=== PATIENT | female | born 1955 | race Caucasian/White ===

== ENCOUNTER → 2016-10-21 | Outpatient (CLI) | payer OTHER ==
[~2016-10-21] MED LIST: ALBU17IN INH; MULT1TAB10 PO; VITA30004 PO
--- NOTE | 2016-10-21 11:02 | REPMRS ---
Patient History The patient states she had a clinical breast exam in 10/28 Baseline Mammogram Patient is postmenopausal. Family history of breast cancer in mother at age 50 or over. Digital Woman Screen Mammo: October 21, 2016 - Exam #: [id number] Bilateral CC and MLO view(s) were taken. Technologist: Soila Solis, Technologist FINDINGS: There are scattered fibroglandular densities. There is no evidence of dominant mass, architectural distortion, or clustered microcalcification typical of malignancy. ASSESSMENT: BI-RADS/ACR category 1 mammogram. Negative. Recommendation Routine screening mammogram of both breasts in 1 year (for women over age 40). This mammogram was interpreted with the aid of an FDA-approved computer-aided dectection system. Electronically Signed By: Stas Dalton MD 10/21/16 [id number]
== END ==
LOC: M WHC 08:10
PROVIDERS: ATTEND Nurse Practitioner Family
DX: Z12.31 Encounter for screening mammogram for malignant neoplasm of breast (principal)

== ENCOUNTER → 2016-10-21 | Outpatient (REF) | payer OTHER | LOC: M SFHCWAGY 08:44 | PROVIDERS: ATTEND Nurse Practitioner Family | DX: Z12.4 Encounter for screening for malignant neoplasm of cervix (principal) ==

== ENCOUNTER → 2017-02-05 | Outpatient (CLI) | payer OTHER ==
[2017-02-05 13:39] LABS: FREE T4 0.95 NG/DL (0.76-1.46)
== END ==
LOC: M LAB 11:34
PROVIDERS: ATTEND Family Medicine
DX: F32.9 Major depressive disorder, single episode, unspecified (principal); E55.9 Vitamin D deficiency, unspecified

== ENCOUNTER → 2017-03-26 | Outpatient (REF) | payer OTHER | LOC: M SFHCPLAZ 15:22 | PROVIDERS: ATTEND Family Medicine | DX: N12 Tubulo-interstitial nephritis, not specified as acute or chronic (principal) ==

== ENCOUNTER 2017-04-14 01:04 | Inpatient (IN) | payer OTHER ==
[~2017-04-14] VITALS: Ht 162.6 cm; Wt 62.6 kg
[2017-04-14] MEDS ORDERED: ALBU83IN INH ×2 (01:13→06:07)
[2017-04-14] MEDS ORDERED: AMBI10TA PO (01:23)
[2017-04-14] MEDS ORDERED: PHEN-239 PO (01:23)
[2017-04-14] MEDS ORDERED: MITI1CAP PO (01:23)
[2017-04-14 02:10] LABS: BASO % 0.2 % (0.0-1.0); EOS # 0.2 K/mm3 (0.0-0.50); EOS % 2.3 % (0.0-3.0); LARGE UNSTAINED CELL # 0.1 K/mm3 (0.0-0.4); LARGE UNSTAINED CELL % 0.7 % (0.0-4.0); LYMPH # 1.6 K/mm3 (1.5-4.5); LYMPH % 19.5 % (24.0-44.0); MEAN CORPUSCULAR HEMOGLOBIN 29.3 pg (27.0-33.0); MEAN CORPUSCULAR HGB CONC 33.4 g/dl (32.0-36.5); MEAN CORPUSCULAR VOLUME 87.6 fl (80.0-96.0); MONO # 0.5 K/mm3 (0.0-0.8); MONO % 5.8 % (0.0-5.0); NEUTROPHILS # 5.7 K/mm3 (1.8-7.7); NEUTROPHILS % 71.4 % (36.0-66.0); PLATELET COUNT, AUTOMATED 307 k/mm3 (150-450); RED CELL DISTRIBUTION WIDTH 12.6 % (11.5-14.5)
[2017-04-14] MEDS ORDERED: IPRATROPIUM 0.5MG/ALBUTEROL 2.5MG INH SOL UD 3ML (DUONEB)(J7620) NEB PRN ×2 (02:15→09:45)
[2017-04-14 02:38] LABS: ABG BASE EXCESS 2.2 (-2.0-2.0); ABG HCO3 25.3 MEQ/L (22.0-26.0); ABG PARTIAL PRESSURE CO2 34.4 mmHg (35.0-45.0); ABG PARTIAL PRESSURE O2 67.5 mmHg (75.0-100.0); ABG STANDARD HCO3 26.4 MEQ/L (22.0-26.0); ABG TOTAL CO2 26.4 MEQ/L (23.0-31.0); ABG pH (ARTERIAL) 7.485 UNITS (7.350-7.450)
[2017-04-14 02:52] LABS: ANION GAP 7 MEQ/L (8-16); BLOOD UREA NITROGEN 8 MG/DL (7-18); CALCIUM LEVEL 9.4 MG/DL (8.8-10.2); CARBON DIOXIDE LEVEL 29 MEQ/L (21-32); CHLORIDE LEVEL 100 MEQ/L (98-107); CREATININE FOR GFR 1.09 MG/DL (0.55-1.02); GLOMERULAR FILTRATION RATE 54.1 (>45); GLUCOSE, FASTING 117 MG/DL (80-110); SODIUM LEVEL 136 MEQ/L (136-145)
[2017-04-14] MEDS ORDERED: ISOVUE-370 76% 100ML VIAL (Q9967) As Ordered ONE (03:35)
--- NOTE | 2017-04-14 04:40 | REPUSA ---
CLINICAL HISTORY: Dyspnea, exclude PE. TECHNIQUE: Multiple incremental axial, coronal and oblique images are obtained from the thoracic inle t to the upper abdomen. Intravenous contrast material was administered as per pulmonary embolism prot ocol. COMMENTS: 6.8x5.9 cm right hilar/middle lobe necrotic mass. Associated right hilar lymphadenopathy measuring 1.5 cm. Associated subcarinal lymphadenopathy measuring 3.2 cm. Moderate changes of chronic bronchitis. Moderate changes of centrilobular pulmonary emphysema. Small sliding hiatal hernia. Small pericardial effusion. Subsegmental atelectatic changes in the lingula. There is excellent opacification of pulmonary arterial system without evidence for pulmonary embolism . Aorta is of normal caliber without evidence for dissection or aneurysm. There is no evidence of pleural or parenchymal mass. There are no pleural effusions. Images of the upper abdomen demonstrate no evidence of adrenal mass. The bony structures are free of lytic or blastic lesions. Multilevel degenerative changes are seen in volving the visualized thoracolumbar spine. Scattered calcifications are seen involving the aorta and major branches compatible with atherosclero sis. IMPRESSION: No evidence for pulmonary embolism. 6.8x5.9 cm right hilar/middle lobe necrotic mass. Associated right hilar lymphadenopathy measuring 1.5 cm. Associated subcarinal lymphadenopathy measuring 3.2 cm. Moderate changes of chronic bronchitis. Moderate changes of centrilobular pulmonary emphysema. Small sliding hiatal hernia. Subsegmental atelectatic changes in the lingula. Loss of volume in the right middle lobe. Thank you for your kind referral of this patient.
[2017-04-14] MEDS ORDERED: ALBU17IN INH (06:07)
[2017-04-14] MEDS ORDERED: VITA200016 PO (06:07)
[2017-04-14] MEDS ORDERED: VITMTA PO (06:07)
--- NOTE | 2017-04-14 06:38 | HPEPDOC ---
General Date of Admission Primary Care Physician: YUMIKO FRAUSTO DO Chief Complaint The patient is a 61-year-old female admitted with a reason for visit of Trouble Breathing. Source: Patient Exam Limitations: No limitations Timing/Duration: Week(s) (5) Severity: Moderate Associated Symptoms: Chest Pain, Cough, Shortness of breath History of Present Illness Ms Carrasco is a 61 y/o female with no known past medical history who presents today for worsening of her SOB, pt stated that about 5 weeks ago she started to note some SOB especially with ambulation, she states it has been getting worse. She also has noted a non-productive cough and has lost 8 lbs in the past week or so without any purposeful intention. She admits to generalized fatigue the past few weeks and a burning chest pain when she bends over as well, denies hx of GERD. She denies abdominal pain, change in bowel or urinary habits, pain with urination or defecation, fever or chills. She quit smoking three months ago but unfortunately smoked for 50+ years prior to that, 1 ppd. She denies drug use and states she has a glass of wine every once in a while. She has no other active complaints. Home Medications Scheduled Multivitamins *[facility] STOCKED* (Thera M Plus *[facility] STOCKED*) 1 Tab Tab, 1 TAB PO DAILY, (Reported) Vitamin D (Vitamin D) 2,000 Unit Cap, 6,000 UNIT PO DAILY, (Reported) Scheduled PRN Albuterol Sulfate (Ventolin Hfa) 200 Puff/8 Gm Aers, 2 PUFF INH Q6H PRN for SHORTNESS OF BREATH, (Reported) Albuterol Sulfate (Albuterol Sulfate) 2.5 Mg/3 Ml Nebu, 2.5 MG INH Q4H PRN for SHORTNESS OF BREATH, (Reported) Allergies Coded Allergies: Aspirin (Unverified Allergy, Severe, HIVES, TROUBLE SWALLOWING, 10/01/16) Penicillins (Verified Allergy, Severe, HIVES AND TROUBLE BREATHING, ) Grambling (Verified Allergy, Severe, HIVES AND TROUBLE BREATHING, ) Tomato (Verified Allergy, Severe, HIVES AND TROUBLE BREATHING, 10/01/16) Family History Significant Family History: No pertinent family hx Social History * Smoker: former Smoker (50 years, 1 ppd) Alcohol: rarely Drugs: denies Psychosocial History: No pertinent psych hx Review of Symptoms Constitutional: Reports: Malaise, Weakness, Denies: Chills, Fever, Night Sweats Eyes: Denies: Pain, Conjunctivae inflammation ENT: Denies: Head Aches Skin: Denies: Rash, Lesions, Jaundice Pulmonary: Reports: Dyspnea, Cough Cardiovascular: Reports: Chest Pain (burning sensation when she leans over) Gastrointestinal: Denies: Nausea, Vomiting, Abdominal Pain, Diarrhea, Constipation Genitourinary: Denies: Dysuria, Frequency Neurological: Reports: Weakness Psych: Reports: Mood Normal Physical Examination General Exam: Positive: Alert, Cooperative, No Acute Distress Eye Exam: Positive: Conjunctiva & lids normal, EOMI, Negative: Sclera icteric ENT Exam: Positive: Atraumatic Neck Exam: Positive: Supple Chest Exam: Positive: Wheezing, Diminished, Negative: Clear to auscultation, Normal air movement, Rales Heart Exam: Positive: Rate Normal, Normal S1, Normal S2, Negative: Murmurs, Rubs Telemetry: Positive: No significant arrhythmia Abdomen Exam: Positive: Normal bowel sounds, Soft, Negative: Tenderness, Hepatospenomegaly Extremity Exam: Negative: Clubbing, Cyanosis, Edema Psych Exam: Positive: Mental status NL Vital Signs Vital Signs Date Time Temp Pulse Resp B/P (MAP) Pulse Ox O2 Delivery O2 Flow Rate FiO2 04/14/17 06:22 96 126/76 (93) 95 04/14/17 05:56 99.1 20 Nasal Cannula 2.0 Laboratory Data Labs 24H Laboratory Tests 2 04/14/17 01:46: White Blood Count 8.0, Red Blood Count 4.08, Hemoglobin 11.9L, Hematocrit 35.7L , Mean Corpuscular Volume 87.6, Mean Corpuscular Hemoglobin 29.3, Mean Corpuscular Hemoglobin Concent 33.4, Red Cell Distribution Width 12.6, Platelet Count 307, Neutrophils (%) (Auto) 71.4H, Lymphocytes (%) (Auto) 19.5L, Monocytes (%) (Auto) 5.8H, Eosinophils (%) (Auto) 2.3, Basophils (%) (Auto) 0.2 , Neutrophils # (Auto) 5.7, Lymphocytes # (Auto) 1.6, Monocytes # (Auto) 0.5, Eosinophils # (Auto) 0.2, Basophils # (Auto) 0.0, Large Unclassified Cells % 0.7 , Large Unclassified Cells # 0.1, D-Dimer, Quantitative 1621.2H, Anion Gap 7L, Glomerular Filtration Rate 54.1, Blood Urea Nitrogen 8, Creatinine 1.09H, Sodium Level 136, Potassium Level 4.0, Chloride Level 100, Carbon Dioxide Level 29, Calcium Level 9.4, Total Creatine Kinase 34, Creatine Kinase MB 1.0, Creatine Kinase MB Relative Index 2.94, Troponin I < 0.02 04/14/17 02:22: Blood Gas Bicarbonate Standard 26.4H, Arterial Blood pH 7.485H, Arterial Blood Partial Pressure CO2 34.4L, Arterial Blood Partial Pressure O2 67.5L, Arterial Blood Total CO2 26.4, Arterial Blood HCO3 25.3, Arterial Blood Base Excess 2.2H , Arterial Blood Oxygen Saturation 93.9L CBC/BMP Laboratory Tests 04/14/17 01:46 Red Blood Count 4.08, Mean Corpuscular Volume 87.6, Mean Corpuscular Hemoglobin 29.3, Mean Corpuscular Hemoglobin Concent 33.4, Red Cell Distribution Width 12.6 , Neutrophils (%) (Auto) 71.4 H, Lymphocytes (%) (Auto) 19.5 L, Monocytes (%) ( Auto) 5.8 H, Eosinophils (%) (Auto) 2.3, Basophils (%) (Auto) 0.2, Neutrophils # (Auto) 5.7, Lymphocytes # (Auto) 1.6, Monocytes # (Auto) 0.5, Eosinophils # ( Auto) 0.2, Basophils # (Auto) 0.0, Calcium Level 9.4, Total Creatine Kinase 34 Problems (1) Shortness of breath Status: Acute Response to Treatment: Stable Problem Text: suspect 2/2 advanced lung disease and lung mass duonebs and O2 CT findings show: No evidence for pulmonary embolism. 6.8x5.9 cm right hilar/middle lobe necrotic mass. Associated right hilar lymphadenopathy measuring 1.5 cm. Associated subcarinal lymphadenopathy measuring 3.2 cm. Moderate changes of chronic bronchitis. Moderate changes of centrilobular pulmonary emphysema. Small sliding hiatal hernia. consult pulmonology for further work up (2) Lung mass Status: Acute Response to Treatment: Stable Problem Text: ct findings show No evidence for pulmonary embolism. 6.8x5.9 cm right hilar/middle lobe necrotic mass. Associated right hilar lymphadenopathy measuring 1.5 cm. Associated subcarinal lymphadenopathy measuring 3.2 cm. Moderate changes of chronic bronchitis. Moderate changes of centrilobular pulmonary emphysema. Small sliding hiatal hernia. pulmonology consult warranted (3) Hypoxia Status: Acute Response to Treatment: Stable Problem Text: Oxygen orders titrate 88-92% (4) DVT prophylaxis Status: Acute Response to Treatment: Stable Problem Text: scd teds Plan / VTE VTE Prophylaxis Ordered?: Yes GME ATTESTATION GME ATTESTATION My preceptor for this patient encounter was physically present in the building during the encounter and was fully available. As needed, all aspects of the patient interview, examination, medical decision making process, and medical care plan development were reviewed and approved by the preceptor. Preceptor is aware and concurs with the plan as stated in the body of this note and will attest to such by his/her cosignature. ATTENDING NOTE Pt seen and examined by me. Findings and plan reviewed with resident. Resident note reviewed and agree with documented findings and plan. 1. Acute hypoxic resp failure with acute copd Pt's o2 sat 88% Supplemental o2 maintain sat 90-92% Continue duonebs pulmonary consult 2. Necrotic lung mass Likely Ca pulm consult ?IR for possible bx will likely need PET and staging CT as outpt. MYLES REYNOSO DO Apr 14, 2017 06:38 Davonte Costa MD Apr 15, 2017 07:43
[2017-04-14] MEDS: TIOTROPIUM INHALER/CAPSULE (SPIRIVA) INH SCH (08:00)
[2017-04-14] MEDS: IPRATROPIUM 0.5MG/ALBUTEROL 2.5MG INH SOL UD 3ML (DUONEB)(J7620) NEB SCH ×3 (08:00→19:57)
--- NOTE | 2017-04-14 08:06 | REP ---
Clinical: Shortness of breath. Technique: PA and lateral. Comparison: None. Findings: Consolidation involving the basilar right upper lobe and trace bibasilar atelectasis noted. Moderate emphysematous changes are appreciated including oligemia involving the right upper lung zone. No effusion. Cardiac silhouette is normal. Skeletal structures are intact. Impression: Moderate basilar right upper lobe consolidation and bibasilar atelectasis with underlying emphysematous changes. Follow-up to resolution recommended. Signed by Isaiah Ruelas MD 04/14/2017 07:57 A
[2017-04-14] MEDS: SYMBICORT 160/4.5MCG INHALER 6GM INH SCH ×2 (09:00→19:57)
[2017-04-14 09:40] VITALS: BP 123/72
[2017-04-14] MEDS ORDERED: ALBUTEROL SULFATE 2.5 MG/0.5 ML INH NEB SOLN INH PRN (09:45)
[2017-04-14] MEDS: VITAMIN D 1,000 INTERNATIONAL UNITS TABLET PO SCH (12:59)
[2017-04-14] MEDS: MULTIVITAMINS/MINERALS THERAP 1 TAB PO SCH (12:59)
[2017-04-14 13:17] VITALS: O2SAT 93
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
--- NOTE | 2017-04-14 14:50 | ECGEPIP ---
Stationary ECG Study [facility] - ED Test Date: 2017-04-14 Pat Name: STARR ARZATE Department: Room: - Gender: F Licensing Coordinator: parveen : 1955 Requested By: PATRICK Ndiaye Order Number: [id number] Reading MD: Carlos Enrique Patel Measurements Intervals Girard Rate: 106 P: 69 DC: 168 QRS: 53 QRSD: 106 T: 52 QT: 333 QTc: 442 Interpretive Statements SINUS TACHYCARDIA POSSIBLE LAE Electronically Signed On 04-14-2017 14:50:24 EDT by Carlos Enrique Patel
[2017-04-14] MEDS: PANTOPRAZOLE 40MG TAB (PROTONIX) PO SCH (15:29)
[2017-04-14 16:00] VITALS: BP 125/80
[2017-04-14 20:00] VITALS: BP 136/76
[2017-04-15] VITALS: BP 125/72
[2017-04-15] MEDS: IPRATROPIUM 0.5MG/ALBUTEROL 2.5MG INH SOL UD 3ML (DUONEB)(J7620) NEB SCH ×4 (01:58→20:00)
[2017-04-15] MEDS: SYMBICORT 160/4.5MCG INHALER 6GM INH SCH ×2 (07:22→19:22)
[2017-04-15] MEDS: TIOTROPIUM INHALER/CAPSULE (SPIRIVA) INH SCH (07:23)
[2017-04-15 07:29] LABS: BASO % 0.5 % (0.0-1.0); EOS # 0.1 K/mm3 (0.0-0.50); EOS % 1.5 % (0.0-3.0); LARGE UNSTAINED CELL # 0.1 K/mm3 (0.0-0.4); LARGE UNSTAINED CELL % 1.3 % (0.0-4.0); LYMPH # 1.8 K/mm3 (1.5-4.5); LYMPH % 20.7 % (24.0-44.0); MEAN CORPUSCULAR HEMOGLOBIN 29.2 pg (27.0-33.0); MEAN CORPUSCULAR HGB CONC 33.5 g/dl (32.0-36.5); MEAN CORPUSCULAR VOLUME 87.1 fl (80.0-96.0); MONO # 0.6 K/mm3 (0.0-0.8); MONO % 6.8 % (0.0-5.0); NEUTROPHILS # 6.1 K/mm3 (1.8-7.7); NEUTROPHILS % 69.2 % (36.0-66.0); PLATELET COUNT, AUTOMATED 315 k/mm3 (150-450); RED CELL DISTRIBUTION WIDTH 12.3 % (11.5-14.5); WHITE BLOOD COUNT 8.8 K/mm3 (4.0-10.0)
[2017-04-15 07:51] LABS: CALCIUM LEVEL 9.4 MG/DL (8.8-10.2); CREATININE FOR GFR 1.1 MG/DL (0.55-1.02); GLOMERULAR FILTRATION RATE 53.6 (>45); POTASSIUM SERUM 4.8 MEQ/L (3.5-5.1)
[2017-04-15 08:00] VITALS: BP 125/68
[2017-04-15] MEDS: MULTIVITAMINS/MINERALS THERAP 1 TAB PO SCH (08:40)
[2017-04-15] MEDS: VITAMIN D 1,000 INTERNATIONAL UNITS TABLET PO SCH (08:40)
[2017-04-15] MEDS: PANTOPRAZOLE 40MG TAB (PROTONIX) PO SCH (08:40)
[2017-04-15 14:06] LABS: INR 1.05
--- NOTE | 2017-04-15 14:14 | IPN ---
DATE: 04/15/2017 TIME PATIENT WAS SEEN: 1330 The patient has been seen and examined at bedside. No acute events overnight. The patient is feeling about the same. The patient has been tolerating breathing treatments well. He denies any chest pain, trouble breathing, abdominal pains, nausea, vomiting, diarrhea or constipation. Denies any other current new complaints. PHYSICAL EXAMINATION: VITAL SIGNS: Temperature 98.1. Pulse 89. Respirations 20. Blood pressure 127/68. Oxygen satting at 92% on room air. GENERAL: The patient is a pleasant, elderly female who was alert, awake and oriented times three, sitting up comfortably in a recliner. HEENT: Normocephalic, atraumatic. Extraocular muscles intact. Mucous membranes moist. Neck supple. No neck lymphadenopathy. CARDIOVASCULAR: Tachycardic. S1, S2. No murmurs. LUNGS: Clear to auscultate bilaterally. No wheeze, rales or rhonchi. ABDOMEN: Positive bowel sounds. Soft. Nontender. Nondistended. No peritoneal signs. No ecchymosis. EXTREMITIES: No edema, clubbing or cyanosis. SKIN: Warm and dry. NEUROLOGIC: Cranial nerves II-XII intact. No focal neurological deficit. LABORATORIES: WBC 8.8, hemoglobin 11.9, hematocrit 35.6 with a platelet count of 315 and MCV of 87.1. Sodium 139, potassium 4.8, chloride 102, bicarbonate 28, BUN 9, creatinine 1.1, GFR 53.6, fasting glucose 106, calcium 9.4. No cultures. No new imaging. ASSESSMENT AND PLAN: 61-year-old female with: 1. Abnormal chest CT which shows a right middle lobe mass of right hilar adenopathy, subcarinal adenopathy. Dr. Spicer has discussed biopsy options with the patient. The patient agrees on a bronchoscopy with endobronchial ultrasound biopsy which has been scheduled for tomorrow at 1:30 p.m. The patient understands the risks and the benefit of the procedure and signed a consent for the procedure yesterday. At this point, we believe the patient has at least Stage III malignancy and may need further workup possibly outpatient. 2. Emphysema. The patient has been started on Spiriva and Symbicort and has been tolerating well. 3. Chest discomfort. Possibly secondary to the mass which does show close to cardiac border on the CTA of the chest. The patient is on trial of Protonix. 4. Nicotine dependence. Currently the patient has no intention of returning to smoking. DISPOSITION: Prepare for bronchoscopic ultrasound biopsy tomorrow afternoon at 1:30. The patient will likely need more outpatient workup in the future. The patient has been discussed with the attending doctor, Dr. Spicer. My preceptor for this patient encounter was Dr. Miles Spicer. The preceptor was physically present in the room during the encounter and was fully available. As needed, all aspects of the patient interview, examination, medical decision making process, and medical care plan development were reviewed and approved by the preceptor. The preceptor is aware and concurs with the plan as stated in the body of this note and will attest to such by his/her cosignature. IMiles, conducted and independent history and bedside physical exam and agree with the assessment and plan as outlined above. MARIAMA
--- NOTE | 2017-04-15 14:32 | IPN ---
DATE OF VISIT: 04/15/2017 SUBJECTIVE: Ms. Carrasco is a 61-year-old female who was seen and examined at the bedside. Patient denies overnight issues. Patient denies chest pain, orthopnea, paroxysmal nocturnal dyspnea (PND). Patient also expressed that her dyspnea has decreased today, and at the time of visit, patient was on room air, which she is tolerating well. Patient denies overnight issues. OBJECTIVE: VITAL SIGNS: Temperature 98.1, pulse 89, respiratory 20, blood pressure 125/68, pulse oximetry 96% on 2 liters nasal cannula. Total intake from yesterday 1020 mL, total output 1800 mL. GENERAL APPEARANCE: Patient was sitting on the bed, no acute distress. Patient was awake, alert, and oriented to time, place, and person. HEENT: Normocephalic, atraumatic. Pupils are equal, reactive to light. Oral mucosa was moist. NECK: Soft, supple. No lymphadenopathy. No thyromegaly. No jugular venous distention (JVD). HEART: Regular rate and rhythm. Normal S1, S2. No rub, gallop, or murmur. LUNGS: Patient has clear breath sounds bilaterally, good air movement. No rhonchi or wheezing was noticed. No accessory muscle use. ABDOMEN: Soft, nontender. Positive bowel sounds in all quadrants. EXTREMITIES: No lower extremity edema. +2 pulses in both lower extremities. No cyanosis or clubbing. LABORATORY DATA: White blood cells 8.8, red blood cells 4.08, hemoglobin 11.9, hematocrit 35.6, MCV 87.1, MCH 29.2, MCHC 33.5, RDW 12.3, platelet count 315, neutrophil percentage 69.2, lymphocyte percentage 20.7, monocyte percentage 6.8, eosinophil percentage 1.5, basophil percentage 0.5, leucocyte percentage 1.3. Sodium 139, potassium 4.8, chloride 102, carbon dioxide 28, anion gap 9, BUN 9, creatinine 1.10, glomerular filtration rate 53.6, fasting glucose 106, calcium 9.4. ASSESSMENT AND PLAN: 1. Lung mass. Dr. Spicer has spoken with the patient regarding the finding regarding abnormal chest CT with the right middle lobe mass of the right hilar adenopathy, subcarinal adenopathy. Dr. Spicer also discussed with the patient regarding biopsy including a CT-guided biopsy; however, patient refused due to phobia of needles, and patient requested to be put asleep for any biopsy. Dr. Spicer has scheduled patient for bronchoscopy for tomorrow with endobrachial ultrasound. Dr. Spicer had discussed with the patient regarding risks and benefit of the procedure. Patient will be nothing by mouth since midnight for procedure tomorrow. 2. Dyspnea. This is possibly secondary to lung mass as well as emphysema. Patient is on DuoNeb. Also, Dr. Spicer has started patient Spiriva and Symbicort. At this time, patient is on room air. 3. Chest discomfort. Dr. Spicer has started patient on trial proton pump inhibitor (Protonix 40 mg by mouth daily). At this time patient is asymptomatic. 4. Tobacco abuse. We have spoken with the patient regarding stopping smoking. 5. Deep venous thrombosis (DVT) prophylaxis. Patient is on thromboembolism deterrents (TEDs) and sequentials. My preceptor for this patient encounter was Dr. Marli Hodges. The preceptor was physically present in the building during the encounter and was fully available. As needed, all aspects of the patient interview, examination, medical decision making process, and medical care plan development were reviewed and approved by the preceptor. The preceptor is aware and concurs with the plan as stated in the body of this note and will attest to such by his/her cosignature. I, Marli Hodges, have both independently examined this patient as well as reviewed the documentation. I have discussed in detail with the resident the findings and plan of treatment as documented in the residents documentation. I will continue to follow the patient and offer further guidance to the patients care as necessary. MARIAMA
[2017-04-15 16:00] VITALS: BP 115/64
[2017-04-15 20:00] VITALS: BP 108/70
[2017-04-16] VITALS (9 sets, daily range): BP systolic 100–153; BP diastolic 57–73
[2017-04-16 07:03] LABS: BASO % 0.2 % (0.0-1.0); EOS # 0.2 K/mm3 (0.0-0.50); EOS % 1.9 % (0.0-3.0); LARGE UNSTAINED CELL # 0.1 K/mm3 (0.0-0.4); LARGE UNSTAINED CELL % 0.9 % (0.0-4.0); LYMPH # 1.4 K/mm3 (1.5-4.5); LYMPH % 17.6 % (24.0-44.0); MEAN CORPUSCULAR HEMOGLOBIN 29.3 pg (27.0-33.0); MEAN CORPUSCULAR HGB CONC 34.3 g/dl (32.0-36.5); MEAN CORPUSCULAR VOLUME 85.6 fl (80.0-96.0); MONO # 0.5 K/mm3 (0.0-0.8); MONO % 6.7 % (0.0-5.0); NEUTROPHILS # 5.6 K/mm3 (1.8-7.7); NEUTROPHILS % 72.7 % (36.0-66.0); PLATELET COUNT, AUTOMATED 294 k/mm3 (150-450); RED CELL DISTRIBUTION WIDTH 12.5 % (11.5-14.5); WHITE BLOOD COUNT 7.7 K/mm3 (4.0-10.0)
[2017-04-16 07:05] LABS: CALCIUM LEVEL 9.2 MG/DL (8.8-10.2); CREATININE FOR GFR 1.07 MG/DL (0.55-1.02); GLOMERULAR FILTRATION RATE 55.3 (>45); POTASSIUM SERUM 4.1 MEQ/L (3.5-5.1)
[2017-04-16] MEDS ORDERED: ROCURONIUM BROMIDE 50 MG/5 ML VIAL/SYRINGE As Ordered ONE (07:32)
[2017-04-16] MEDS ORDERED: PROPOFOL 200 MG/20 ML VIAL As Ordered ONE (07:32)
[2017-04-16] MEDS: TIOTROPIUM INHALER/CAPSULE (SPIRIVA) INH SCH (07:33)
[2017-04-16] MEDS ORDERED: LIDOCAINE 2% INJ 100 MG/5 ML SDV (FOR ANES.) As Ordered ONE (07:33)
[2017-04-16] MEDS: SYMBICORT 160/4.5MCG INHALER 6GM INH SCH ×2 (07:33→19:44)
[2017-04-16] MEDS ORDERED: ONDANSETRON 4MG/2ML VIAL (J2405) As Ordered ONE (07:33)
[2017-04-16] MEDS ORDERED: NS 1,000 ML IV SCH (07:45)
[2017-04-16] MEDS: MULTIVITAMINS/MINERALS THERAP 1 TAB PO SCH (09:00)
[2017-04-16] MEDS: VITAMIN D 1,000 INTERNATIONAL UNITS TABLET PO SCH (09:00)
[2017-04-16] MEDS: PANTOPRAZOLE 40MG TAB (PROTONIX) PO SCH (09:00)
[2017-04-16] MEDS ORDERED: LIDOCAINE VISCOUS 2% SOLN 15ML UDC As Ordered ONE (12:39)
[2017-04-16] MEDS ORDERED: THROMBIN SOLN 20,000 UNITS KIT As Ordered ONE (12:39)
[2017-04-16] MEDS ORDERED: EPINEPHrine 1MG/10ML SYRINGE 1.5IN As Ordered ONE (12:39)
[2017-04-16] MEDS ORDERED: LIDOCAINE 1% SDV INJ 30 ML VIAL As Ordered ONE (12:39)
[2017-04-16] MEDS ORDERED: MIDAZOLAM INJ 2 MG/2 ML VIAL (J2250) As Ordered ONE (13:35)
[2017-04-16] MEDS ORDERED: fentaNYL 100 MCG/2 ML INJECTION (J3010) As Ordered ONE (13:35)
[2017-04-16] MEDS ORDERED: SUGAMMADEX SODIUM 500 MG/5 ML VIAL (BRIDION) As Ordered ONE (14:39)
[2017-04-16] MEDS ORDERED: ALBUTEROL SULFATE 2.5 MG/0.5 ML INH NEB SOLN As Ordered ONE (15:02)
--- NOTE | 2017-04-16 15:16 | ECGEPIP ---
Stationary ECG Study [facility] Test Date: 2017-04-16 Pat Name: STARR ARZATE Department: Room: [place] [address] Gender: F Grid Trimmer: BRAYAN : 1955 Requested By: JEFFERSON Rubio Order Number: [id number] Reading MD: Delfina Gómez Measurements Intervals [place] Rate: 90 P: 66 MT: 150 QRS: 37 QRSD: 104 T: 43 QT: 360 QTc: 443 Interpretive Statements SINUS RHYTHM LOW QRS VOLTAGE IN EXTREMITY LEADS similar to 04/14/17 Electronically Signed On 04-16-2017 15:16:41 EDT by Delfina Gómez
[2017-04-16] MEDS ORDERED: PERCOCET 5MG/325MG TAB PO PRN (15:30)
[2017-04-16] MEDS ORDERED: ONDANSETRON 4MG/2ML VIAL (J2405) IV PRN (15:30)
[2017-04-16] MEDS ORDERED: HYDROmorphone HCL 1 MG/ML SYRINGE (J1170) IV PRN (15:30)
[2017-04-16] MEDS ORDERED: fentaNYL 100 MCG/2 ML INJECTION (J3010) IV PRN (15:30)
[2017-04-16] MEDS ORDERED: LR 1,000 ML IV SCH (15:30)
--- NOTE | 2017-04-16 16:07 | RO ---
DATE OF PROCEDURE: 04/16/2017 PREOPERATIVE DIAGNOSIS: Abnormal chest CT, right middle lobe mass and mediastinal and hilar adenopathy. POSTOPERATIVE DIAGNOSIS: Abnormal chest CT, right middle lobe mass and mediastinal and hilar adenopathy. FINDINGS: Right middle lobe segment mass. PROCEDURE: Bronchoscopy with endobronchial ultrasound. SURGEON: Dr. Miles Spicer ENROLLMENT ELIGIBILITY REPRESENTATIVE: None. ANESTHESIA: General. ESTIMATED BLOOD LOSS: 10 mL. SPECIMENS OBTAINED: 1. Cytology brush right middle lobe. 2. Endobronchial brush right middle lobe. 3. Fine-needle aspiration subcarinal node. 4. Bronchoalveolar lavage right middle lobe. No complications. DESCRIPTION OF PROCEDURE: After informed consent was reviewed with the patient in the preoperative area, she pointed to the lower sternum and stated she had some chest discomfort. It was nonradiating, did not go to her neck or jaw or arm. She had no diaphoresis associated with this. No shortness of breath. No palpitations. The pain had been there for 10 minutes. She states she feels that it is her anxiety. I performed an EKG; there were no EKG changes when compared to her previous one 3 days ago. It resolved with Versed. She was brought to the operating room (OR) number three. General anesthesia was initiated and the procedure was then handed over to me. Time-out was performed with two patient identifiers, identifying correct site, correct procedure. The 8.5 endotracheal tube was then sprayed with Cetacaine spray and the Q190 bronchoscope was inserted into the airway. All airways were suctioned clear. Helga was fairly sharp. Trachea was midline. Right and left mainstem bronchus was normal. RB 1-3 was normal without endobronchial lesions, RB 4 had a large tumor in the airway. This did not extend further than the medial segment. The lateral segment of the right middle lobe was patent. RB 6-10 was patent without endobronchial lesions. LB 1-10 was inspected. LB 1-5 was normal. The posterior basal segment and the superior basal segments were fishmouth. Saline was administered, airways opened and showed no endobronchial lesions but did have some stringy mucus. There were no endobronchial lesions on the left despite the appearance of a fishmouth in the left lower lobe. After inspection of the airways, the bronchoscope was brought back to the right middle lobe medial segment. Cytology brush and forceps biopsies were taken of this area. There was a minimal amount of bleeding. After adequate sampling was performed, the bronchoscope was removed and the endobronchial ultrasound was inserted. Subcarinal fine needle aspirations were taken, what appeared to be enough for a cell block. After these samples were taken, I then returned back to the right middle lobe, took additional forceps biopsies and performed a bronchoalveolar lavage. After all samples were taken, hemostasis was assured, airways were suctioned and the bronchoscope was removed. There were no observed complications.
--- NOTE | 2017-04-16 16:12 | REP ---
Clinical: Status post bronchoscopy. Comparison: 04/14/2017. Findings: Right lower lobe density is again appreciated and increased surrounding infiltrate cannot be excluded. No pneumothorax. No definite effusion. The left cardiac silhouette normal. Skeletal structures intact. Impression: Right lower lobe density with suspected new surrounding opacity. No pneumothorax. Signed by Isaiah Ruelas MD 04/16/2017 04:03 P
[2017-04-16] MEDS ORDERED: LevoFLOXacin IV 500 MG in APPROPRIATE DILUENT 1 EA IV SCH (17:00)
[2017-04-16] MEDS: ACETAMINOPHEN TAB 650MG DOSE (2X325MG) PO PRN (17:46)
--- NOTE | 2017-04-16 18:46 | IPN ---
DATE: 04/16/2017 SUBJECTIVE: Ms. Carrasco is a 61-year-old female who was seen and examined at the bedside. The patient denies chest pain, orthopnea or paroxysmal nocturnal dyspnea (PND). The patient also denies nausea, vomiting, diarrhea or constipation. The patient also denies dyspnea and overnight issues. The patient is nothing by mouth (n.p.o.) since last night. The patient is scheduled to have bronchoscopy done by Dr. Spicer this afternoon. OBJECTIVE: VITAL SIGNS: Temperature 100.2, pulse 83, respiratory rate 18, blood pressure 112/65, pulse oximetry 90% on room air. GENERAL APPEARANCE: The patient was sitting on the bed in no acute distress. The patient was awake, alert and oriented to time, place and person. HEENT: Normocephalic, atraumatic. Pupils are equal and reactive to light. Oral mucosa is moist. NECK: Soft, supple, No lymphadenopathy, thyromegaly or jugular venous distention (JVD). HEART: Regular rate and rhythm. Normal S1, S2. LUNGS: The patient has clear breath sounds bilaterally. Good air movement. ABDOMEN: Soft, nontender. Positive bowel sounds in all quadrants. LABORATORY DATA: White blood cells 7.7, red blood cells 3.71, hemoglobin 10.9, hematocrit 31.7, MCV 85.6, MCH 29.3, MCHC 34.3, RDW 12.5, platelet count 294, neutrophil percentage 72.7, lymphocyte percentage 17.6, monocyte percentage 6.7, eosinophil percentage 1.9, basophil percentage 0.9, leukocyte percentage 0.9, basophil percentage 0.2. Sodium 138, potassium 4.1, chloride 102, carbon dioxide 28, anion gap 8, BUN 11, creatinine 1.07, glomerular filtration rate 55.3, fasting glucose 104, calcium 9.2. ASSESSMENT AND PLAN: 1. Lung mass. Dr. Spicer will perform bronchoscopy with biopsy today. The patient is nothing by mouth since last night. The patient was started on IV fluid. Based on Dr. Spicer recommendation, the patient may be able to be discharged. 2. Dyspnea. This is possibly secondary to lung mass as well as emphysema. The patient is on DuoNeb. Also, the patient is on Spiriva and Symbicort. 3. Chest discomfort. It has resolved. At this time, we will continue the patient on Protonix 40 mg by mouth. 4. Tobacco abuse. This is a chronic issue. The patient has been advised regarding stopping smoking. 5. Deep vein thrombosis (DVT) prophylaxis. The patient is on thromboembolism deterrents (TEDs) and sequentials. My preceptor for this patient encounter was Dr. Hodges. The preceptor was physically present in the building during the encounter and was fully available. As needed, all aspects of the patient interview, examination, medical decision making process, and medical care plan development were reviewed and approved by the preceptor. The preceptor is aware and concurs with the plan as stated in the body of this note and will attest to such by his/her cosignature. I, Marli Hodges, have both independently examined this patient as well as reviewed the documentation. I have discussed in detail with the resident the findings and plan of treatment as documented in the residents documentation. I will continue to follow the patient and offer further guidance to the patients care as necessary. MARIAMA
[2017-04-17] VITALS: BP 125/70
[2017-04-17] MEDS: ACETAMINOPHEN TAB 650MG DOSE (2X325MG) PO PRN (01:05)
[2017-04-17 04:00] VITALS: BP 125/66
[2017-04-17] MEDS: TIOTROPIUM INHALER/CAPSULE (SPIRIVA) INH SCH (07:21)
[2017-04-17] MEDS: SYMBICORT 160/4.5MCG INHALER 6GM INH SCH (07:21)
[2017-04-17 07:33] LABS: BASO % 0.4 % (0.0-1.0); EOS # 0.1 K/mm3 (0.0-0.50); EOS % 1.3 % (0.0-3.0); LARGE UNSTAINED CELL # 0.1 K/mm3 (0.0-0.4); LARGE UNSTAINED CELL % 1.5 % (0.0-4.0); LYMPH # 1.2 K/mm3 (1.5-4.5); LYMPH % 16.9 % (24.0-44.0); MEAN CORPUSCULAR HEMOGLOBIN 29.1 pg (27.0-33.0); MEAN CORPUSCULAR HGB CONC 33.3 g/dl (32.0-36.5); MEAN CORPUSCULAR VOLUME 87.3 fl (80.0-96.0); MONO # 0.5 K/mm3 (0.0-0.8); MONO % 6.9 % (0.0-5.0); NEUTROPHILS # 5.3 K/mm3 (1.8-7.7); PLATELET COUNT, AUTOMATED 265 k/mm3 (150-450); RED CELL DISTRIBUTION WIDTH 12.3 % (11.5-14.5); WHITE BLOOD COUNT 7.2 K/mm3 (4.0-10.0)
[2017-04-17 07:52] LABS: CREATININE FOR GFR 1.13 MG/DL (0.55-1.02); GLOMERULAR FILTRATION RATE 51.9 (>45)
[2017-04-17] MEDS: PANTOPRAZOLE 40MG TAB (PROTONIX) PO SCH (08:39)
[2017-04-17] MEDS: VITAMIN D 1,000 INTERNATIONAL UNITS TABLET PO SCH (08:40)
[2017-04-17] MEDS: MULTIVITAMINS/MINERALS THERAP 1 TAB PO SCH (08:40)
[2017-04-17 08:45] VITALS: BP 124/73
[2017-04-17] MEDS ORDERED: SYMB16INH INH (09:41)
[2017-04-17] MEDS ORDERED: TIOT18INH INH (09:41)
[2017-04-17] MEDS ORDERED: CIPR500T3 PO (09:43)
[2017-04-17] MEDS ORDERED: LEVA1TAB2 PO (10:54)
--- NOTE | 2017-05-07 10:41 | DSES ---
DATE OF ADMISSION: 04/14/2017 DATE OF DISCHARGE: 04/17/2017 PRIMARY PHYSICIAN: Dr. Koko Ambriz CONSULTANTS: Dr. Spicer PROCEDURES: Bronchoscopy with biopsy. PRIMARY DIAGNOSIS: Lung mass. SECONDARY DIAGNOSES: Dyspnea. Chest discomfort. Tobacco abuse. DISCHARGE HOME MEDICATION: - Symbicort 160/4.5 two puffs inhaler twice a day - Levaquin 500 mg by mouth daily for 6 days - Spiriva one inhalation daily - albuterol two puffs inhaler every 6 hours as needed shortness of breath - albuterol 2.5 mg inhaler every 4 hours as needed shortness of breath - multivitamin one tablet by mouth daily - vitamin D6, 600 units by mouth daily HOSPITAL COURSE: Ms. Carrasco is a 61-year-old female with unknown past medical history who presented due to worsening of shortness of breath. CT angiography was performed and showed no evidence of pulmonary embolism however, there was 6.8 x 5.9 cm right hilar/middle lobe necrosis mass. It was found also there was associated right hilar lymphadenopathy measuring 1.5 cm and associated subcarinal lymphadenopathy measuring 3.2 cm, moderate changes of the chronic bronchitis, as well as moderate changes of the centrilobular pulmonary embolism, as well as a small sliding hiatal hernia. Patient was started on oxygen as well as breathing treatments. Dr. Spicer was consulted, who discussed with the patient different form of biopsy including CT-guided biopsy, which could be done quicker for her, and she stated that she would not be able to tolerate the thought of a needle as she has a phobia of needles. She stated that she would like to be put to sleep for any biopsy. Dr. Spicer discussed with the patient regarding bronchoscopy with the endobronchial ultrasound and explained the risk of this procedure as well as general anesthesia, which is not present with the CT-guided biopsy; however, she wishes to proceed with the bronchoscopy. Also, Dr. Spicer in detail explained the other risks, including bleeding, injury to surrounding structures, as well as and difficulty breathing. However, patient wishes to continue with the procedure. Procedure was performed, and the pathology report indicated right middle lobe endobronchial biopsy shows poorly differential squamous cell carcinoma and subcarinal lymph node fine needle aspiration cell block indicated metastatic poorly differentiated squamous cell carcinoma. Bronchoalveolar wash of the right middle lobe was consistent with squamous cell carcinoma. Patient was started on breathing treatments. We have added breathing treatments including Spiriva as well as Symbicort based on recommendation from Dr. Spicer. Repeated chest x-ray, which was done on 04/16/2017, indicated right lower lobe density with suspected new surrounding opacity; no pneumothorax. At the time of discharge, patient was medically optimized. Patient was discharged home and asked to followup with pulmonology and primary care physician. Also, patient was started on antibiotic (Levaquin 500 mg by mouth daily for 6 days). DISCHARGE PLACEMENT: Home. FOLLOWUP: Please followup with pulmonology and primary care provider (PCP) as soon as possible. ACTIVITY: Activity as tolerated by patient. My preceptor for this patient encounter was Dr. Hodges. The preceptor was physically present in the building during the encounter and was fully available. As needed, all aspects of the patient interview, examination, medical decision making process, and medical care plan development were reviewed and approved by the preceptor. The preceptor is aware and concurs with the plan as stated in the body of this note and will attest to such by his/her cosignature. I, Marli Hodges, have both independently examined this patient as well as reviewed the documentation. I have discussed in detail with the resident the findings and plan of treatment as documented in the residents documentation. I will continue to follow the patient and offer further guidance to the patients care as necessary during this hospital stay. MARIAMA
== END 2017-04-17 11:40 | disposition home or self-care (01) | DRG 121 ==
LOC: M ED 01:04 → M ED INP 07:01 → M PED 08:14
PROVIDERS: ATTEND Internal Medicine
PROC: 07B74ZZ Excision of Thorax Lymphatic, Percutaneous Endoscopic Approach (ICD-10-PCS; 2017-04-16)
PROC: 0B958ZX Drainage of Right Middle Lobe Bronchus, Via Natural or Artificial Opening Endoscopic, Diagnostic (ICD-10-PCS; 2017-04-16)
PROC: 0BB58ZX Excision of Right Middle Lobe Bronchus, Via Natural or Artificial Opening Endoscopic, Diagnostic (ICD-10-PCS; principal; 2017-04-16 13:30)
DX: C34.2 Malignant neoplasm of middle lobe, bronchus or lung (principal); J96.01 Acute respiratory failure with hypoxia; I31.3 Pericardial effusion (noninflammatory); C79.89 Secondary malignant neoplasm of other specified sites; J44.1 Chronic obstructive pulmonary disease with (acute) exacerbation; R91.8 Other nonspecific abnormal finding of lung field; K44.9 Diaphragmatic hernia without obstruction or gangrene; Z88.0 Allergy status to penicillin; Z88.6 Allergy status to analgesic agent; Z91.018 Allergy to other foods; Z87.891 Personal history of nicotine dependence

== ENCOUNTER → 2017-04-22 | Outpatient (CLI) | payer OTHER ==
[~2017-04-22] MED LIST changes: +ALBU83IN INH; +AMBI10TA PO; +CIPR500T3 PO; +KEYT1INJ IV; +LEVA1TAB2 PO; +LEVA750T7; +MITI1CAP PO; +PHEN-239 PO; +SYMB16INH INH; +TIOT18INH INH; +VITA200016 PO; +VITMTA PO
--- NOTE | 2017-04-23 16:57 | REP ---
PET/CT: History: Initial staging malignant neoplasm of the lung. 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 Comparisons: Comparison is made with CT study of the chest from 04/14/2017 and chest x-ray from this same date. TECHNIQUE: 49 minutes following the intravenous injection of a 10.5 mCi dose of F-18 FDG, three-dimensional PET scintigraphy is acquired from the skull base to the proximal thighs. Triplanar noncontrast CT scanning is acquired through the same anatomic range for attenuation correction, and image registration with scan parameters optimized to minimize radiation exposure to the patient. PET scintigraphy and CT datasets were fused and displayed on a workstation with multiplanar and projection display capability. PET/CT Findings: Most of the large consolidated area in the distribution of the right middle lobe shows hypermetabolic uptake with maximum standard uptake value 13.1. The hypermetabolic area measures 7.1 x 6.0 cm in right to left by transverse dimension x 7.0 cm cranial to caudal. In addition, there is a mediastinal hypermetabolic adenopathy. A 3.8 cm subcarinal lymph node is seen with a maximum standard uptake value of 15.1. There is AP window region lymphadenopathy with maximum standard uptake value 13.5. An anterior mediastinal hypermetabolic uptake is seen maximum standard uptake value 14.9. Pretracheal hypermetabolic uptake is seen with maximum standard uptake value of 8.6. There are non hypermetabolic internal mammary lymph nodes and superior mediastinal lymph nodes. A small right pleural effusion has developed. There is slight pericardial thickening. There is hypermetabolic linear uptake along the course of the posterior pericardium just behind the left atrium maximum standard uptake value ranging up to 4.6. This is suspicious for pericardial disease. No other hypermetabolic pulmonary parenchymal uptake is seen. The head and neck soft tissues are unremarkable. No adrenal mass or hypermetabolic uptake is seen. There is a large simple cyst in the left kidney. No abnormal abdominal or pelvic hypermetabolic FDG accumulation is seen. Impression: A large mass in the right middle lobe is hypermetabolic extending up to the obstructed right middle lobe bronchus. There is hypermetabolic mediastinal lymphadenopathy and suspicion of posterior pericardial hypermetabolic uptake. A small right pleural effusion is noted. Signed by Kimo Dalton MD 04/24/2017 11:18 A
== END ==
LOC: M PLARAD 14:26
PROVIDERS: ATTEND Internal Medicine Pulmonary Disease
DX: C34.11 Malignant neoplasm of upper lobe, right bronchus or lung (principal)

== ENCOUNTER → 2017-04-28 | Outpatient (REF) | payer OTHER ==
[2017-04-28 13:33] LABS: INR 1.04
== END ==
LOC: M LAB REF 12:16
PROVIDERS: ATTEND Internal Medicine Medical Oncology
DX: C34.90 Malignant neoplasm of unspecified part of unspecified bronchus or lung (principal)

== ENCOUNTER → 2017-04-28 | Outpatient (CLI) | payer OTHER ==
[~2017-04-28] MED LIST changes: +ISOVUE-370 76% 100ML VIAL (Q9967) As Ordered ONE
--- NOTE | 2017-04-28 13:21 | REP ---
Chest CT with IV contrast, CT pulmonary angiography for pulmonary emboli: Comparison 04/14/2017. There are no emboli in the pulmonary trunk or central pulmonary arteries. There are no emboli in the pulmonary artery lobe or segment branches. There is a large mass extending from the right hilus into the right middle lobe as previously. The right middle lobe bronchus appears obstructed and right middle lobe artery appears partially obstructed likely from compression by the large mass. This is unchanged. There is a small right pleural effusion as an interval change. There is extensive bullous replacement of the lung parenchyma bilaterally compatible with bullous emphysema. This is unchanged. There is a linear density in the right lower lobe compatible with atelectasis versus scar. This is unchanged. There are no infiltrates or effusions or masses on the left. There is mediastinal and right hilar adenopathy as previously. The thoracic aorta is unremarkable. Cardiac size appears normal. However, the large right lung mass abuts the pericardium/myocardium on the right, as previously. The visualized portions of the liver, gallbladder, pancreas and spleen are unremarkable except that there may be splenomegaly. The spleen is not imaged in entirety. Impression: There are no pulmonary emboli. There is a small right pleural effusion as a change from 04/14/2017. There is extensive bullous emphysema, unchanged. There is a linear density in the left lower lobe, unchanged, compatible with atelectasis versus parenchymal scar. There is a large right hilar mass extending into right middle lobe abutting the right cardiac margin and surrounding the right middle lobe bronchus and pulmonary artery, occluding the bronchus and partially occluding the artery. Mediastinal and right hilar adenopathy is again identified. Signed by London Coello MD 04/28/2017 01:12 P
== END ==
LOC: M RAD 12:12
PROVIDERS: ATTEND Internal Medicine Medical Oncology
DX: R00.0 Tachycardia, unspecified (principal); C34.90 Malignant neoplasm of unspecified part of unspecified bronchus or lung

== ENCOUNTER → 2017-04-29 | Outpatient (CLI) | payer OTHER ==
[~2017-04-29] MED LIST changes: -ISOVUE-370 76% 100ML VIAL (Q9967) As Ordered ONE
--- NOTE | 2017-04-30 13:55 | ECHO ---
DATE OF PROCEDURE: 04/29/2017 DATE OF : 1955 AGE: 61 REFERRING PROVIDER: Dr. Carisa Barrientos. PATIENT LOCATION: Outpatient. REASON FOR ECHOCARDIOGRAM: Chemotherapy drug monitoring. 2D MEASUREMENTS: IVS: 1.0 cm LV: 3.5 cm LVPW: 1.1 cm LA: 3.4 cm Aorta: 2.6 cm IVC: 1.6 cm DOPPLER MEASUREMENTS: Peak velocity across the aortic valve: 1.5 m/s Peak velocity across the LVOT: 1.0 m/s Mitral E: 0.94 Maximum tricuspid valve velocity: 2.5 m/s 2D COMMENTS: 1. Normal left ventricular size, wall thickness and a normal global left ventricular systolic function. The estimated left ventricular systolic ejection fraction is 60% to 65%. 2. Subjectively, the left atrium appeared to be mildly enlarged. Normal right atrium and right ventricle. 3. The atrial septum appeared to be normal without evidence of defect or shunt. 4. Normal aortic root. 5. No pericardial effusion seen. 6. Minimally calcified aortic valve with normal leaflet excursion. The mitral valve leaflet motion as well as the tricuspid valve leaflet motion appeared to be normal. The pulmonic valve and proximal pulmonary artery branches were not well visualized. 7. The inferior vena cava was normal in size, central venous pressure is probably normal. DOPPLER: It detects trace aortic regurgitation, moderate mitral regurgitation, and mild tricuspid regurgitation. The calculated pulmonary artery systolic pressure varies between 30 to 40 mmHg. Assessment of the left ventricular diastolic function was limited, patient appeared to be in atrial flutter during the test. IMPRESSION: 1. Normal global left ventricular systolic function. 2. Aortic valve sclerosis with trace aortic regurgitation but no aortic stenosis. 3. Moderate mitral regurgitation with mildly enlarged left atrium. 4. Mild tricuspid regurgitation with mild pulmonary hypertension. 5. Patient was noted during the test to be in a narrow complex supraventricular tachycardia that seems to be atrial flutter with a heart rate that varied between 140-150 beats per minute. MTDD
== END ==
LOC: M CARPUL 11:38
PROVIDERS: ATTEND Internal Medicine Medical Oncology
DX: C34.90 Malignant neoplasm of unspecified part of unspecified bronchus or lung (principal)

== ENCOUNTER → 2017-05-07 | Outpatient (CLI) | payer OTHER ==
--- NOTE | 2017-05-07 12:19 | PFTRPT ---
Tech: Kelly ESCOBAR RRT Age: 61 Sex: Female Race: Height: 64.00 Inches Weight: 141.00 Lbs BSA: 1.69 Diagnosis: Lung Ca PULMONARY FUNCTION REPORT ORDERING PROVIDER: London Baptiste MD DATE OF SERVICE: 05/07/17 SPIROMETRY: Pre and post bronchodilator study of excellent technical quality. The forced vital capacity is reduced. The FEV1 is out of proportion. The obstructive index is, therefore, reduced. FLOW VOLUME LOOP: The expiratory limb of the flow volume loop is consistent with flow rate limitation. No significant bronchodilator response is identified. LUNG VOLUMES: The total lung capacity is normal. The residual volume suggests air trapping. DIFFUSION CAPACITY: The diffusion capacity is reduced, but does correct for alveolar volume. HEMOGLOBIN: No hemoglobin is available for correction. AIRWAY MECHANICS: Airways resistance and conductance are normal. IMPRESSION: Mild to moderate obstructive ventilatory impairment with underlying air trapping and a decrease in the absolute diffusion capacity. Please correlate clinically. MTDD
--- NOTE | 2017-05-09 08:55 | RADONC ---
RADIATION ONCOLOGY CONSULTATION NOTE: DATE: 05/07/2017 CHART NUMBER: DIAGNOSIS: Right lung cancer. STAGE: IIIB. ECOG PERFORMANCE STATUS: Zero. CONSULTATION NOTE: Mrs. 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 HISTORY OF PRESENT ILLNESS: The patient was in the usual state of health and has a greater than 50 pack-year smoking history. She has had chronic shortness of breath and cough. The patient reports that early February or so she had progressive dyspnea. She has had no hemoptysis. A CT scan was done on 04/14/2017 that showed a 6.8 cm x 5.9 cm right hilar/middle lobe necrotic mass. There was notable right hilar lymphadenopathy as well as subcarinal lymphadenopathy. On 04/16/2017, the patient underwent endobronchial biopsy and pathology revealed a poorly differentiated squamous cell carcinoma involving the right middle lobe, as well as metastatic poorly differentiated squamous cell carcinoma and a subcarinal lymph node. On 04/22/2017, a PET scan was done, which revealed a large consolidated right middle lobe mass showing hypermetabolic uptake with a standard SUV value of 13.1. The hypermetabolic area measured 7.1 cm x 6 cm in the right to left by transverse dimensions and 7 cm caudal to cranial dimension. There was also noted to be a 3.8 cm subcarinal node with an SUV value of 15.1. There was an AP window lymph node with an SUV value of 13.5. There was anterior mediastinal hypermetabolic uptake seen with an SUV value of 14.8. There were pretracheal hypermetabolic lymph nodes noted with an SUV value of 8.6. There were not hypermetabolic but enlarged internal mammary nodes and superior mediastinal nodes. There was some slight pericardial thickening. There is hypermetabolic linear uptake along the course of the posterior pericardium just to the left of the atrium with an SUV value of 4.6. This was suspicious for pericardial disease. The patient was seen by medical oncology with what was thought to be a clinical stage T3 (likely pericardial involvement), N3 (contralateral mediastinal involvement) poorly differentiated squamous cell carcinoma with right middle lobe and hilar extension as well as mediastinal adenopathy. The patient was started on chemotherapy with cisplatin and is now presenting to us for consideration of external beam radiation therapy. PAST MEDICAL HISTORY: The patient's past medical history is positive for a tubal ligation 30 years ago and carpal tunnel syndrome. SOCIAL HISTORY: The patient has smoked one pack of cigarettes per day for almost 50 years. She does not abuse alcohol. ALLERGIES: The patient is allergic to PENICILLIN and ASPIRIN. FAMILY HISTORY: The patient's family history is positive for mother with breast cancer. REVIEW OF SYSTEMS: The patient's review of systems is positive for some headaches, weakness in arms and legs, decreased energy and physical limitations. She also reports some ringing in her ears. She denies nausea, vomiting, diplopia. She does have headaches, diplopia, anorexia, weight loss, visual disturbances, urinary difficulties or neurological problems. She denies any noticeable shortness of breath. PHYSICAL EXAMINATION: The patient is a well-developed, well-nourished, white female, in no acute distress. HEENT exam is normocephalic, atraumatic. Extraocular movements are intact. There is no palpable cervical, supraclavicular, infraclavicular, axillary, or inguinal lymphadenopathy present. Lungs are clear to auscultation and percussion. Heart has a regular rate and rhythm. Abdomen is benign with no hepatosplenomegaly, masses, or tenderness. Skeletal examination reveals no tenderness to pressure or percussion of the bony skeleton. Extremities reveal no clubbing, cyanosis, or edema. Neurologic exam is grossly intact, as is the remainder of the physical examination. ASSESSMENT: I have had a very lengthy discussion with this patient with regards to radiation therapy. We discussed logistics of treatment planning, simulation subsequent fractionated daily radiation treatments. I do not know whether or not this woman at this point would benefit or be able to tolerate radiation treatments. I have scheduled her therefore for a pulmonary function tests to be undertaken. In addition, once pulmonary function test is completed, a differential lung scan will be required. I have personally reviewed the patient's PET scan, which shows extensive disease. Clearly a significant amount of lung would be sacrificed in order to include this in a radiation field. I sincerely doubt at this point whether or not this patient can tolerate this treatment. In order to further evaluate that as noted above, I have ordered a pulmonary function test to be undertaken as a first step. In addition, I am ordering differential lung scans to be undertaken as noted above as well. I have set this patient up for discussion at multidisciplinary tumor conference next Thursday. I have scheduled the patient to see me again in followup consultation following completion of her pulmonary function test, differential lung scan and discussion at tumor conference. Final recommendations will be made at that point. Thank you for allowing us to participate in the care of this very pleasant woman. If I could be of any further assistance in the meantime, please feel free to contact me anytime. I will keep you informed as to any new situation as it develops. cc: MD Miles Gallagher, DO [facility]
== END ==
LOC: M ONCR 10:08
PROVIDERS: ATTEND Radiology Radiation Oncology
DX: C34.90 Malignant neoplasm of unspecified part of unspecified bronchus or lung (principal)

== ENCOUNTER → 2017-05-08 | Outpatient (CLI) | payer OTHER ==
--- NOTE | 2017-05-08 11:08 | REP ---
PA and lateral chest: Comparisons are the PA and lateral chest dated 04/14/[address] of 04/28/2017. The the patient has a known right hilar mass. There is a right pleural effusion that has increased in size. I suspect there is atelectasis throughout the right middle lobe and possibly right lower lobe atelectasis. However, this could be artifact from the increasing right pleural effusion. Right upper lobe is clear. Left lung is clear. Cardiac size is normal. Signed by London Coello MD 05/08/2017 10:59 A
--- NOTE | 2017-05-08 11:46 | REP ---
NUCLEAR DIFFERENTIAL LUNG VENTILATION PERFUSION SCAN: Following the intravenous administration of 1 mCi of technetium 99m tagged MAA and inhalation of 2 mCi of technetium 99m DTPA Aerosol, images of the lungs are obtained in the anterior and posterior projections. There is a much greater degree of ventilation and perfusion on the left compared to the right. Small matching defect is seen in the left apex. Large matching defects are seen in the right lung. Counts are obtained in the upper, middle and lower thirds of each lung. The mean perfusion of the left lung is 76.1% and of the right lung 23.9%. Mean ventilation left lung is 67.9% and right lung 32.1%. Signed by London Pino MD 05/08/2017 03:29 P
== END ==
LOC: M RAD 09:45
PROVIDERS: ATTEND Radiology Radiation Oncology
DX: C34.90 Malignant neoplasm of unspecified part of unspecified bronchus or lung (principal)

== ENCOUNTER → 2017-05-14 | Outpatient (CLI) | payer OTHER ==
--- NOTE | 2017-05-14 10:28 | RADONC ---
RADIATION ONCOLOGY PROGRESS NOTE: DATE: 05/14/2017 CHART NUMBER: [id number]. DIAGNOSIS: Right lung cancer. STAGE: IIIB. ECOG PERFORMANCE STATUS: Zero. PROGRESS NOTE: Ms. Carrasco is a very pleasant, 61-year-old white female with the diagnosis of what appears to be a stage IIIB poorly differentiated squamous cell carcinoma of the right hilum and the right middle lobe as well as the mediastinum and pericardial area. She presented to us initially on 05/07/2017 for discussion of possible external beam radiation therapy as a therapeutic option. I had ordered a pulmonary function test, which was done that same day, and her FEV-1 is 1.0. The diffusion capacity is 42%. I presented the patient at our multidisciplinary tumor conference yesterday and we reviewed the overall picture of this patient. Clearly, she will not be able to tolerate radiation. There would be significant loss of both left and right lung volume in a radiated field and her pulmonary functions will not tolerate this. In addition, we would need to incorporate the entire heart, which would be prohibitive. This is not curable and we would not wish to destroy this patient's remaining quality of life. I have therefore explained to the patient that at this time radiation is not an option. I have recommended she continue with her systemic therapy. I have not set her up for any followup in this office. I let her know that she will be referred back if the situation changes. cc: MD Miles Gallagher, DO [facility]
== END ==
LOC: M ONCR 10:06
PROVIDERS: ATTEND Radiology Radiation Oncology
DX: C34.01 Malignant neoplasm of right main bronchus (principal)

== ENCOUNTER 2017-05-21 09:58 | Outpatient (CLI) | payer OTHER ==
[~2017-05-21 09:58] MED LIST changes: -KEYT1INJ IV; -LEVA750T7
[2017-05-21] MEDS ORDERED: diphenhydrAMINE 25 MG CAP PO ONE (10:30)
[2017-05-21] MEDS ORDERED: ACETAMINOPHEN TAB 650MG DOSE (2X325MG) PO ONE (10:30)
[2017-05-21 13:01] VITALS: BP 156/81
[2017-05-21 13:30] VITALS: BP 158/84
[2017-05-21 14:30] VITALS: BP 152/84
[2017-05-21 16:00] VITALS: BP 158/90
== END 2017-05-21 16:30 | disposition home or self-care (01) ==
LOC: M OPCLIPED 09:58 → M PED 10:01 → M OPCLIPED 16:30
PROVIDERS: ATTEND Nurse Practitioner Family
DX: D64.81 Anemia due to antineoplastic chemotherapy (principal); Z88.8 Allergy status to other drugs, medicaments and biological substances; Z88.0 Allergy status to penicillin
CPT/HCPCS: 36430; 86850; 86900; 86901; 86920; P9016

== ENCOUNTER → 2017-05-22 | Outpatient (CLI) | payer OTHER ==
[~2017-05-22] MED LIST changes: +ISOVUE-370 76% 100ML VIAL (Q9967) As Ordered ONE; +KEYT1INJ IV; +LEVA750T7
--- NOTE | 2017-05-22 11:09 | REP ---
CT of the chest with IV contrast: Comparison is 04/28/2017. The patients known large right hilar mass extending into the right middle lobe abutting the right cardiac margin and encasing the bronchus and pulmonary artery to the right middle lobe is again identified and unchanged in size. The mediastinal and right hilar adenopathy is unchanged. There is a small right pleural effusion that has increased in size from the prior study. Bullous emphysema is again identified, unchanged. The band of atelectasis identified previously in the right lower lobe is no longer present. The left lung is clear and unchanged. The thoracic aorta is unremarkable. Cardiac size is normal. There is no pericardial effusion. In the upper abdomen. Question of splenomegaly is again raised. There is a large cyst arising from the left renal upper pole measuring nine point 2 cm diameter. This was not included on the comparison scan. There is no adrenal mass. Impression: The patient's known right hilar mass is unchanged. There is a small right pleural effusion that has slightly increased in size. The mediastinal and right hilar adenopathy is unchanged. The bullous emphysema is unchanged. The band of discoid atelectasis identified previously in the right lower lobe has resolved. Possible splenomegaly. Large left renal cyst. Signed by London Coello MD 05/22/2017 11:01 A
== END ==
LOC: M RAD 10:21
PROVIDERS: ATTEND Internal Medicine Medical Oncology
DX: C34.90 Malignant neoplasm of unspecified part of unspecified bronchus or lung (principal)
CPT/HCPCS: 71260; Q9967

== ENCOUNTER → 2017-05-25 | Outpatient (REF) | payer OTHER ==
[~2017-05-25] MED LIST changes: -ISOVUE-370 76% 100ML VIAL (Q9967) As Ordered ONE
[2017-05-25 11:33] LABS: INR 1.07
== END ==
LOC: M LAB REF 11:05
PROVIDERS: ATTEND Internal Medicine Medical Oncology
DX: C34.90 Malignant neoplasm of unspecified part of unspecified bronchus or lung (principal)

== ENCOUNTER 2017-06-10 08:08 | Day surgery (SDC) | payer OTHER ==
[~2017-06-10] VITALS: Ht 163.8 cm; Wt 60.3 kg
[~2017-06-10 08:08] MED LIST changes: -KEYT1INJ IV; -LEVA750T7
[2017-06-10] MEDS ORDERED: BUPIVACAINE LIPOSOME/PF 1.3% 20 ML VIAL (13.3MG/ML)(EXPAREL) As Ordered ONE (08:10)
[2017-06-10] MEDS ORDERED: LIDOCAINE 1% SDV INJ 30 ML VIAL As Ordered ONE (08:10)
[2017-06-10] MEDS ORDERED: HEPARIN SOD (PORCINE) 5000 UNITS/ML VIAL As Ordered ONE (08:10)
[2017-06-10] MEDS ORDERED: LR 1,000 ML IV ONE (08:30)
[2017-06-10] MEDS ORDERED: VANCOMYCIN HCL 1,000 MG, VIAL MATE ADAPTER 1 EACH in D5W 250 ML IV ONE (08:45)
[2017-06-10] MEDS ORDERED: MUPIROCIN 2% OINT 22 GM TUBE TOP ONE (08:45)
[2017-06-10 08:47] LABS: MEAN CORPUSCULAR HEMOGLOBIN 28.6 pg (27.0-33.0); MEAN CORPUSCULAR HGB CONC 33.9 g/dl (32.0-36.5); MEAN CORPUSCULAR VOLUME 84.3 fl (80.0-96.0); RED CELL DISTRIBUTION WIDTH 15.3 % (11.5-14.5); WHITE BLOOD COUNT 11.3 K/mm3 (4.0-10.0)
[2017-06-10 08:54] LABS: INR 1.08
[2017-06-10 09:03] LABS: CALCIUM LEVEL 10.2 MG/DL (8.8-10.2); CREATININE FOR GFR 1.39 MG/DL (0.55-1.02); GLOMERULAR FILTRATION RATE 40.9 (>45); POTASSIUM SERUM 4.6 MEQ/L (3.5-5.1)
[2017-06-10] MEDS ORDERED: LIDOCAINE 2% INJ 100 MG/5 ML SDV (FOR ANES.) As Ordered ONE (09:58)
[2017-06-10] MEDS ORDERED: PROPOFOL 200 MG/20 ML VIAL As Ordered ONE (09:58)
[2017-06-10] MEDS ORDERED: fentaNYL 100 MCG/2 ML INJECTION (J3010) As Ordered ONE (09:59)
[2017-06-10] MEDS ORDERED: MIDAZOLAM INJ 2 MG/2 ML VIAL (J2250) As Ordered ONE (09:59)
--- NOTE | 2017-06-10 11:30 | RO ---
DATE OF PROCEDURE: 06/10/2017 PREPROCEDURE DIAGNOSIS: Need for vascular access, advanced lung cancer, need for chemotherapy. POSTPROCEDURE DIAGNOSIS: Need for vascular access, advanced lung cancer, need for chemotherapy. PROCEDURE: Insertion of left subclavian Qicggx-W-Rbiz with fluoroscopic control. SURGEON: Dr. Filiberto Moore [place] SYSTEMS: ANESTHESIA: FINDINGS: All contours at the end of the procedure were smooth and the catheter was positioned at the junction of the right atrium and superior vena cava (SVC). PROCEDURE: Under satisfactory MAC anesthesia, the patient was prepped and draped in the usual sterile fashion. The infraclavicular fossa was infiltrated with 1% Xylocaine and the vein was found on the first pass. A wire was placed without difficulty with the production of PVCs. The wire's position was confirmed with fluoroscopy. An incision approximately 2 cm below the infraclavicular fossa was then made for the port. This was carried down through subcuticular tissue and a subcutaneous pocket was created with both sharp and blunt dissection. The wire site was incised, dilated and the catheter was placed with lower numbers down into the right atrium. A tunnel was created and the catheter pulled through the tunnel under fluoroscopic control so that it was positioned at the junction of the right atrium and SVC. The catheter was cut to an appropriate size. Collar was placed and connected to the Obrprp-W-Ufuq. The Bdgjap-A-Hrjs was then flushed with heparinized saline. The Ccfoxe-P-Weye was then secured to the chest wall with two #2-0 silk sutures. It was properly positioned and the position of both the catheter and the port were confirmed by fluoroscopy. All contours were smooth. The port was flushed with a final flush of heparin of 100 units/mL. The port aspirated and flushed well. The wound was closed with running #3-0 Vicryl suture and the skin was closed with running #4-0 Monopril subcuticular suture. The patient tolerated the procedure well and left the operating room in satisfactory condition for the recovery room.
--- NOTE | 2017-06-10 11:49 | REP ---
Chest x-ray: Limited study, two views. History: Vhhpdo-Q-Xuyk placement. 10 seconds of fluoroscopy time is reported. Findings: A sequence of two last image hold fluoro spot radiographs of the chest document left-sided Oenawt-Q-Wxiu catheter placement. Signed by Kimo Dalton MD 06/10/2017 01:43 P
[2017-06-10 12:05] VITALS: BP 118/71
--- NOTE | 2017-06-10 17:00 | REP ---
Chest x-ray: Two views: History: Port. Comparison chest x-ray 05/08/2017. Findings: There is a large area of dense consolidation and/or mass-like opacity in the right middle lobe distribution as seen on recent CT study. There is no evidence of pneumothorax or hydrothorax today. Heart is not enlarged. The thoracic spine shows a mild levoconvex curve. Impression: Large area of consolidation and mass-like opacity in the right middle lobe distribution. Otherwise negative. Signed by Kimo Dalton MD 06/10/2017 05:12 P
--- NOTE | 2017-06-10 22:26 | REP ---
Clinical: Status post Soifnj-L-Kyhr. Comparison: 06/10/2017. Findings: Left-sided Toqrch-P-Vlqb identified with tip in the SVC. Visualized cardiac silhouette is normal. No pneumothorax. Chronic changes are appreciated along with superimposed right middle lobe mass/consolidation. No pleural effusion. Skeletal structures intact. Impression: 1. Bmzoda-T-Yowe in satisfactory position. No pneumothorax. 2. Continued evidence for right middle lobe mass/consolidation. Signed by Isaiah Ruelas MD 06/10/2017 10:17 P
--- NOTE | 2017-06-10 23:24 | ECGEPIP ---
Stationary ECG Study [facility] Test Date: 2017-06-10 Pat Name: STARR ARZATE Department: Room: - Gender: F Slope Tender: Juanpablo : 1955 Requested By: Filiberto Macedo Order Number: [id number] Reading MD: Joe Nieves Measurements Intervals [place] Rate: 106 P: 70 [place]: 140 QRS: 51 QRSD: 98 T: 62 QT: 333 QTc: 442 Interpretive Statements SINUS TACHYCARDIA POSSIBLE LEFT ATRIAL ENLARGEMENT ABNORMAL RHYTHM ECG Poor R-wave progression. Increased heart rate compared with 04/16/2017. Electronically Signed On 06-10-2017 23:24:18 EDT by Joe Nieves
== END 2017-06-10 12:50 | disposition home or self-care (01) ==
LOC: M SDC 08:08
PROVIDERS: ATTEND Thoracic Surgery (Cardiothoracic Vascular Surgery)
DX: C34.31 Malignant neoplasm of lower lobe, right bronchus or lung (principal); C78.1 Secondary malignant neoplasm of mediastinum; J44.9 Chronic obstructive pulmonary disease, unspecified; J43.1 Panlobular emphysema; F41.9 Anxiety disorder, unspecified; F32.9 Major depressive disorder, single episode, unspecified; I34.0 Nonrheumatic mitral (valve) insufficiency; I48.3 Typical atrial flutter; R94.31 Abnormal electrocardiogram [ECG] [EKG]; K57.32 Diverticulitis of large intestine without perforation or abscess without bleeding; R06.02 Shortness of breath; R29.898 Other symptoms and signs involving the musculoskeletal system; J45.909 Unspecified asthma, uncomplicated; Z88.0 Allergy status to penicillin; Z88.6 Allergy status to analgesic agent; Z91.018 Allergy to other foods; Z79.899 Other long term (current) drug therapy; Z87.891 Personal history of nicotine dependence; Z98.51 Tubal ligation status
CPT/HCPCS: 36415; 36561; 71010; 71020; 76000; 80048; 85027; 85610; 93005; C1788

== ENCOUNTER → 2017-06-17 | Outpatient (REF) | payer OTHER ==
[~2017-06-17] MED LIST changes: +KEYT1INJ IV; +LEVA750T7
== END ==
LOC: M LAB REF 16:29
PROVIDERS: ATTEND Internal Medicine Medical Oncology
DX: C34.90 Malignant neoplasm of unspecified part of unspecified bronchus or lung (principal)

== ENCOUNTER → 2017-06-18 | Outpatient (CLI) | payer OTHER ==
--- NOTE | 2017-06-18 10:17 | REP ---
Clinical: Emphysema. Technique: PA and lateral. Comparison: 06/10/2017. Findings: Mediastinum and cardiac silhouette are stable. Bfqzfp-O-Mjqc again identified with tip in the SVC. A large somewhat triangular-shaped opacity obscures portion of the right cardiac silhouette likely reflecting consolidation/mass within the right middle lobe. Underlying emphysematous changes noted including oligemia to the bilateral upper lung zones (right greater than left). No effusion. No pneumothorax. Skeletal structures intact. Impression: 1. Large right middle lobe mass / consolidation unchanged. 2. Emphysematous changes. Signed by Isaiah Ruelas MD 06/18/2017 10:08 A
== END ==
LOC: M SMT 09:47
PROVIDERS: ATTEND Thoracic Surgery (Cardiothoracic Vascular Surgery)
DX: J43.1 Panlobular emphysema (principal)

== ENCOUNTER → 2017-06-23 | Outpatient (REF) | payer OTHER ==
[2017-06-23 20:05] LABS: CALCIUM OXALATE CRYSTALS MODERATE
== END ==
LOC: M LAB REF 16:54
PROVIDERS: ATTEND Internal Medicine Medical Oncology
DX: C34.90 Malignant neoplasm of unspecified part of unspecified bronchus or lung (principal)

== ENCOUNTER → 2017-07-08 | Outpatient (REF) | payer OTHER | LOC: M LAB REF 15:15 | PROVIDERS: ATTEND Internal Medicine Medical Oncology | DX: C34.90 Malignant neoplasm of unspecified part of unspecified bronchus or lung (principal) ==

== ENCOUNTER → 2017-07-08 | Outpatient (REF) | payer OTHER | LOC: M LAB REF 16:09 | PROVIDERS: ATTEND Internal Medicine Medical Oncology | DX: C34.90 Malignant neoplasm of unspecified part of unspecified bronchus or lung (principal) ==

== ENCOUNTER → 2017-07-09 | Outpatient (CLI) | payer OTHER ==
[~2017-07-09] MED LIST changes: +ISOVUE-370 76% 100ML VIAL (Q9967) As Ordered ONE
--- NOTE | 2017-07-10 06:14 | REP ---
Clinical: Shortness of breath. Comparison: 05/22/17. Findings: The ill-defined mass/consolidation involving the right middle lobe appears to have increased in size from prior examination which may reflect element of postobstructive atelectasis. The mass was noted to be inseparable from the right heart border and pericardium there now appears to be significant ill-defined multinodular and irregular pericardial thickening along with mediastinal adenopathy which appears more prominent than prior examination but cannot be further evaluated due to the lack of contrast enhancement. A small right pleural effusion is identified which is decreased from prior examination. The remaining aerated bilateral lung aranda demonstrate advanced COPD and emphysematous changes with scattered scarring. Musculoskeletal structures are intact. Impression: 1. Examination is limited by the lack of intravenous contrast enhancement. However, in comparison to prior examination there appears to be increased overall size to the mass / consolidation involving the right middle lobe which may in part represent postobstructive atelectasis/pneumonia. 2. There appears to be significant increased irregular, nodular pericardial thickening as well as suspected increased mediastinal adenopathy. 3. Continued evidence for advanced COPD/emphysematous changes and scattered scarring as well as small right pleural effusion which may be minimally decreased in size from prior examination. Signed by Isaiah Ruelas MD 07/10/2017 06:05 A
== END ==
LOC: M RAD 10:01
PROVIDERS: ATTEND Internal Medicine Medical Oncology
DX: R06.02 Shortness of breath (principal)

== ENCOUNTER 2017-07-10 10:07 | Inpatient (IN) | payer OTHER ==
[~2017-07-10] VITALS: Ht 162.6 cm; Wt 63.8 kg
[~2017-07-10 10:07] MED LIST changes: -ISOVUE-370 76% 100ML VIAL (Q9967) As Ordered ONE; -KEYT1INJ IV; -LEVA750T7
[2017-07-10] MEDS ORDERED: KEYT1INJ IV (10:22)
[2017-07-10] MEDS ORDERED: LEVA750T7 (10:22)
[2017-07-10 11:11] LABS: BASO % 0.2 % (0.0-1.0); EOS # 0.1 10^3/uL (0.0-0.50); EOS % 0.7 % (0.0-3.0); IMMATURE GRANULOCYTE % 1.9 % (0-0); LYMPH # 1.2 10^3/uL (1.5-4.5); LYMPH % 7.1 % (24.0-44.0); MEAN CORPUSCULAR HEMOGLOBIN 27.3 pg (27.0-33.0); MEAN CORPUSCULAR HGB CONC 31.2 g/dl (32.0-36.5); MEAN CORPUSCULAR VOLUME 87.3 fl (80.0-96.0); MONO # 1.1 10^3/uL (0.0-0.8); MONO % 6.8 % (0.0-5.0); NEUTROPHILS # 13.9 10^3/uL (1.8-7.7); NEUTROPHILS % 83.3 % (36.0-66.0); PLATELET COUNT, AUTOMATED 319 10^3/uL (150-450); RED CELL DISTRIBUTION WIDTH 16.2 % (11.5-14.5); WHITE BLOOD COUNT 16.7 10^3/uL (4.0-10.0)
--- NOTE | 2017-07-10 11:31 | REP ---
Portable chest, single AP view, the patient sitting, 11:11 a.m.: Comparison studies are the PA and lateral chest of 06/18/[address] of 07/09/2017. The patient's known right middle lobe mass is unchanged. The right upper lobe remains clear. Left lung is clear. Cardiac size is normal. There is no pleural effusion. Signed by London Coello MD 07/10/2017 11:22 A
[2017-07-10] MEDS ORDERED: diphenhydrAMINE INJ 50MG/ML VIAL (J1200) IV STA (11:40)
[2017-07-10 11:45] LABS: ALBUMIN 2.8 GM/DL (3.2-5.2); ALBUMIN/GLOBULIN RATIO 0.57 (1.00-1.93); ALKALINE PHOSPHATASE 169 U/L (45-117); ALT/SGPT 46 U/L (12-78); ANION GAP 7 MEQ/L (8-16); AST/SGOT 28 U/L (15-37); BILIRUBIN,DIRECT 0.3 MG/DL (0.0-0.2); BILIRUBIN,TOTAL 1.1 MG/DL (0.2-1.0); BLOOD UREA NITROGEN 35 MG/DL (7-18); CARBON DIOXIDE LEVEL 26 MEQ/L (21-32); CHLORIDE LEVEL 102 MEQ/L (98-107); CREATININE FOR GFR 1.61 MG/DL (0.55-1.02); GLOMERULAR FILTRATION RATE 34.5 (>45); GLUCOSE, FASTING 103 MG/DL (80-110); POTASSIUM SERUM 3.8 MEQ/L (3.5-5.1); SODIUM LEVEL 135 MEQ/L (136-145); TOTAL PROTEIN 7.7 GM/DL (6.4-8.2)
[2017-07-10] MEDS ORDERED: methylPREDNISolone INJ 125 MG/2 ML VIAL (J2930) IV ONE (11:45)
[2017-07-10] MEDS ORDERED: IPRATROPIUM 0.5MG/ALBUTEROL 2.5MG INH SOL UD 3ML (DUONEB)(J7620) NEB ONE (11:45)
[2017-07-10] MEDS ORDERED: FAMOTIDINE IV BAG 40 MG in APPROPRIATE DILUENT 1 EA IV ONE (11:45)
[2017-07-10] MEDS ORDERED: NS 1,000 ML IV ONE (11:45)
[2017-07-10] MEDS ORDERED: ALBUTEROL SULFATE 2.5 MG/0.5 ML INH NEB SOLN INH ONE (11:45)
[2017-07-10 12:00] LABS: CALCIUM LEVEL 14.6 MG/DL (8.8-10.2)
[2017-07-10] MEDS ORDERED: ISOVUE-370 76% 100ML VIAL (Q9967) As Ordered ONE (12:43)
[2017-07-10] MEDS ORDERED: cefTRIAXone SOD 1 GM VIAL (J0696) As Ordered ONE (13:41)
[2017-07-10] MEDS ORDERED: cefTRIAXone SOD 1 GM in D5W 50 ML IV ONE (13:45)
--- NOTE | 2017-07-10 14:13 | REP ---
CT HEAD WITHOUT AND WITH CONTRAST: HISTORY: Rule out metastasis. CONTRAST: Isovue 370, 75 mL. Areas of decreased attenuation are present in the periventricular white matter. This represents small vessel ischemic disease. There is no intraparenchymal hemorrhage, mass or midline shift. There is no abnormal enhancement. The ventricular system and cortical sulci are dilated consistent with minimal volume loss. There is extracerebral collection. The visualized sinuses are clear. IMPRESSION: 1. Small vessel ischemic disease. 2. Minimal volume loss. Signed by Tam Kyle MD 07/10/2017 02:37 P
[2017-07-10] MEDS ORDERED: SYMB16INH INH (14:27)
[2017-07-10] MEDS ORDERED: AZTREONAM 1 GM in D5W 50 ML IV STA (14:55)
[2017-07-10] MEDS ORDERED: ONDANSETRON 4MG/2ML VIAL (J2405) IV PRN (15:15)
[2017-07-10] MEDS ORDERED: cefTRIAXone SOD 1 GM in D5W 50 ML IV SCH (15:15)
[2017-07-10] MEDS ORDERED: PERCOCET 5MG/325MG TAB PO PRN (15:15)
[2017-07-10] MEDS ORDERED: ONDANSETRON 4 MG TAB (S0181) PO PRN (15:15)
--- NOTE | 2017-07-10 16:48 | HPEPDOC ---
[facility] Medical History & Physical Date of Admission Jul 10, 2017 History and Physical HISTORY AND PHYSICAL Date of admission: 07/10/2017 PCP: Dr. Ida Barajas Chief complaint: My oncologist sent me over here HPI: 61-year-old female with stage III squamous cell lung carcinoma in the right middle lobe diagnosed in March of this year, COPD, depression/anxiety who presents to the emergency department because she was seen at her oncologist's office today, and was instructed to go to the emergency room. The patient states that when she was at the oncologist, they reviewed a CT of her chest that was obtained yesterday, and her oncologist felt like the cancer had spread , and that she needed to be evaluated in the emergency department. When I spoke to Dr. Barrientos myself, she tells me that she was indeed concerned that the CT of her chest could possibly represent a postobstructive pneumonia, but she was more concerned that the patient seemed potentially confused and might have had metastases to her brain. CT of the head with and without contrast in the emergency department reveals no evidence of metastases. However, the patient is noted to be hypercalcemic with a UTI. She is also noted to be in a flutter with RVR. According to Dr. Barrientos, when she first met the patient, she was in a flutter, but this resolved after the patient received some chemotherapy. Unfortunately, the patient was not able to tolerate continued chemotherapy, and Dr. Barrientos switched her to Keytruda. It appears that the Aflutter has now returned, and imaging is concerning that the lung mass has grown, and is impinging on her right atrium. Of note, when specifically asked, the patient states that she has been very tired and not eating well. She reports that she has been so weak that she feels like she has been "walking like a drunk." Past medical history: stage III squamous cell lung carcinoma in the right middle lobe diagnosed in March of this year, COPD, depression/anxiety, A flutter likely induced by impingement of her lung mass on her right atrium Past surgical history: BTL, bilateral carpal tunnel repair, port placement Family history: Breast cancer, CVA Social history: The patient currently lives with her daughter and her daughter' s family. The daughter and her evidently just recently , and the ex son-in-law has informed the patient, as well as his now ex- and children that they have 3 weeks to vacate the home. She states that they have nowhere to move and no money. She quit smoking in April of this year when she was diagnosed with cancer, and states that although she only ever used to drink occasional alcohol, she has not been drinking any alcohol since beginning treatment for her cancer. Allergies: Aspirin, contrast media, penicillins, strawberry, tomato Review of systems: General: Negative for fever and chills Eyes: Negative for vision changes and ocular discharge ENT: Negative for sore throat and nose bleed Cardiovascular: Negative for chest pain and palpitations Respiratory: Positive for cough with phlegm, negative for shortness of breath GI: Negative for nausea, vomiting, diarrhea. Positive for constipation Musculoskeletal: Negative for neck and back pain Skin: Negative for rash Neuro: Negative for headache, dizziness, numbness, tingling Psych: Positive for depression, negative for suicidal ideation Endocrine: Positive for polyuria : Positive for frequency, negative for dysuria Heme: Negative for bleeding Home meds: See below Physical exam: Vital signs: Vital Sign - Last 24 Hours 07/10/17 07/10/17 07/10/17 07/10/17 10:07 11:09 11:09 11:13 Temp 98.7 Pulse 137 Resp 16 B/P (MAP) 101/65 (77) 101/72 (82) Pulse Ox 97 O2 Delivery Room Air Room Air 07/10/17 07/10/17 07/10/17 07/10/17 11:22 11:28 11:37 11:43 Pulse 136 136 B/P (MAP) 104/62 (76) 93/63 (73) Pulse Ox 94 95 07/10/17 07/10/17 07/10/17 07/10/17 11:52 11:58 12:07 12:13 Pulse 136 136 B/P (MAP) 96/68 (77) 95/68 (77) Pulse Ox 100 94 07/10/17 07/10/17 07/10/17 07/10/17 12:22 12:28 12:43 12:58 Pulse 136 134 134 B/P (MAP) 95/68 (77) 97/66 (76) Pulse Ox 94 94 94 07/10/17 07/10/17 07/10/17 07/10/17 13:01 13:16 13:28 13:31 Pulse 134 132 B/P (MAP) 104/67 (79) 100/65 (77) Pulse Ox 94 96 07/10/17 07/10/17 07/10/17 07/10/17 13:43 13:46 13:58 14:01 Pulse 132 132 B/P (MAP) 105/70 (82) 98/67 (77) Pulse Ox 94 93 07/10/17 07/10/17 14:13 14:16 Pulse 132 B/P (MAP) 105/69 (81) Pulse Ox 95 Gen.: awake, alert, no acute distress Eyes: Extraocular movements intact, normal sclera ENT: Moist mucous membranes Cardiovascular: Very tachycardic Lungs: clear to auscultation bilaterally, no rales, rhonchi, or wheeze Abdomen: Soft, NT/ND, normal BS Musculoskeletal: normal range of motion Extremities: No peripheral edema Neuro: alert and oriented 3, normal speech, no focal deficits Psych: Intermittently tearful, denies SI Labs and radiology: See below WBC 16.7 Hemoglobin 9.9 BUN 35, creatinine 1.6 Lactate 2.1 Calcium 14.6 UA shows nitrites, 3+ esterase, too numerous to count WBCs, 3+ bacteria Urine culture pending, blood culture pending Urine culture from 927 grew Escherichia coli which was sensitive to Bactrim, Rocephin, Zosyn, and Merrem, aztreonam Chest x-ray shows no acute changes CT of the head is unremarkable for any acute findings Assessment and plan: 61-year-old female with stage III squamous cell lung carcinoma in the right middle lobe diagnosed in March of this year, COPD, depression/anxiety who presents to the emergency department because she was seen at her oncologist's office today, and was instructed to go to the emergency room. She is admitted with acute on chronic kidney disease, UTI, hypercalcemia, and atrial flutter with RVR. 1. Acute on chronic kidney disease stage III: Patient's baseline creatinine appears to be in the low ones, and her creatinine upon admission is 1.6. We will continue IV fluids and monitor daily creatinine. 2. UTI: UA is consistent with UTI and the patient endorses frequency. Current urine culture is pending, but a urine culture completed 2 days prior to today grew Escherichia coli. Given the patient's allergies, she was started on aztreonam. She is currently afebrile with a white count of 16.7 which we will continue to trend. 3. Hypercalcemia: Patient's calcium upon admission was 14.6, which is likely related to her malignancy. We will hydrate her and follow daily calciums. I discussed the case with Dr. Barrientos, and she recommends one dose of pamidronate. 4. Atrial flutter with RVR: The patient will be monitored on telemetry and troponins will be trended. We will also check an echocardiogram. It appears that this is secondary to her lung mass impinging on her right atrium. I have discussed the case with Dr. Chiang, and he has graciously agreed to see the patient in consultation. Per his recommendations, we will be starting her on some oral scheduled metoprolol, and when he evaluates her, he will make further recommendations, including whether or not she needs full anticoagulation. He did state that he feels digoxin is not a good option for her at the moment given her elevated calcium. 5. COPD: Currently at baseline. Continue home albuterol and Symbicort. 6. Depression/anxiety: The patient evidently sees an outpatient counselor. She currently denies any SI. Continue to monitor. Her home situation appears to be exacerbating her underlying anxiety, as well as her medical condition, and we will consult patient family services for aid. 7. Cancer: At this time, there does not appear to be any evidence of spread to the brain. I have discussed the case with Dr. Barrientos, who said that although she is not available in person over the weekend, she would be available by phone for the attending physician and/or family to speak with. DVT prophylaxis: Heparin Dispo: admit as an inpatient to the service of Dr. Steward CODE STATUS: Full code Vital Signs Vital Signs Date Time Temp Pulse Resp B/P (MAP) Pulse Ox O2 Delivery O2 Flow Rate FiO2 07/10/17 14:16 132 95 07/10/17 14:13 105/69 (81) 07/10/17 11:09 Room Air 07/10/17 10:07 98.7 16 Laboratory Data Labs 24H Laboratory Tests 2 07/10/17 10:54: White Blood Count 16.7H, Red Blood Count 3.63L, Hemoglobin 9.9L, Hematocrit 31.7L, Mean Corpuscular Volume 87.3, Mean Corpuscular Hemoglobin 27.3, Mean Corpuscular Hemoglobin Concent 31.2L, Red Cell Distribution Width 16.2H, Platelet Count 319, Neutrophils (%) (Auto) 83.3H, Lymphocytes (%) (Auto) 7.1L, Monocytes (%) (Auto) 6.8H, Eosinophils (%) (Auto) 0.7, Basophils (%) (Auto) 0.2 , Neutrophils # (Auto) 13.9H, Lymphocytes # (Auto) 1.2L, Monocytes # (Auto) 1.1H , Eosinophils # (Auto) 0.1, Basophils # (Auto) 0.0, Immature Granulocyte # (Auto ) 0.3H, Nucleated Red Blood Cells % (auto) 0.0, Anion Gap 7L, Glomerular Filtration Rate 34.5L, Calcium Level 14.6*H, Aspartate Amino Transf (AST/SGOT) 28, Alanine Aminotransferase (ALT/SGPT) 46, Alkaline Phosphatase 169H, Total Bilirubin 1.1H, Direct Bilirubin 0.3H, Total Creatine Kinase 21L, Creatine Kinase MB 1.0, Creatine Kinase MB Relative Index 4.76H, Troponin I < 0.02, Total Protein 7.7, Albumin 2.8L, Albumin/Globulin Ratio 0.57L, Thyroid Stimulating Hormone (TSH) 2.830 07/10/17 10:55: Urine Appearance CLEAR, Urine Color YELLOW, Urine pH 5.0, Urine Specific [place] 1.014, Urine Protein 1+H, Urine Glucose (UA) NEGATIVE, Urine Ketones NEGATIVE, Urine Urobilinogen 0.2, Urine Bilirubin NEGATIVE, Urine Leukocyte Esterase 3+H, Urine Blood NEGATIVE, Urine Nitrite POSITIVE, Urine WBC (Auto) TNTCH, Urine RBC (Auto) 14H, Urine Hyaline Casts (Auto) 0, Urine Bacteria (Auto ) 3+H, Urine Squamous Epithelial Cells 1, Urine Mucus (Auto) SMALL, Urine Sperm (Auto) , Lactic Acid Level 2.1*H CBC/BMP Laboratory Tests 07/10/17 10:54 Red Blood Count 3.63 L, Mean Corpuscular Volume 87.3, Mean Corpuscular Hemoglobin 27.3, Mean Corpuscular Hemoglobin Concent 31.2 L, Red Cell Distribution Width 16.2 H, Neutrophils (%) (Auto) 83.3 H, Lymphocytes (%) (Auto ) 7.1 L, Monocytes (%) (Auto) 6.8 H, Eosinophils (%) (Auto) 0.7, Basophils (%) ( Auto) 0.2, Neutrophils # (Auto) 13.9 H, Lymphocytes # (Auto) 1.2 L, Monocytes # (Auto) 1.1 H, Eosinophils # (Auto) 0.1, Basophils # (Auto) 0.0 Microbiology Microbiology 07/10/17 Blood Culture, Received Pending 07/10/17 Blood Culture, Received Pending 07/10/17 Urine Culture, Received Pending Home Medications Scheduled (Keytruda) 100 Mg/4 Ml Inj, Unknown Dose IV Q2WK Budesonide/Formoterol (Symbicort 160-4.5 Mcg/Act) 60 Puff/Inhaler Aers, 2 PUFF INH BID Budesonide/Formoterol (Symbicort 160-4.5 Mcg/Act) 60 Puff/Inhaler Aers, 2 PUFF INH BID Multivitamins *[facility] STOCKED* (Thera M Plus *[facility] STOCKED*) 1 Tab Tab, 1 TAB PO DAILY Vitamin D (Vitamin D) 2,000 Unit Cap, 6,000 UNIT PO DAILY Scheduled PRN Albuterol Sulfate (Ventolin Hfa) 200 Puff/8 Gm Aers, 2 PUFF INH Q6H PRN for SHORTNESS OF BREATH Albuterol Sulfate (Albuterol Sulfate) 2.5 Mg/3 Ml Nebu, 2.5 MG INH Q4H PRN for SHORTNESS OF BREATH Allergies Coded Allergies: Aspirin (Unverified Allergy, Severe, HIVES, TROUBLE SWALLOWING, 07/10/17) Penicillins (Verified Allergy, Severe, HIVES AND TROUBLE BREATHING, ) [place] (Verified Allergy, Severe, HIVES AND TROUBLE BREATHING, 07/10/17 ) Tomato (Verified Allergy, Severe, HIVES AND TROUBLE BREATHING, 07/10/17) Contrast Media (Verified Allergy, Unknown, 07/10/17) ABIDA GONZALEZ Jul 10, 2017 16:48
[2017-07-10] MEDS ORDERED: PAMIDRONATE DISODIUM FOR INJ 60 MG in D5W 1,000 ML IV ONE (18:00)
[2017-07-10] MEDS: NS 1,000 ML IV SCH (18:39)
[2017-07-10 18:40] VITALS: BP 129/72
[2017-07-10] MEDS: METOPROLOL TART 12.5 MG PER 1/2 TAB PO SCH (19:32)
[2017-07-10 20:00] VITALS: BP 93/64
--- NOTE | 2017-07-10 20:18 | CR ---
DATE OF CONSULTATION: 07/10/2017 REFERRING PHYSICIAN: Dr. Deja Bueno INDICATION: Atrial flutter. HISTORY OF PRESENT ILLNESS: Mrs. Carrasco is previously unknown to me. She is a 61-year-old female who was diagnosed with squamous cell lung cancer in April 2017. She has been undergoing chemotherapy, but was referred for hospitalization from Dr. Floyd groves because the CT scan performed yesterday demonstrated suspicion for pneumonia and progression of the disease. On the presentation to emergency room, she was found to be in atrial flutter with mostly 2:1 conduction and ventricular rate in 130s. She was asymptomatic from this regard. She specifically denies any sensation of palpitation or chest discomfort. She does admit that she is feeling tired all the time, has been sleeping many hours a day and also reports significant exertion intolerance with dyspnea being limiting. An electrocardiogram besides atrial flutter did not reveal any additional abnormalities. Her blood pressure has been relatively low between 100 and 110 mm systolic and so far she has not received any rate controlling medications. Besides atrial flutter she was simultaneously to have fairly severe hypocalcemia. CT and CT angiography of the head revealed no evidence for brain metastases. PAST MEDICAL HISTORY: 1. Squamous cell lung CA as above. 2. COPD. 3. Depression, anxiety. 4. Atrial flutter reportedly was seen once before. She tells me that she was wearing an event recorder for approximately 1 month and just returned it earlier this week. PAST SURGICAL HISTORY: Positive only for port placement. FAMILY HISTORY: Her mother of cerebrovascular accident. She also reports family history of breast cancer. SOCIAL HISTORY: The patient is originally from [place], but lives in [place] for many years and recently in our area. She lives with her daughter and her family. She was and her ex- . She does not drink. She quit smoking in April after she was diagnosed with lung cancer. There is no significant alcohol use. 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 She has several children, but only the daughter that she lives with is close to her. OUTPATIENT MEDICATIONS: Positive only for Keytruda. ALLERGIES She reports to ASPIRIN, CONTRAST, PENICILLIN, STRAWBERRY and TOMATO. REVIEW OF SYSTEMS: She denies any recent fever, chills, nausea or vomiting. She does have some anorexia, but denies any nausea, vomiting, no abdominal pain. No chest pain. No syncope or near-syncope. No peripheral edema. No history of bleeding of any sorts, specifically denies any epistaxis, blood per rectum or hematuria. The rest is negative. PHYSICAL EXAMINATION: Mrs. Carrasco is a 61-year-old female who appears older than her calendar age. Vital signs: Blood pressure [address]5422, heart rate is 120s. It is atrial flutter. She has predominantly 2:1 conduction, but occasionally also 4:1 conduction. She is afebrile. Saturation is 94-95% on room air. Her jugular venous pressure is about 1 cm above clavicle. There is a port in her left subclavian vein. Lungs: Reasonably clear to auscultation on the left. I do not appreciate any wheezing or crackles, but on the right there are diminished breath sounds over lower lung aranda. Heart: Exam reveals irregular tachycardia. No gallop, rub or murmur is noted. Abdomen is soft. No tenderness or rebound tenderness. I do not appreciate any hepatosplenomegaly. Her lower extremities are free of edema. Peripheral pulses are palpable bilaterally. Neurologically, there is generalized weakness, but I do not appreciate any focal weakness as such. She certainly can talk appropriately, is alert and oriented and provides reasonably good history that is simultaneously filled in by her daughter. LABORATORY DATA: Basic metabolic panel: Potassium 3.8, BUN 35, creatinine 1.6, GFR 34. Lactic acid was 2.1, bilirubin 1.1, CK, CK-MB and troponin are negative. Albumin is 2.8, TSH 2.8 as well. Second set of cardiac enzymes have been negative as well. CBC reveals WBC count 16.7, hemoglobin 9.9, hematocrit 31.7 and platelet count 319,000. ECG reports atrial flutter with 2:1 conduction and is otherwise relatively unremarkable. Head CT performed in the emergency room reveals some minimal volume loss, but no evidence for metastatic disease. She had a chest CT performed yesterday that was performed without contrast revealing a mass in the right middle lobe which actually has grown compared to previous studies and appears to be adjacent to right heart border and pericardium with suggestion of potentially pericardial thickening and lymphadenopathy in the mediastinum. There are also changes consistent with COPD. ASSESSMENT/PLAN: Mrs. Carrasco is a 61-year-old female who has advanced lung cancer that has not been properly responding to chemotherapy. She now presents with atrial flutter that is relatively asymptomatic, but the rate is not well controlled. As far as the rate is concerned, I would agree with current administration of metoprolol 12.5 mg every 6 hours that can be titrated up depending on heart rate response, while holding for low blood pressure. As far as the anticoagulation is concerned, I am somewhat worried about possibility of metastatic involvement of the heart at which point there would be a higher risk of hemorrhagic conversion should she have pericardial involvement. Consequently I will order an echocardiogram and if no pericardial effusion or evidence for pericardial involvement is seen, then I would recommend full anticoagulation. Otherwise just deep venous thrombosis (DVT) prophylactic dose of heparin seems appropriate. Obviously her overall prognosis is poor. The management of hypercalcemia will remain with primary team. I had a fairly lengthy discussion with the patient and her daughter and even though I suggested that the prognosis is not favorable, I did not paint a fully grim picture.
[2017-07-10] MEDS: SYMBICORT 160/4.5MCG INHALER 6GM INH SCH (21:00)
[2017-07-10] MEDS: HEPARIN SOD (PORCINE) 5000 UNITS/ML VIAL SC SCH (21:44)
[2017-07-11] VITALS (10 sets, daily range): BP systolic 88–122; BP diastolic 54–78
[2017-07-11] MEDS ORDERED: NS 500 ML IV ONE
[2017-07-11] MEDS: ALBUTEROL SULFATE 2.5 MG/0.5 ML INH NEB SOLN INH PRN (02:14)
[2017-07-11] MEDS: NS 1,000 ML IV SCH ×3 (02:32→21:45)
[2017-07-11 05:56] LABS: BASO % 0.1 % (0.0-1.0); IMMATURE GRANULOCYTE % 2.3 % (0-0); LYMPH # 0.8 10^3/uL (1.5-4.5); LYMPH % 7.9 % (24.0-44.0); MEAN CORPUSCULAR HEMOGLOBIN 27.1 pg (27.0-33.0); MEAN CORPUSCULAR VOLUME 87.6 fl (80.0-96.0); MONO # 0.7 10^3/uL (0.0-0.8); MONO % 6.6 % (0.0-5.0); NEUTROPHILS # 8.3 10^3/uL (1.8-7.7); NEUTROPHILS % 83.1 % (36.0-66.0)
[2017-07-11] MEDS: AZTREONAM 1 GM in D5W 50 ML IV SCH ×2 (05:57→16:55)
[2017-07-11] MEDS: METOPROLOL TART 12.5 MG PER 1/2 TAB PO SCH ×3 (05:58→12:00)
[2017-07-11] MEDS: HEPARIN SOD (PORCINE) 5000 UNITS/ML VIAL SC SCH ×3 (06:00→21:42)
[2017-07-11 06:06] LABS: PLATELET COUNT, AUTOMATED 218 10^3/uL (150-450)
[2017-07-11 06:16] LABS: CALCIUM LEVEL 12.6 MG/DL (8.8-10.2); CREATININE FOR GFR 1.41 MG/DL (0.55-1.02); GLOMERULAR FILTRATION RATE 40.2 (>45); POTASSIUM SERUM 4.1 MEQ/L (3.5-5.1)
[2017-07-11] MEDS: VITAMIN D 1,000 INTERNATIONAL UNITS TABLET PO SCH (08:06)
[2017-07-11] MEDS: MULTIVITAMINS/MINERALS THERAP 1 TAB PO SCH (08:06)
--- NOTE | 2017-07-11 08:17 | ECGEPIP ---
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
[2017-07-11] MEDS: SYMBICORT 160/4.5MCG INHALER 6GM INH SCH ×2 (08:33→19:46)
[2017-07-11] MEDS ORDERED: ALTEPLASE 2 MG/2 ML VIAL (J2997 PER 1MG) XX ONE ×2 (10:30→14:00)
[2017-07-11] MEDS ORDERED: DIGOXIN 0.25 MG TAB PO ONE (12:30)
--- NOTE | 2017-07-11 12:32 | IPN ---
DATE: 07/11/2017 TIME: 12:18 p.m. SUBJECTIVE: Patient is not bothered by any palpitations. No chest pain or chest discomfort. No lightheadedness or dizziness. She is not aware of any palpitations. PHYSICAL EXAMINATION: Temperature 97.3, pulse 100 (irregularly irregular), respiratory rate 16, blood pressure 88/60, oxygen saturation 94% on room air, height 64 inches, body mass index (BMI) 21.4. Jugular venous pulsations were at 2 cm with FF waves. First and second heart sounds are variable in intensity. A Port-a-Cath was present over the left pectoral region. Variable heart S1 and S2. No S3 or murmurs. Respiratory expansion effort was fair. No crackles or wheezes. No lower extremity edema. Mood and affect was normal. Speech was normal. Laboratory work 07/11/2017 shows sodium 134, potassium 4.1, chloride 104, CO2 21, creatinine 1.41, estimated 40.2, glucose 175, calcium 12.6. ASSESSMENT/PLAN: 1. Atrial flutter with variable AV conduction (typical atrial flutter) with mildly rapid response. Asymptomatic. Unfortunately, the patient is running frequent hypotension, blood pressure readings and this is going to limit use of a beta-opal or use of a non-dihydropyridine calcium channel opal for heart rate control. I will discontinue the metoprolol tartrate 12.5 mg every 6 hours and use digoxin. Digoxin will need to be adjusted to take into account the degree of renal dysfunction. I agree with Dr. Chiang's assessment with regards to anticoagulation that he outlined in his consultation report. Awaiting results of the echocardiogram Doppler. 2. Hypotension. As noted above, I will discontinue the metoprolol tartrate.
--- NOTE | 2017-07-11 15:35 | IPNPDOC ---
Subjective Date Seen The patient was seen on 07/11/17. Subjective Chief Complaint/HPI The patient is a 61-year-old female admitted with a reason for visit of Hypercalcemia,Uti. Events since last encounter Ms. Carrasco reports she is feeling a little better today, although she is still feeling quite tired. Her blood pressure has been running quite low and this has been limiting the use of beta opal to control her heart rate. Dr. Nieves Is seeing her for this and has made adjustments to her regimen including stopping metoprolol and starting digoxin. General: Reports: Fatigue Constitutional: Denies: Fever Pulmonary: Denies: Cough Cardiovascular: Denies: Chest Pain, Palpitations Objective Physical Examination General Exam: Positive: No Acute Distress Eye Exam: Positive: Conjunctiva & lids normal, Negative: Sclera icteric ENT Exam: Positive: Mucous membr. moist/pink Neck Exam: Negative: Lymphadenopathy Chest Exam: Positive: Clear to auscultation, Normal air movement Heart Exam: Positive: Irregular Rhythm Abdomen Exam: Positive: Normal bowel sounds, Soft, Negative: Tenderness Extremity Exam: Negative: Edema Psych Exam: Positive: Mood NL Assessment /Plan Problems (1) UTI (urinary tract infection) Status: Acute Problem Text: Urine culture is still pending. Will continue her on empiric IV azotemia. (2) Atrial flutter Status: Acute Response to Treatment: Uncontrolled Problem Specific Plan: Consult Specialist Problem Text: Unfortunately she continues to be hypotensive and is therefore missing doses of her metoprolol. Dr. Nieves just changed her off of metoprolol and onto digoxin. Will monitor and I'll defer further changes to him. (3) Hypercalcemia Status: Acute Response to Treatment: Improving Problem Text: Her calcium is down to 12.6 today. She did receive a one time dose of pamidronate yesterday. I strongly suspect this is related to her neoplastic disease. We'll continue to track her calcium levels, and I ordered an ionized calcium for tomorrow as well. (4) Acute renal failure superimposed on stage 3 chronic kidney disease Status: Acute Response to Treatment: Improving Problem Text: Her creatinine is down from 1.61 to 1.41 today. She is on normal saline at 100 mL an hour. We'll continue to monitor. 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 Nonetheless nothing specific is needed to treat this problem during this particular admission. Her oncologist , Dr. Paul, remains available to us by telephone if needed. Plan/VTE VTE Prophylaxis Ordered?: Yes (subcutaneous heparin) VS, I&O, 24H, Fishbone Vital Signs/I&O Vital Signs Date Time Temp Pulse Resp B/P (MAP) Pulse Ox O2 Delivery O2 Flow Rate FiO2 07/11/17 14:00 110 18 98/60 (73) 96 Room Air 07/11/17 12:00 97.1 I&O- Last 24 Hours up to 6 AM 07/12/17 06:00 Intake Total 420 ml Output Total 675 ml Balance -255 ml Laboratory Data 24H LABS Laboratory Tests 2 07/10/17 16:58: Lactic Acid Level 2.2*H, Total Creatine Kinase 20L, Creatine Kinase MB 1.0, Creatine Kinase MB Relative Index 5.00H, Troponin I < 0.02 07/10/17 21:39: Lactic Acid Followup at 4 Hours 1.8 07/11/17 02:40: Total Creatine Kinase 20L, Creatine Kinase MB 1.3, Creatine Kinase MB Relative Index 6.50H, Troponin I < 0.02 07/11/17 05:40: White Blood Count 10.0, Red Blood Count 3.06L, Hemoglobin 8.3L, Hematocrit 26.8L , Mean Corpuscular Volume 87.6, Mean Corpuscular Hemoglobin 27.1, Mean Corpuscular Hemoglobin Concent 31.0L, Red Cell Distribution Width 16.0H, Platelet Count 218#, Neutrophils (%) (Auto) 83.1H, Lymphocytes (%) (Auto) 7.9L, Monocytes (%) (Auto) 6.6H, Eosinophils (%) (Auto) 0.0, Basophils (%) (Auto) 0.1 , Neutrophils # (Auto) 8.3H, Lymphocytes # (Auto) 0.8L, Monocytes # (Auto) 0.7, Eosinophils # (Auto) 0.0, Basophils # (Auto) 0.0, Immature Granulocyte # (Auto) 0.2H, Nucleated Red Blood Cells % (auto) 0.0, Anion Gap 9, Glomerular Filtration Rate 40.2L, Blood Urea Nitrogen 36H, Creatinine 1.41H, Sodium Level 134L, Potassium Level 4.1, Chloride Level 104, Carbon Dioxide Level 21, Calcium Level 12.6H, Magnesium Level 2.0 07/11/17 09:56: Total Creatine Kinase 22L, Creatine Kinase MB 1.9, Creatine Kinase MB Relative Index 8.63H, Troponin I < 0.02 CBC/BMP Laboratory Tests 07/11/17 05:40 Red Blood Count 3.06 L, Mean Corpuscular Volume 87.6, Mean Corpuscular Hemoglobin 27.1, Mean Corpuscular Hemoglobin Concent 31.0 L, Red Cell Distribution Width 16.0 H, Neutrophils (%) (Auto) 83.1 H, Lymphocytes (%) (Auto ) 7.9 L, Monocytes (%) (Auto) 6.6 H, Eosinophils (%) (Auto) 0.0, Basophils (%) ( Auto) 0.1, Neutrophils # (Auto) 8.3 H, Lymphocytes # (Auto) 0.8 L, Monocytes # ( Auto) 0.7, Eosinophils # (Auto) 0.0, Basophils # (Auto) 0.0, Calcium Level 12.6 H Microbiology Microbiology 07/10/17 Blood Culture - Preliminary, Resulted No growth after 24 hours . All specim... 07/10/17 Blood Culture - Preliminary, Resulted No growth after 24 hours . All specim... 07/10/17 Urine Culture, Received Pending Kirit Steward MD Jul 11, 2017 15:35
[2017-07-11] MEDS ORDERED: DIGOXIN INJ 0.5 MG/2 ML AMP (J1160) IV ONE (20:30)
[2017-07-12] VITALS (8 sets, daily range): BP systolic 90–110; BP diastolic 58–70
[2017-07-12] MEDS: AZTREONAM 1 GM in D5W 50 ML IV SCH ×2 (05:11→16:51)
[2017-07-12] MEDS: HEPARIN SOD (PORCINE) 5000 UNITS/ML VIAL SC SCH ×3 (05:11→22:29)
[2017-07-12 05:25] LABS: MEAN CORPUSCULAR HEMOGLOBIN 26.5 pg (27.0-33.0); MEAN CORPUSCULAR HGB CONC 30.2 g/dl (32.0-36.5); MEAN CORPUSCULAR VOLUME 87.5 fl (80.0-96.0); PLATELET COUNT, AUTOMATED 261 10^3/uL (150-450); RED CELL DISTRIBUTION WIDTH 16.4 % (11.5-14.5); WHITE BLOOD COUNT 15.9 10^3/uL (4.0-10.0)
[2017-07-12 05:35] LABS: ADD MANUAL DIFFER YES; DIFF SLIDE NUMBER 64
[2017-07-12 05:45] LABS: CALCIUM LEVEL 10.6 MG/DL (8.8-10.2); CREATININE FOR GFR 1.26 MG/DL (0.55-1.02); GLOMERULAR FILTRATION RATE 45.8 (>45); MAGNESIUM LEVEL 1.8 MG/DL (1.8-2.4); POTASSIUM SERUM 3.9 MEQ/L (3.5-5.1)
[2017-07-12 06:43] LABS: ANISOCYTOSIS 1+; BANDS 1 % (< 11)
[2017-07-12] MEDS: SYMBICORT 160/4.5MCG INHALER 6GM INH SCH ×2 (07:28→19:39)
--- NOTE | 2017-07-12 07:45 | ECHO ---
DATE OF PROCEDURE: 07/11/2017 REFERRING PHYSICIAN: Dr. Deja Bueno. INDICATION: Atrial flutter. HEIGHT: 163 cm. WEIGHT: 57 kg. 2D MEASUREMENTS: Aortic root: 2.9 cm Left atrium: 4.0 cm Ventricular septum: 1.19 cm Posterior wall: 1.23 cm Left ventricle diastole: 4.4 cm LVOT: 2.1 cm Inferior vena cava: 1.8 cm DOPPLER MEASUREMENTS: Aortic valve velocity: 116 cm/s LVOT velocity: 66.9 cm/s Mild mitral regurgitation. Moderate tricuspid regurgitation. Estimated right ventricular systolic pressure 45-50 mmHg assuming an atrial pressure of 10-15 mmHg. DESCRIPTION: Rhythm was typical atrial flutter with variable conduction ratio. Image quality was fair. This was a 2D, M-mode, color flow Doppler and pulsed wave Doppler examination. CONCLUSIONS: 1. Presence of a large mass partially invaginating into the superior roof of the right atrium but not causing obstruction of flow within the right atrium. This mass appears to be extrinsic to the heart itself. 2. Low density mass over the apex of the heart especially at the junction of the right atrium and right ventricle but more involving the right ventricle which most likely represents a prominent epicardial fat pad but differential would include infiltrative tumor and perhaps hematoma. 3. Very small pericardial effusion. 4. Normal left ventricle internal dimensions and wall thickness. Normal regional LV wall motion and wall thickening. Normal LV systolic function. LVEF 60% by visual estimate. 5. Mild left atrial dilatation. 6. Suggestive of moderate elevation of estimated right ventricle systolic pressure. Moderate tricuspid regurgitation.
[2017-07-12] MEDS: MULTIVITAMINS/MINERALS THERAP 1 TAB PO SCH (08:31)
[2017-07-12] MEDS: DIGOXIN 0.125 MG TAB PO SCH (08:31)
[2017-07-12] MEDS: VITAMIN D 1,000 INTERNATIONAL UNITS TABLET PO SCH (08:31)
[2017-07-12] MEDS: NS 1,000 ML IV SCH ×3 (08:32→23:35)
[2017-07-12] MEDS ORDERED: DIGOXIN 0.25 MG TAB PO ONE (11:00)
--- NOTE | 2017-07-12 22:40 | IPNPDOC ---
Subjective Date Seen The patient was seen on 07/12/17. Subjective Chief Complaint/HPI The patient is a 61-year-old female admitted with a reason for visit of Hypercalcemia,Uti. Events since last encounter She reports she was up and walked around a little bit today, but this made her pretty tired. She has started to have some low-grade fevers. Her urine culture returned Escherichia coli which is sensitive to the aztreonam she is receiving, although the sensitivity indicates a 1 g every 8 dose rather than a 1 g every 12 dose would be better. General: Reports: Fatigue Constitutional: Reports: Fever Pulmonary: Denies: Dyspnea, Cough Cardiovascular: Denies: Chest Pain, Palpitations Gastrointestinal: Denies: Nausea Objective Physical Examination General Exam: Positive: No Acute Distress Eye Exam: Positive: Conjunctiva & lids normal, Negative: Sclera icteric ENT Exam: Positive: Mucous membr. moist/pink Neck Exam: Negative: Lymphadenopathy Chest Exam: Positive: Clear to auscultation, Normal air movement Heart Exam: Positive: Irregular Rhythm Abdomen Exam: Positive: Normal bowel sounds, Soft, Negative: Tenderness Extremity Exam: Negative: Edema Psych Exam: Positive: Mood NL Assessment /Plan Problems (1) UTI (urinary tract infection) Status: Acute Problem Text: Her renal function is improving. I will change her IV aztreonam to every 8 hours. This Escherichia coli is also sensitive to Bactrim, which may be a reasonable idea to change her to, but only after her renal function rebounds completely. (2) Atrial flutter Status: Acute Response to Treatment: Uncontrolled Problem Specific Plan: Consult Specialist Problem Text: The digoxin seems to be working reasonably well to control her a flutter, unfortunately she had a 4 second pause today as well. Doctor Ezequiel was consulted and has changed her digoxin to every other day. I'll defer further management of this to him. (3) Acute renal failure superimposed on stage 3 chronic kidney disease Status: Acute Response to Treatment: Improving Problem Text: Her creatinine continues to improve, but her pressures also continue to be softer today despite the change from metoprolol to digoxin yesterday. I changed her IV fluid rate from 100 to 150 mL an hour. She has no signs of fluid overload and a recent echocardiogram shows an LVEF of 60%. I'll continue her at this increased rate but will continue to monitor her carefully for signs of fluid overload. (4) Hypercalcemia Status: Acute Response to Treatment: Improving Problem Text: Her calcium is down again to 10.6 today. Her ionized calcium is unsurprisingly elevated at 6.3. As long as her calcium continues to trend in the right direction we will continue to monitor. I do strongly believe that the hypercalcemia is related to her cancer. 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 Nonetheless nothing specific is needed to treat this problem during this particular admission. Her oncologist , Dr. Paul, remains available to us by telephone if needed. Plan/VTE VTE Prophylaxis Ordered?: Yes (subcutaneous heparin, SCDs + TEDS) VS, I&O, 24H, Fishbone Vital Signs/I&O Vital Signs Date Time Temp Pulse Resp B/P (MAP) Pulse Ox O2 Delivery O2 Flow Rate FiO2 07/12/17 20:00 100.4 102 24 110/70 (83) 94 Room Air I&O- Last 24 Hours up to 6 AM 07/13/17 06:00 Intake Total 1870 ml Output Total 950 ml Balance 920 ml Laboratory Data 24H LABS Laboratory Tests 2 07/12/17 05:05: Neutrophils 90H, Band Neutrophils 1, Lymphocytes (Manual) 6L, Monocytes (Manual ) 3, Platelet Estimate NORMAL, Anisocytosis 1+, Anion Gap 9, Glomerular Filtration Rate 45.8, Blood Urea Nitrogen 29H, Creatinine 1.26H, Sodium Level 141#, Potassium Level 3.9, Chloride Level 112H, Carbon Dioxide Level 20L, Calcium Level 10.6#H, Whole Blood Ionized Calcium 6.3*H, Magnesium Level 1.8 07/12/17 09:19: Lactic Acid Level 2.0 CBC/BMP Laboratory Tests 07/12/17 05:05 Red Blood Count 3.21 L, Mean Corpuscular Volume 87.5, Mean Corpuscular Hemoglobin 26.5 L, Mean Corpuscular Hemoglobin Concent 30.2 L, Red Cell Distribution Width 16.4 H, Calcium Level 10.6 #H Microbiology Microbiology 07/10/17 Blood Culture - Preliminary, Resulted No Growth after 48 hours. All Specime... 07/10/17 Blood Culture - Preliminary, Resulted No Growth after 48 hours. All Specime... 07/10/17 Urine Culture - Final, Complete Escherichia Coli Kirit Steward MD Jul 12, 2017 22:40
[2017-07-13] VITALS: BP 137/73
[2017-07-13] MEDS: AZTREONAM 1 GM in D5W 50 ML IV SCH ×3 (00:17→17:42)
[2017-07-13] MEDS: ACETAMINOPHEN TAB 650MG DOSE (2X325MG) PO PRN (00:17)
[2017-07-13 04:00] VITALS: BP 92/58
[2017-07-13] MEDS: HEPARIN SOD (PORCINE) 5000 UNITS/ML VIAL SC SCH ×3 (05:32→22:40)
[2017-07-13 05:44] LABS: BASO % 0.2 % (0.0-1.0); EOS # 0.3 10^3/uL (0.0-0.50); EOS % 2.3 % (0.0-3.0); IMMATURE GRANULOCYTE % 1.9 % (0-0); LYMPH # 1.3 10^3/uL (1.5-4.5); LYMPH % 10.7 % (24.0-44.0); MEAN CORPUSCULAR HEMOGLOBIN 27.2 pg (27.0-33.0); MEAN CORPUSCULAR HGB CONC 30.6 g/dl (32.0-36.5); MEAN CORPUSCULAR VOLUME 88.8 fl (80.0-96.0); MONO # 0.9 10^3/uL (0.0-0.8); MONO % 7.4 % (0.0-5.0); NEUTROPHILS # 9.2 10^3/uL (1.8-7.7); NEUTROPHILS % 77.5 % (36.0-66.0); PLATELET COUNT, AUTOMATED 214 10^3/uL (150-450); WHITE BLOOD COUNT 11.8 10^3/uL (4.0-10.0)
[2017-07-13 06:11] LABS: ALBUMIN 1.9 GM/DL (3.2-5.2); ALBUMIN/GLOBULIN RATIO 0.54 (1.00-1.93); BILIRUBIN,TOTAL 0.5 MG/DL (0.2-1.0); CALCIUM LEVEL 9.4 MG/DL (8.8-10.2); CREATININE FOR GFR 1.1 MG/DL (0.55-1.02); GLOMERULAR FILTRATION RATE 53.6 (>45); POTASSIUM SERUM 3.7 MEQ/L (3.5-5.1); TOTAL PROTEIN 5.4 GM/DL (6.4-8.2)
[2017-07-13] MEDS: NS 1,000 ML IV SCH ×4 (06:33→22:43)
[2017-07-13] MEDS: ALBUTEROL SULFATE 2.5 MG/0.5 ML INH NEB SOLN INH PRN (06:57)
[2017-07-13 08:00] VITALS: BP 95/60
[2017-07-13] MEDS ORDERED: ISOVUE-370 76% 100ML VIAL (Q9967) As Ordered ONE ×2 (08:01→13:37)
--- NOTE | 2017-07-13 08:03 | IPN ---
DATE: 07/13/2017 Mrs. Carrasco was feeling short of breath when I saw her. She feels that she is wheezing more than she did yesterday. She denies any chest pain. She denies any dizzy feeling. She tells me that she has some chills last night. Vital Signs: Blood pressure this morning was documented 92/58. Heart rate has been in 60s. T-max last night was 101.3. Saturation is 90-94% on room air. Fluid balance yesterday was about 1800 positive. Weight is documented at 63.8 cm. Her jugular venous pulse (JVP) is very high, at least 15 cm. You can see her jugular veins as thick cords on both sides of her neck. Her lungs reveal diminished sounds over the right base and wheezing above. Heart exam reveals rather muffled heart sounds, but it is irregularly irregular rhythm. I do not appreciate any rub as such. Abdomen is soft, nontender. There is no edema. Neurologically, she is alert and oriented and otherwise intact. CBC: Hemoglobin is 8.5, hematocrit 27.8 and platelet count 240,000. WBC count is 11.8. Basic metabolic panel: Potassium 3.7, BUN 27, creatinine 1.1, glucose 90, calcium is down 9.4 and albumin is 1.9. Review of telemetry tracing from yesterday reveals variable degree of control over her atrial flutter. When I approached the room, she was sleeping and her heart rate was in the 70s, but after she was woken up and I talked to her, it went up again to 2:1 conduction and ventricular rate of approximately 140. ASSESSMENT/PLAN: Mrs. 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 She came on Thursday because she was sent by her oncologist, but she was simultaneously found to be hypercalcemic and she had atrial flutter with 2:1 conduction. As far as the atrial flutter is concerned, I am not overly concerned. She is asymptomatic from this perspective and it is almost certainly a consequence of her cancer invading the pericardium. The echocardiogram did reveal external compression of the right atrium and there was also some tissue in the pericardium that according to Dr. Nieves could have represented pericardial fat pad, but also possibly tumor or hematoma. At this point, I am particularly worried about her JVP being dramatically higher than it was on Thursday. I suspect that she is either indeed having significant pericardial involvement or potentially even compression of the superior vena cava. I suspect that something will need to be done relatively urgently or the discussion has to be made about comfort care. I spoke with Dr. Chirinos who is the covering physician today. I believe that CT angiography or at least a plain CT of the chest should be our next step to get a better idea about the possible change of the anatomy since just four days ago. Further management should stem from there. As far as atrial flutter is concerned, I am not going to make any adjustment. The dose of digoxin was changed to every other day and even if she is tachycardiac for the time being I would not pursue any specific intervention in that matter. MTDD
--- NOTE | 2017-07-13 08:12 | IPNPDOC ---
Subjective Date Seen The patient was seen on 07/13/17. Subjective Chief Complaint/HPI The patient is a 61-year-old female admitted with a reason for visit of Hypercalcemia,Uti. Events since last encounter Pt states she feels about the same. Denies any current SOB. Denies CP, Abd pain. Fever during night with Tmax 101.3. Pulmonary: Denies: Dyspnea Cardiovascular: Denies: Chest Pain Gastrointestinal: Denies: Abdominal Pain Objective Physical Examination General Exam: Positive: No Acute Distress Eye Exam: Positive: Conjunctiva & lids normal, Negative: Sclera icteric ENT Exam: Positive: Mucous membr. moist/pink Neck Exam: Positive: JVD (up to ears B/L), Negative: Lymphadenopathy Chest Exam: Positive: Clear to auscultation, Normal air movement Heart Exam: Positive: Irregular Rhythm Abdomen Exam: Positive: Normal bowel sounds, Soft, Negative: Tenderness Extremity Exam: Negative: Edema Psych Exam: Positive: Mood NL Assessment /Plan Problems (1) JVD (jugular venous distension) Status: Acute Problem Specific Plan: Consult Specialist, Monitor Clinically Problem Text: 07/13 - Increased JVD. ? superior cava syndrome. Order STAT CT Angio Chest. Consult Dr Moore. (2) Atrial flutter Status: Acute Response to Treatment: Uncontrolled Problem Specific Plan: Consult Specialist Problem Text: 07/13 - Cardiology following. On Digoxin. 07/12 - The digoxin seems to be working reasonably well to control her a flutter , unfortunately she had a 4 second pause today as well. Doctor Ezequiel was consulted and has changed her digoxin to every other day. I'll defer further management of this to him. (3) UTI (urinary tract infection) Status: Acute Problem Text: 07/13 - On IV aztreonam q 8 hours. Fever during the night. Currently afebrile. 07/12 - Her renal function is improving. I will change her IV aztreonam to every 8 hours. This Escherichia coli is also sensitive to Bactrim, which may be a reasonable idea to change her to, but only after her renal function rebounds completely. (4) Acute renal failure superimposed on stage 3 chronic kidney disease Status: Acute Response to Treatment: Improving Problem Text: 07/13 - Creatinine has been trending down. 1.10 today. On IVF. Monitor. 07/12 - Her creatinine continues to improve, but her pressures also continue to be softer today despite the change from metoprolol to digoxin yesterday. I changed her IV fluid rate from 100 to 150 mL an hour. She has no signs of fluid overload and a recent echocardiogram shows an LVEF of 60%. I'll continue her at this increased rate but will continue to monitor her carefully for signs of fluid overload. (5) Hypercalcemia Status: Acute Response to Treatment: Improving Problem Text: 07/13 - Calcium trending down and is 9.4 today. 07/12 - Her calcium is down again to 10.6 today. Her ionized calcium is unsurprisingly elevated at 6.3. As long as her calcium continues to trend in the right direction we will continue to monitor. I do strongly believe that the hypercalcemia is related to her cancer. 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 Nonetheless nothing specific is needed to treat this problem during this particular admission. Her oncologist , Dr. Paul, remains available to us by telephone if needed. Plan/VTE VTE Prophylaxis Ordered?: Yes (subcutaneous heparin, SCDs + TEDS) VS, I&O, 24H, Fishbone Vital Signs/I&O Vital Signs Date Time Temp Pulse Resp B/P (MAP) Pulse Ox O2 Delivery O2 Flow Rate FiO2 07/13/17 04:00 97.1 66 24 92/58 (69) 90 Room Air Laboratory Data 24H LABS Laboratory Tests 2 07/12/17 09:19: Lactic Acid Level 2.0 07/13/17 05:31: Immature Granulocyte % (Auto) 1.9H, White Blood Count 11.8H, Red Blood Count 3.13L, Hemoglobin 8.5L, Hematocrit 27.8L, Mean Corpuscular Volume 88.8, Mean Corpuscular Hemoglobin 27.2, Mean Corpuscular Hemoglobin Concent 30.6L, Red Cell Distribution Width 17.0H, Platelet Count 214, Neutrophils (%) (Auto) 77.5H , Lymphocytes (%) (Auto) 10.7L, Monocytes (%) (Auto) 7.4H, Eosinophils (%) (Auto ) 2.3, Basophils (%) (Auto) 0.2, Neutrophils # (Auto) 9.2H, Lymphocytes # (Auto ) 1.3L, Monocytes # (Auto) 0.9H, Eosinophils # (Auto) 0.3, Basophils # (Auto) 0.0, Immature Granulocyte # (Auto) 0.2H, Nucleated Red Blood Cells % (auto) 0.0 , Anion Gap 7L, Glomerular Filtration Rate 53.6, Blood Urea Nitrogen 27H, Creatinine 1.10H, Sodium Level 140, Potassium Level 3.7, Chloride Level 113H, Carbon Dioxide Level 20L, Calcium Level 9.4, Aspartate Amino Transf (AST/SGOT) 16, Alanine Aminotransferase (ALT/SGPT) 38, Alkaline Phosphatase 149H, Total Bilirubin 0.5#, Total Protein 5.4#L, Albumin 1.9#L, Albumin/Globulin Ratio 0.54L CBC/BMP Laboratory Tests 07/13/17 05:31 Red Blood Count 3.13 L, Mean Corpuscular Volume 88.8, Mean Corpuscular Hemoglobin 27.2, Mean Corpuscular Hemoglobin Concent 30.6 L, Red Cell Distribution Width 17.0 H, Neutrophils (%) (Auto) 77.5 H, Lymphocytes (%) (Auto ) 10.7 L, Monocytes (%) (Auto) 7.4 H, Eosinophils (%) (Auto) 2.3, Basophils (%) (Auto) 0.2, Neutrophils # (Auto) 9.2 H, Lymphocytes # (Auto) 1.3 L, Monocytes # (Auto) 0.9 H, Eosinophils # (Auto) 0.3, Basophils # (Auto) 0.0, Calcium Level 9.4, Aspartate Amino Transf (AST/SGOT) 16, Alanine Aminotransferase (ALT/SGPT) 38, Alkaline Phosphatase 149 H, Total Bilirubin 0.5 #, Total Protein 5.4 #L, Albumin 1.9 #L Microbiology Microbiology 07/10/17 Blood Culture - Preliminary, Resulted No Growth after 48 hours. All Specime... 07/10/17 Blood Culture - Preliminary, Resulted No Growth after 48 hours. All Specime... 07/10/17 Urine Culture - Final, Complete Escherichia Coli Fernando Martinez RPA-C Jul 13, 2017 08:12
[2017-07-13] MEDS: SYMBICORT 160/4.5MCG INHALER 6GM INH SCH ×2 (08:36→19:17)
[2017-07-13] MEDS: SODIUM CHLORIDE 0.9% INJ 10 ML SYR IV SCH (09:00)
[2017-07-13] MEDS: VITAMIN D 1,000 INTERNATIONAL UNITS TABLET PO SCH (09:04)
[2017-07-13] MEDS: MULTIVITAMINS/MINERALS THERAP 1 TAB PO SCH (09:04)
[2017-07-13] MEDS: DIGOXIN 0.125 MG TAB PO SCH (09:04)
[2017-07-13 09:17] LABS: DIGOXIN LEVEL 1.4 NG/ML (0.5-2.0)
--- NOTE | 2017-07-13 10:35 | IPN ---
DATE: 07/13/2017 I spent a significant amount of time this morning coordinating for Meagan Patterson who has developed significant jugular venous distention, sytolic hypotension and edema of her arms. Concern is she might have severe vena cava syndrome or developed Helicobacter (H) pylori pericardial tamponade from her metastatic squamous cell carcinoma. The case was discussed with Dr. Chiang this morning and then Dr. Moore, who was consulted. Plan was for a stat CT angiogram of the chest. Patient had a previous rash lower extremities on intravenous (IV) contrast and is refusing the CT with contrast. She wanted her daughter to come in. Daughter came in and we answered any many questions that I could. Many of these need to be answered by her oncologist. The patient did express thought "enough is enough" earlier this morning and I want her to have a chance to decide how aggressively she wants us to be working up this problem. After spending time reviewing the case, the patient's medication list and lab results with the daughter we decided to proceed with a CT scan of the chest without IV contrast understanding it is significantly limiting our ability to determine what is going on and she could have a life threatening condition that we have had now approximately 3 hours of delay since the initial evaluation occurred. She is willing to accept the risk of this. She would like to speak with Dr. Barrientos and I have a call in for her to return my call. Perhaps, she could come over and speak with the patient as well. At this point, we are essentially on hold getting a CT scan of the chest without contrast. I am waiting to hear back from oncology and for the patient to decide whether she will consent to IV contrast. She understands she would be premedicated with Solu-Medrol and Benadryl, but it does have a risk allergic reaction including anaphylaxis.
--- NOTE | 2017-07-13 11:12 | REP ---
CT of the chest without IV contrast: Reportedly the patient declined intravenous contrast. Comparisons are 05/22/2017 with intravenous contrast and 07/09/2017 without intravenous contrast. The patient has known lung carcinoma with a right middle lobe lung mass and right hilar and mediastinal adenopathy. These are unchanged. There are bilateral pleural effusions. the right pleural effusion is slightly larger than on the comparison studies. The left pleural effusion appears to be new. There is extensive bullous replacement of lung parenchyma, particularly in the upper lobes. This is unchanged from the prior studies. The the patient has an indwelling [id number] catheter entering from a left subclavian approach with the tip terminating satisfactorily in the superior vena cava, not present on 05/22/2017 but unchanged from a and 07/09 2017. The superior vena cava is distended. This is similar appearance to 07/09/2017. The superior vena cava was not distended on 05/22/2017. 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 Bilateral pleural effusions as described. Right middle lobe lung mass, mediastinal and right hilar adenopathy. Bullous emphysema. Large left renal cyst, unchanged. Signed by London Coello MD 07/13/2017 11:03 A
[2017-07-13 12:00] VITALS: BP 106/68
[2017-07-13] MEDS ORDERED: methylPREDNISolone INJ 125 MG/2 ML VIAL (J2930) IV ONE (12:30)
[2017-07-13] MEDS ORDERED: diphenhydrAMINE INJ 50MG/ML VIAL (J1200) IV ONE (12:30)
--- NOTE | 2017-07-13 13:50 | CR ---
MEDICAL ONCOLOGY INPATIENT CONSULT DATE OF SERVICE: 07/13/2017 Nilesh Chirinos MD requested medical oncology consult regarding new SVC syndrome in patient with known stage IIIB squamous cell carcinoma of the lung. 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 She was initially treated with gemcitabine and cisplatin. However, after one cycle she developed grade 3 tinnitus and was converted to second line treatment with pembrolizumab (Keytruda ) which she began 05/28/2017. She completed her second cycle 06/17/2017. Last week she presented with new malaise found to be hypotensive and was given initial IV fluid bolus with cultures taken. Urine culture was positive for E-coli. Her hypotension only minimally responded to IV fluids and she developed hypercalcemia. She was sent to the hospital where she was admitted, treated with antibiotics and pamidronate. During admission CT of the chest without contrast suggests SVC syndrome, particularly in light of developing new JVD and upper extremity swelling as of yesterday. She had refused IV contrast and the mediastinal visualization is somewhat limited. In the interval since this morning and my seeing the patient at the bedside at noontime, Dr. Baptiste of radiation oncology has also seen the patient as has Dr. Moore of thoracic oncology. Dr. Moore opines the symptoms of JVD and upper extremity congestion referred to pericardial tumor involvement rather than SVC compression. Contrast CT is being done to further characterize this. If extrinsic SVC compression is the cause of the patient's current signs and symptoms, palliative radiation could be administered for immediate and short- term relief. If, pericardial tumoral involvement is the primary cause of the patient's hypotension, JVD, and upper extremity edema, radiation would not be palliative. I have talked to Arlet about palliative chemotherapy, checked in with our chemotherapy nurse, Nita Burden, who is likely to be available beginning Thursday to give inpatient chemotherapy. This would be a palliative, salvage maneuver. This patient has incurable unresectable stage III advanced non-small cell lung carcinoma not a candidate for definitive chemoradiation. At the bedside Arlet is accompanied by her daughter, Sonia. She is somewhat drawn but appears stronger than in the office on Thursday. She is reviewing hospice folders. She expresses confusion about what she should do. I reviewed with her the issue of extrinsic heart vessel compression versus intrinsic pericardial involvement with tumor and outlined palliative options which include as noted above, radiation or chemotherapy or in the immediate term even hospice. Unfortunately, it is clear from the CTs that pericardial involvement has rapidly progressed between May and June. Accompanying this was hypercalcemia, currently under control following pamidronate, but overall boding ill with disease progression despite highly effective treatment. IMPRESSION: Locally advanced squamous cell carcinoma of lung with large right upper lobe mass, clinical SVC syndrome, new intra pericardial tumor involvement threatehing cardiac tamponade. ECOG performance status 2 to 3. PLAN: 1. Following this afternoon's IV contrast CT Dr. Baptiste and Dr. Moore will deliberate next steps. Dr. Moore is involved with helping interpret thoracic scans and clarifying the use of support for IV contrast. 2. If the patient is not a candidate for palliative radiation, I'll recommend palliative chemotherapy beginning Thursday with carboplatin and Taxol for short term disease control. Today at the bedside I discussed at length with Arlet and her daughter Sonia the overall poor prognosis for her life expectancy, that either chemotherapy or palliation are short and intermediate term solutions, her tumor is non-curable. However, if her pericardial disease can be quelled with chemotherapy and she is able to tolerate this, it is a reasonable palliative treatment approach that may be durable over months,enabling improved quality of life. This patient unfortunately is in the midst of profoundly challenging social circumstances which threaten her being removed from her place of living. Thanks for this consult, will follow. MARYD
[2017-07-13] MEDS: SODIUM CHLORIDE 0.9% INJ 10 ML SYR IV PRN (13:56)
--- NOTE | 2017-07-13 14:54 | REP ---
CT CHEST WITH IV CONTRAST: History: Adenocarcinoma the lung, question SVC syndrome. Comparison CT study is from earlier on this date done without IV contrast. Comparison chest CT study from July 09, [address] contrast dose: 75 mL of intravenous Isovue 370 is administered through the patient's power injectable [id number]. CT findings: There is extensive intrathoracic disease with a large mass in the right infrahilar region occupying the distribution of the right middle lobe as previously noted. This extends medially from the infrahilar region and is seen producing mass effect on the bladder wall of the right atrium. This CT study confirms the presence of moderate to severe narrowing of the superior vena cava at the SVC right atrial junction. There is enhancing bulky neoplastic mass both medial to and lateral to this portion of the proximal SVC. The SVC is mildly dilated above this and patent. No intraluminal thrombus is seen. Also noted is extensive and fairly bulky pericardial tumor nodularity with large enhancing pericardial nodule seen. The largest of these are seen anteriorly measuring 3.8 cm in medial to lateral by 1.8 cm anterior to posterior. This pericardial disease envelops much of the main pulmonary artery segment of the left heart border, over 180 degrees of its circumference on coronal re-formation images. The distribution of the left coronary artery which is partially calcified is totally surrounded by tumor. There is subcarinal adenopathy and some right hilar adenopathy. AP window region mediastinal lymphadenopathy is seen. There are scattered superior mediastinal lymph nodes. There is suspicious adenopathy in the left axilla. There is some subcutaneous edema in the axillary soft tissues bilaterally. Small bilateral pleural effusions are seen right greater than left. There is some passive congestion of the liver with periportal low density pattern. The intrahepatic segment of the inferior vena cava is mildly dilated at 2.9 cm. This may imply some right heart failure. No adrenal mass is seen on either side. No bony destructive lesion seen. Impression: Contrast enhanced chest CT study confirms the presence of significant compression of the proximal superior vena cava at the SVC right atrial junction. There is extensive pericardial tumor involvement. There is a large right hilar and infrahilar mass extending in the middle lobe distribution. Bilateral pleural effusions are seen. Signed by Kimo Dalton MD 07/13/2017 03:07 P
[2017-07-13 16:00] VITALS: BP 112/64
--- NOTE | 2017-07-13 18:14 | IPN ---
DATE: 07/13/2017 CT of the chest with contrast demonstrates both an extrinsic compression, SVC process and intrinsic, luminal pericardial tumor progression process. Meagan began palliative radiation today under Dr. Baptiste. I have recommended carboplatin/paclitaxel ("Taxol") chemotherapy given on a weekly basis concurrent with palliative radiation and to continue following completion of radiation. I just reviewed the risks, benefits, side effects, a schedule of this combination of chemotherapy with Arlet. Our chemotherapy nurse, Krissy White, is available so far to start treatment on Thursday. Treatment will be dosed as follows: - carboplatin AUC 2 - paclitaxel 45 mg/m2 Arlet has consented for following a discussion of the risks, benefits, and side effects to treatment with carboplatin and paclitaxel, to begin on Thursday, given on a weekly basis. This can continue outpatient following discharge. These are palliative efforts to reduce the symptoms from SVC syndrome and control pericardial involvement of her squamous cell carcinoma. We will continue to follow. MTDD
[2017-07-13 20:00] VITALS: BP 100/58
--- NOTE | 2017-07-13 21:20 | CR ---
DATE OF CONSULTATION: 07/13/2017 The patient was seen at the request of Dr. Chirinos for jugular venous distention and shortness of breath. The patient is a 61-year-old white female with extensive at least stage III squamous cell carcinoma of the right lower lobe, which extends into the mediastinum. She was found to have the mass in the middle of April when she went to the emergency room complaining of shortness of breath and a CT angio discovered the mass while looking for a pulmonary embolism. She then underwent biopsy, which showed her to have squamous cell carcinoma. Her medical illnesses include chronic obstructive pulmonary disease (COPD) with having smoked a pack of cigarettes for many years per day. Her pulmonary function test showed an FEV1 of 48% of predicted along with a diffusing capacity of 40% of predicted. She is in and out of atrial flutter, which seemed to be controlled after starting carboplatin-based chemotherapy. Late last month, on 07/10/2017, she was admitted with increasing lethargy and confusion. It was felt this might have represented metastases to her brain. She further had atrial flutter at that point in time. The patient was not able to tolerate [place]-based chemotherapy, and she was switched to Keytruda. She complains of dysequilibrium. In the last 24 hours, she has gotten more short of breath with minimal activity. She has a cough with some upper sioux sputum production. She does not complain of chest discomfort or chest pain. PAST MEDICAL HISTORY: COPD. Nicotine dependence. Anxiety and depression. Past history of shingles. Diverticulitis. PAST SURGERIES: Tubal ligation in 1985. Carpal tunnel release in 2007. Colonoscopies. ALLERGIES: ASPIRIN with hives, STRAWBERRIES with hives, TOMATOES with hives and INTRAVENOUS CONTRAST. MEDICATIONS AT HOME: - Symbicort 164.5 two puffs twice a day - multivitamins - Keytruda 100 mg IV every 2 weeks SOCIAL HISTORY: Has smoked one pack per day since the age of 14. She has one or two alcoholic beverages a month. OCCUPATIONAL HISTORY: She used to work for [employer] making [id number]. EXPOSURES: No exposures to tuberculosis. 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 However, she has been exposed to smoke. FAMILY HISTORY: Father of a stroke at the age of 85 secondary to pneumonia. Mother of breast cancer at age 78. REVIEW OF SYSTEMS: Has had weight loss but without fever, chills or night sweats. Eyes without diplopia, without amaurosis fugax, without prior jaundice. Mouth: Wears full upper and lower dentures. Nose: Without epistaxis. Ears: With tinnitus in the right ear. Cardiovascular: Without angina, chest pain or claudication, hypertension or peripheral edema. Without paroxysmal nocturnal dyspnea or orthopnea. Gastrointestinal: Has had prior diverticulitis but without abdominal pain, diarrhea, constipation, nausea, vomiting, hematemesis. Endocrine: Without diabetes or hypothyroidism. Psychiatric: Has anxieties and depression, without psychoses. PHYSICAL EXAMINATION: Today, she is a well-developed, well-nourished, very tired looking white female, looking older than her stated age. Her temperature was 101.3 at midnight and now 100.3 at 12 o'clock in the afternoon. Heart rate ranges between 92 and 115 in atrial flutter with a respiratory rate of 26 to 24 without the use of accessory muscles, who is 94% saturated on room air and whose blood pressure is ranging between 137/73 to 92/58. Head is Normocephalic. Eyes: Pupils equal, round and reactive to light. Extraocular motor intact. Sclerae nonicteric. Nose: Without deformity. Mouth: Has dentures in place. Mucous membranes are pink and moist. Lips and commissures without lesions. There is no thrush. Neck is supple. There is jugular venous distention past the angle of the jaw. I do not feel lymphadenopathy in the anterior cervical chain, but I do feel it in the left supraclavicular fossa. There is no thyromegaly. Trachea is midline. There is no subcutaneous emphysema. Lungs show normal vesicular sounds on both sides. She has some inspiratory rales on the right side in the mid lung field. Percussion note is full to the diaphragm. Cardiac exam is without murmurs, clicks, gallops or rubs. I cannot feel her point of maximum impulse (PMI). S1, S2 are normal. Abdomen is soft, nontender. Bowel sounds are positive. There is no hepatomegaly. No costovertebral angle tenderness. Extremities show no pretibial edema, no calf tenderness. No differential swelling of the upper extremities. Skin is warm, dry and perfused without cyanosis or mottling, including that of the nail beds and the knees. Neurologic: Shows II-XII intact along with gross motor and gross sensation intact. Gait is not tested. Psychiatric: Shows her to be awake and alert, oriented times three with appropriate mood and affect and conversational. INVESTIGATIONS: White count is 11.8 with a hemoglobin and hematocrit of 8.5 and 27.8 respectively. Platelet count is 214 and stable and differential shows 77% neutrophils, 10% lymphocytes, 4% monocytes. There are no immature forms. No toxic granulations. Her chemistries show essentially normal electrolytes with a marginally low total CO2 of 20. BUN and creatinine are 27 and 1.10, improved from 29 and 1.26 yesterday. Calcium is 9.4 with a corresponding albumin of 1.9 and a corrected calcium of 11.1, making her hypercalcemic. Because of her increased JVD and her hypotension, a CT scan was obtained. It was first supposed to be done with contrast, but the patient refused. The noncontrast CT showed possible narrowing of the superior vena cava (SVC) although that was a very soft call. She definitely had intrapericardial metastases. After discussing her with Dr. Baptiste, we both agreed that we need absolutely definitive information, and I spoke with the patient and she then underwent a CT scan with contrast. CT scan with contrast shows a narrowing of the SVC. It extends from approximately 2 cm past the innominate vein all the way to the right atrial appendage. The right atrium was compressed by the mass. The transverse section shows the intrapericardial metastases and, in fact, they fuse with the myocardium so that plane is lost and there is a question whether there is myocardial invasion from the pericardial studs. IMPRESSION: 1. Superior vena cava (SVC) syndrome. 2. Intrapericardial masses and metastases, most likely involving the myocardium. 3. Squamous cell carcinoma, biopsy proven. 4. Hypotension. 5. Jugular venous distention consistent with SVC syndrome. 6. Depression and anxiety. PLAN AND DISCUSSION: After finally having gotten all of the information, I have spoken with Dr. Barrientos and Dr. Baptiste. Dr. Baptiste is now undertaking the first round of treatment for radiation for SVC syndrome. Dr. Paul is going to consider starting chemotherapy on Thursday for the intrapericardial and now myocardial metastases. I have informed the patient that this does not augur well for her. I can not give her an actual time limit, but hospice would not be an unreasonable choice in the near future.
[2017-07-14] VITALS (7 sets, daily range): BP systolic 94–169; BP diastolic 50–99; O2SAT 95
[2017-07-14] MEDS: AZTREONAM 1 GM in D5W 50 ML IV SCH ×3 (00:34→16:06)
[2017-07-14] MEDS: NS 1,000 ML IV SCH ×4 (00:34→23:00)
[2017-07-14] MEDS: ALBUTEROL SULFATE 2.5 MG/0.5 ML INH NEB SOLN INH PRN ×2 (04:30→17:41)
[2017-07-14] MEDS: HEPARIN SOD (PORCINE) 5000 UNITS/ML VIAL SC SCH ×3 (05:12→21:13)
[2017-07-14 05:28] LABS: BASO % 0.1 % (0.0-1.0); IMMATURE GRANULOCYTE % 2.7 % (0-0); LYMPH # 0.8 10^3/uL (1.5-4.5); LYMPH % 6.5 % (24.0-44.0); MEAN CORPUSCULAR HEMOGLOBIN 26.9 pg (27.0-33.0); MEAN CORPUSCULAR HGB CONC 30.3 g/dl (32.0-36.5); MEAN CORPUSCULAR VOLUME 88.9 fl (80.0-96.0); MONO # 0.5 10^3/uL (0.0-0.8); NEUTROPHILS # 9.9 10^3/uL (1.8-7.7); NEUTROPHILS % 86.7 % (36.0-66.0); PLATELET COUNT, AUTOMATED 199 10^3/uL (150-450); WHITE BLOOD COUNT 11.5 10^3/uL (4.0-10.0)
[2017-07-14 05:50] LABS: ANION GAP 9 MEQ/L (8-16); BLOOD UREA NITROGEN 25 MG/DL (7-18); CALCIUM LEVEL 8.9 MG/DL (8.8-10.2); CARBON DIOXIDE LEVEL 19 MEQ/L (21-32); CHLORIDE LEVEL 114 MEQ/L (98-107); CREATININE FOR GFR 0.96 MG/DL (0.55-1.02); GLOMERULAR FILTRATION RATE > 60.0 (>45); GLUCOSE, FASTING 160 MG/DL (80-110); POTASSIUM SERUM 3.6 MEQ/L (3.5-5.1); SODIUM LEVEL 142 MEQ/L (136-145)
[2017-07-14] MEDS: SYMBICORT 160/4.5MCG INHALER 6GM INH SCH ×2 (07:37→19:23)
--- NOTE | 2017-07-14 07:58 | IPNPDOC ---
Subjective Date Seen The patient was seen on 07/14/17. Subjective Chief Complaint/HPI The patient is a 61-year-old female admitted with a reason for visit of Hypercalcemia,Uti. Events since last encounter Pt denies any pain, CP, Abd pain, SOB. Constitutional: Denies: Chills, Fever Pulmonary: Denies: Dyspnea Cardiovascular: Denies: Chest Pain Gastrointestinal: Denies: Abdominal Pain Objective Physical Examination General Exam: Positive: No Acute Distress Eye Exam: Positive: Conjunctiva & lids normal, Negative: Sclera icteric ENT Exam: Positive: Mucous membr. moist/pink Neck Exam: Positive: JVD (up to ears B/L), Negative: Lymphadenopathy Chest Exam: Positive: Clear to auscultation, Normal air movement Heart Exam: Positive: Irregular Rhythm Abdomen Exam: Positive: Normal bowel sounds, Soft, Negative: Tenderness Extremity Exam: Negative: Edema Psych Exam: Positive: Mood NL Assessment /Plan Problems (1) Superior vena cava syndrome Status: Acute Problem Specific Plan: Consult Specialist, Monitor Clinically, Repeat Labs Problem Text: 07/14 - Dr Moore, Dr Barrientos, Dr Luna following. CT of the chest with contrast demonstrates both an extrinsic compression, SVC process and intrinsic, luminal pericardial tumor progression process. Pt began palliative radiation yesterday under Dr. Luna. Dr Barrientos recommended carboplatin/paclitaxel ("Taxol") chemotherapy given on a weekly basis concurrent with palliative radiation and to continue following completion of radiation and would like to begin this on Thursday. (2) Pericardial mass Problem Specific Plan: Consult Specialist, Monitor Clinically, Repeat Labs Problem Text: 07/14 - Dr Floyd Singer, Dr Luna following. CT of the chest with contrast demonstrates both an extrinsic compression, SVC process and intrinsic, luminal pericardial tumor progression process. Pt began palliative radiation yesterday under Dr. Luna. Dr Barrientos recommended carboplatin/paclitaxel ("Taxol") chemotherapy given on a weekly basis concurrent with palliative radiation and to continue following completion of radiation and would like to begin this on Thursday. (3) JVD (jugular venous distension) Status: Acute Problem Specific Plan: Consult Specialist, Monitor Clinically Problem Text: See above. (4) Atrial flutter Status: Acute Response to Treatment: Uncontrolled Problem Specific Plan: Consult Specialist Problem Text: 07/13 - Cardiology following. On Digoxin. 07/12 - The digoxin seems to be working reasonably well to control her a flutter , unfortunately she had a 4 second pause today as well. Doctor Ezequiel was consulted and has changed her digoxin to every other day. I'll defer further management of this to him. (5) UTI (urinary tract infection) Status: Acute Problem Text: 07/14 - On IV aztreonam q 8 hours. Currently afebrile. WBC 11.5. 07/13 - On IV aztreonam q 8 hours. Fever during the night. Currently afebrile. 07/12 - Her renal function is improving. I will change her IV aztreonam to every 8 hours. This Escherichia coli is also sensitive to Bactrim, which may be a reasonable idea to change her to, but only after her renal function rebounds completely. (6) Acute renal failure superimposed on stage 3 chronic kidney disease Status: Acute Response to Treatment: Improving Problem Text: 07/13 - Creatinine has been trending down. 0.96 today. On IVF. Monitor. 07/13 - Creatinine has been trending down. 1.10 today. On IVF. Monitor. 07/12 - Her creatinine continues to improve, but her pressures also continue to be softer today despite the change from metoprolol to digoxin yesterday. I changed her IV fluid rate from 100 to 150 mL an hour. She has no signs of fluid overload and a recent echocardiogram shows an LVEF of 60%. I'll continue her at this increased rate but will continue to monitor her carefully for signs of fluid overload. (7) Hypercalcemia Status: Acute Response to Treatment: Improving Problem Text: 07/13 - Calcium trending down and is 8.9 today. 07/13 - Calcium trending down and is 9.4 today. 07/12 - Her calcium is down again to 10.6 today. Her ionized calcium is unsurprisingly elevated at 6.3. As long as her calcium continues to trend in the right direction we will continue to monitor. I do strongly believe that the hypercalcemia is related to her cancer. 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 See above. JFW: It's now Stage 4 Plan/VTE VTE Prophylaxis Ordered?: Yes (subcutaneous heparin, SCDs + TEDS) VS, I&O, 24H, Fishbone Vital Signs/I&O Vital Signs Date Time Temp Pulse Resp B/P (MAP) Pulse Ox O2 Delivery O2 Flow Rate FiO2 07/14/17 07:29 97.3 81 22 122/58 (79) 95 Room Air Laboratory Data 24H LABS Laboratory Tests 2 07/14/17 05:18: Immature Granulocyte % (Auto) 2.7H, White Blood Count 11.5H, Red Blood Count 2.97L, Hemoglobin 8.0L, Hematocrit 26.4L, Mean Corpuscular Volume 88.9, Mean Corpuscular Hemoglobin 26.9L, Mean Corpuscular Hemoglobin Concent 30.3L, Red Cell Distribution Width 17.0H, Platelet Count 199, Neutrophils (%) (Auto) 86.7H , Lymphocytes (%) (Auto) 6.5L, Monocytes (%) (Auto) 4.0, Eosinophils (%) (Auto) 0.0, Basophils (%) (Auto) 0.1, Neutrophils # (Auto) 9.9H, Lymphocytes # (Auto) 0.8L, Monocytes # (Auto) 0.5, Eosinophils # (Auto) 0.0, Basophils # (Auto) 0.0, Immature Granulocyte # (Auto) 0.3H, Nucleated Red Blood Cells % (auto) 0.0, Anion Gap 9, Glomerular Filtration Rate > 60.0, Blood Urea Nitrogen 25H, Creatinine 0.96, Sodium Level 142, Potassium Level 3.6, Chloride Level 114H, Carbon Dioxide Level 19L, Calcium Level 8.9 CBC/BMP Laboratory Tests 07/14/17 05:18 Red Blood Count 2.97 L, Mean Corpuscular Volume 88.9, Mean Corpuscular Hemoglobin 26.9 L, Mean Corpuscular Hemoglobin Concent 30.3 L, Red Cell Distribution Width 17.0 H, Neutrophils (%) (Auto) 86.7 H, Lymphocytes (%) (Auto ) 6.5 L, Monocytes (%) (Auto) 4.0, Eosinophils (%) (Auto) 0.0, Basophils (%) ( Auto) 0.1, Neutrophils # (Auto) 9.9 H, Lymphocytes # (Auto) 0.8 L, Monocytes # ( Auto) 0.5, Eosinophils # (Auto) 0.0, Basophils # (Auto) 0.0, Calcium Level 8.9 Microbiology Microbiology 9/29/17 Blood Culture - Preliminary, Resulted No Growth after 72 hours. All specime... 07/10/17 Blood Culture - Preliminary, Resulted No Growth after 72 hours. All specime... 07/13/17 Stool Occult Blood ([place]) - Final, Complete 07/10/17 Urine Culture - Final, Complete Escherichia Coli Fernando Martinez Jul 14, 2017 07:58 Koko Chirinos MD Jul 14, 2017 13:40
--- NOTE | 2017-07-14 08:27 | IPN ---
DATE: 07/14/2017 Unfortunately, the evaluation of Mrs. Carrasco condition yesterday leads to very unfavorable findings. Not only that she has compression of superior vena cava, but she has also very convincing intrapericardial and possibly even intramyocardial metastatic spread of her cancer. Apparently, discussion was had between Dr. Barrientos and Dr. Moore and the family. They want to continue aggressive management. As far as atrial flutter is concerned, she continues to be for the most part rate controlled. Last night when turning, she had one pause a little bit short of 5 seconds and was asymptomatic. From my perspective, there is not much else I can contribute in her care. The atrial flutter is really a reflection of her intrapericardial disease. We cut down on the digoxin dosing as I would much prefer if she was a little more tachycardia rather than bradycardic. She is not going to get any dose today. In my opinion, there is really minimal hope and all the efforts are made just to extend her life. I personally believe that she would be best served by comfort care. I am going to sign off her management. Please contact me if there is anything else that I can contribute.
[2017-07-14] MEDS: SODIUM CHLORIDE 0.9% INJ 10 ML SYR IV SCH (09:00)
[2017-07-14] MEDS: MULTIVITAMINS/MINERALS THERAP 1 TAB PO SCH (09:39)
[2017-07-14] MEDS: VITAMIN D 1,000 INTERNATIONAL UNITS TABLET PO SCH (09:39)
--- NOTE | 2017-07-14 13:12 | IPN ---
DATE: 07/14/2017 Ms. Carrasco is sitting up and breathing quite easily. She still has significant jugular venous distention (JVD). She underwent her first radiation treatment for SVC syndrome yesterday. Her vital signs show a T-max of 100.3 with a heart rate that ranged between 92 and 69 and is sinus rhythm, respiratory rate that is constant at 24, who is 94% saturated on room air and whose blood pressure is ranging between 106/68 to 94/50. Her intake and output the past 24 hours has been recorded as 3930 in and 1050 out for a positivity of 2880 mL. Her weight is pending today. She has taken in 1080 mL in by mouth intake and 2800 mL in IV intake. On physical examination, she has scattered rhonchi, most of which was cleared with coughing. Percussion notes are full to the diaphragm. Cardiac exam is without murmurs, clicks, gallops or rubs. I cannot her PMI. S1 and S2 are normal. Abdomen is soft, nontender. Bowel sounds are positive. There is no hepatomegaly. No CVA tenderness. She does have some right upper quadrant tenderness to deep palpation. Extremities show no pretibial edema. No calf tenderness. No differential swelling of the upper extremities. Skin is warm, dry and perfused without cyanosis or mottling including that of the nail beds and knees. Neck is supple. Her jugular venous distention (JVD) is past the angle of her jaw. No subcutaneous emphysema. Trachea is midline. Mouth shows her mucous membranes to be pink and moist. Lips and commissures without lesions. There is thrush. Eyes show her pupils to be equal and reactive. Extraocular motors intact. Sclera nonicteric. Neuro shows II through XII intact along with gross motor and gross sensation intact. Gait is not tested. Psychiatric shows her to be awake and alert, oriented times three with appropriate mood and affect, and conversational. Her white count today is 11.5, unchanged from yesterday, with a hemoglobin of hematocrit of 8.0 and 26.4, essentially unchanged from yesterday. Platelet count is 199 and differential shows 86% neutrophils, 6% lymphocytes, 4% monocytes. There are no immature forms. No toxic granulations. Her electrolytes are normal today except for a decreased total CO2 of 19. BUN and creatinine are 25 and 0.96 with a glucose of 160 and a calcium of 8.9. Her digoxin level yesterday was 1.4. There is no chest x-ray on her today. I reviewed her CT with contrast yesterday showing her SVC syndrome leading to her radiation therapy. Her liver dose look slightly enlarged with more congestion and more prominence of the portal veins. I suspect that is what is giving her right upper quadrant pain. Inferior vena cava looks to have unimpeded access to the right atrium, although the right atrium is quite indented and compressed leading to liver congestion. IMPRESSION: 1. Superior vena cava (SVC) syndrome. 2. Intrapericardial masses and metastasis most likely involving the myocardium. 3. Squamous cell carcinoma of the lung, biopsy proven. 4. Hypertension, somewhat improving. 5. Jugular venous distention (JVD) consistent with SVC syndrome continuing. 6. Depression and anxiety. PLAN AND DISCUSSION: She is now receiving radiation therapy for SVC syndrome. Dr. Barrientos is going to start chemotherapy tomorrow. Regretfully, there are no surgical options available for Mrs. Carrasco. A few days ago I did unplug her port with TPA. My role from here on in is quite limited and I will always be available for further consultation if needed.
[2017-07-14 20:15] LABS: ALBUMIN 2.1 GM/DL (3.2-5.2); ALBUMIN/GLOBULIN RATIO 0.58 (1.00-1.93); ALKALINE PHOSPHATASE 126 U/L (45-117); ALT/SGPT 33 U/L (12-78); ANION GAP 9 MEQ/L (8-16); AST/SGOT 14 U/L (15-37); BILIRUBIN,DIRECT 0.1 MG/DL (0.0-0.2); BILIRUBIN,TOTAL 0.2 MG/DL (0.2-1.0); BLOOD UREA NITROGEN 24 MG/DL (7-18); CALCIUM LEVEL 8.7 MG/DL (8.8-10.2); CARBON DIOXIDE LEVEL 18 MEQ/L (21-32); CHLORIDE LEVEL 116 MEQ/L (98-107); CREATININE FOR GFR 0.87 MG/DL (0.55-1.02); GLOMERULAR FILTRATION RATE > 60.0 (>45); GLUCOSE, FASTING 115 MG/DL (80-110); POTASSIUM SERUM 3.5 MEQ/L (3.5-5.1); SODIUM LEVEL 143 MEQ/L (136-145); TOTAL PROTEIN 5.7 GM/DL (6.4-8.2)
[2017-07-14] MEDS: LORazepam 2 MG/ML VIAL (J2060) IV PRN (21:13)
[2017-07-14] MEDS: ACETAMINOPHEN TAB 650MG DOSE (2X325MG) PO PRN (21:14)
[2017-07-15] VITALS (8 sets, daily range): BP systolic 100–165; BP diastolic 50–88; O2SAT 97
[2017-07-15] MEDS: AZTREONAM 1 GM in D5W 50 ML IV SCH ×3 (01:07→17:56)
[2017-07-15 05:21] LABS: BASO % 0.2 % (0.0-1.0); EOS # 0.1 10^3/uL (0.0-0.50); EOS % 0.3 % (0.0-3.0); IMMATURE GRANULOCYTE % 2.6 % (0-0); LYMPH % 5.3 % (24.0-44.0); MEAN CORPUSCULAR HEMOGLOBIN 27.2 pg (27.0-33.0); MEAN CORPUSCULAR HGB CONC 30.5 g/dl (32.0-36.5); MEAN CORPUSCULAR VOLUME 89.4 fl (80.0-96.0); MONO % 5.9 % (0.0-5.0); NEUTROPHILS # 16.7 10^3/uL (1.8-7.7); NEUTROPHILS % 85.7 % (36.0-66.0); PLATELET COUNT, AUTOMATED 291 10^3/uL (150-450); RED CELL DISTRIBUTION WIDTH 17.9 % (11.5-14.5); WHITE BLOOD COUNT 19.5 10^3/uL (4.0-10.0)
[2017-07-15] MEDS: HEPARIN SOD (PORCINE) 5000 UNITS/ML VIAL SC SCH ×3 (05:43→21:33)
[2017-07-15 05:47] LABS: MONO # 1.2 10^3/uL (0.0-0.8)
--- NOTE | 2017-07-15 05:48 | IPN ---
RADIATION ONCOLOGY SIMULATION NOTE DATE: 07/13/2017 CHART NUMBER: [id number]. SIMULATION NOTE: Ms. Carrasco was taken to the CT scan for CT simulation of her chest field. CT was accomplished without difficulty or discomfort. Radiation treatment planning is underway and radiation treatments will begin today as soon as the plan is completed. An immobilization device was created and will be used throughout the course of treatment. It was created without difficulty or discomfort. I was physically present throughout the course of CT simulation.
--- NOTE | 2017-07-15 07:45 | IPNPDOC ---
Subjective Date Seen The patient was seen on 07/15/17. Subjective Chief Complaint/HPI The patient is a 61-year-old female admitted with a reason for visit of Hypercalcemia,Uti. Events since last encounter Pt states she is about the same. Afebrile but temp of 100.4 last evening. Denies CP, Abd pain, SOB. Daughter at bedside. They note that pt had some anxiety during the night and received ativan which helped. Pt states she is still trying to decide on chemo, which is scheduled to begin sometime today. Pulmonary: Denies: Dyspnea Cardiovascular: Denies: Chest Pain Gastrointestinal: Denies: Abdominal Pain Objective Physical Examination General Exam: Positive: No Acute Distress Eye Exam: Positive: Conjunctiva & lids normal, Negative: Sclera icteric ENT Exam: Positive: Mucous membr. moist/pink Neck Exam: Positive: JVD (up to ears B/L), Negative: Lymphadenopathy Chest Exam: Positive: Clear to auscultation, Normal air movement Heart Exam: Positive: Irregular Rhythm Abdomen Exam: Positive: Normal bowel sounds, Soft, Negative: Tenderness Extremity Exam: Negative: Edema Psych Exam: Positive: Mood NL Assessment /Plan Problems (1) Superior vena cava syndrome Status: Acute Problem Specific Plan: Consult Specialist, Monitor Clinically, Repeat Labs Problem Text: 07/15 - Patient has started palliative radiation 07/[address] Luna.Chemotherapy has been planned to start today under Dr Barrientos, but pt is still trying to decide if she still wants to pursue chemotherapy/aggressive treatment. Dr Moore has been following pt as well, but has stated that there are no surgical options. 07/14 - Dr Moore, Dr Barrientos, Dr Luna following. CT of the chest with contrast demonstrates both an extrinsic compression, SVC process and intrinsic, luminal pericardial tumor progression process. Pt began palliative radiation yesterday under Dr. Luna. Dr Barrientos recommended carboplatin/paclitaxel ("Taxol") chemotherapy given on a weekly basis concurrent with palliative radiation and to continue following completion of radiation and would like to begin this on Thursday. (2) Pericardial mass Problem Specific Plan: Consult Specialist, Monitor Clinically, Repeat Labs Problem Text: 07/15 - Patient has started palliative radiation 07/[address] Luna.Chemotherapy has been planned to start today under Dr Barrientos, but pt is still trying to decide if she still wants to pursue chemotherapy/aggressive treatment. Dr Moore has been following pt as well, but has stated that there are no surgical options. 07/14 - Dr Moore, Dr Barrientos, Dr Luna following. CT of the chest with contrast demonstrates both an extrinsic compression, SVC process and intrinsic, luminal pericardial tumor progression process. Pt began palliative radiation yesterday under Dr. Luna. Dr Barrientos recommended carboplatin/paclitaxel ("Taxol") chemotherapy given on a weekly basis concurrent with palliative radiation and to continue following completion of radiation and would like to begin this on Thursday. (3) JVD (jugular venous distension) Status: Acute Problem Specific Plan: Consult Specialist, Monitor Clinically Problem Text: See above. (4) Atrial flutter Status: Acute Response to Treatment: Uncontrolled Problem Specific Plan: Consult Specialist Problem Text: 07/15 - Cardiology has been following. Pt is on Digoxin. Dr Chiang has been titrating her Digoxin dose. 07/13 - Cardiology following. On Digoxin. 07/12 - The digoxin seems to be working reasonably well to control her a flutter , unfortunately she had a 4 second pause today as well. Doctor Ezequiel was consulted and has changed her digoxin to every other day. I'll defer further management of this to him. (5) UTI (urinary tract infection) Status: Acute Problem Text: 07/15 - On IV aztreonam q 8 hours. Currently afebrile but Tmax of 100.4 last night. WBC has increased to 19.5 (11.5 yesterday). Patient is on steroids. Discuss with attending. 07/14 - On IV aztreonam q 8 hours. Currently afebrile. WBC 11.5. 07/13 - On IV aztreonam q 8 hours. Fever during the night. Currently afebrile. 07/12 - Her renal function is improving. I will change her IV aztreonam to every 8 hours. This Escherichia coli is also sensitive to Bactrim, which may be a reasonable idea to change her to, but only after her renal function rebounds completely. (6) Acute renal failure superimposed on stage 3 chronic kidney disease Status: Acute Response to Treatment: Improving Problem Text: 07/15 - Creatinine has been trending down. 0.87 today. On IVF. Monitor. 07/14 - Creatinine has been trending down. 0.96 today. On IVF. Monitor. 07/13 - Creatinine has been trending down. 1.10 today. On IVF. Monitor. 07/12 - Her creatinine continues to improve, but her pressures also continue to be softer today despite the change from metoprolol to digoxin yesterday. I changed her IV fluid rate from 100 to 150 mL an hour. She has no signs of fluid overload and a recent echocardiogram shows an LVEF of 60%. I'll continue her at this increased rate but will continue to monitor her carefully for signs of fluid overload. (7) Hypercalcemia Status: Acute Response to Treatment: Improving Problem Text: 07/15 - Calcium trending down and is 8.7 today. 07/14 - Calcium trending down and is 8.9 today. 07/13 - Calcium trending down and is 9.4 today. 07/12 - Her calcium is down again to 10.6 today. Her ionized calcium is unsurprisingly elevated at 6.3. As long as her calcium continues to trend in the right direction we will continue to monitor. I do strongly believe that the hypercalcemia is related to her cancer. 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 See above. JFW: It's now Stage 4 Plan/VTE VTE Prophylaxis Ordered?: Yes (subcutaneous heparin, SCDs + TEDS) VS, I&O, 24H, Fishbone Vital Signs/I&O Vital Signs Date Time Temp Pulse Resp B/P (MAP) Pulse Ox O2 Delivery O2 Flow Rate FiO2 07/15/17 04:00 98.6 89 24 100/50 (67) 94 Nasal Cannula 3.0 Laboratory Data 24H LABS Laboratory Tests 2 07/14/17 19:31: Anion Gap 9, Glomerular Filtration Rate > 60.0, Blood Urea Nitrogen 24H, Creatinine 0.87, Sodium Level 143, Potassium Level 3.5, Chloride Level 116H, Carbon Dioxide Level 18L, Calcium Level 8.7L, Aspartate Amino Transf (AST/SGOT) 14L, Alanine Aminotransferase (ALT/SGPT) 33, Alkaline Phosphatase 126H, Total Bilirubin 0.2#, Direct Bilirubin 0.1, Total Protein 5.7L, Albumin 2.1L, Albumin/ Globulin Ratio 0.58L 07/15/17 05:15: Immature Granulocyte % (Auto) 2.6H, White Blood Count 19.5H, Red Blood Count 3.12L, Hemoglobin 8.5L, Hematocrit 27.9L, Mean Corpuscular Volume 89.4, Mean Corpuscular Hemoglobin 27.2, Mean Corpuscular Hemoglobin Concent 30.5L, Red Cell Distribution Width 17.9H, Platelet Count 291, Neutrophils (%) (Auto) 85.7H , Lymphocytes (%) (Auto) 5.3L, Monocytes (%) (Auto) 5.9H, Eosinophils (%) (Auto ) 0.3, Basophils (%) (Auto) 0.2, Neutrophils # (Auto) 16.7H, Lymphocytes # (Auto ) 1.0L, Monocytes # (Auto) 1.2H, Eosinophils # (Auto) 0.1, Basophils # (Auto) 0.0, Immature Granulocyte # (Auto) 0.5H, Nucleated Red Blood Cells % (auto) 0.1H CBC/BMP Laboratory Tests 07/14/17 19:31 Calcium Level 8.7 L, Aspartate Amino Transf (AST/SGOT) 14 L, Alanine Aminotransferase (ALT/SGPT) 33, Alkaline Phosphatase 126 H, Total Bilirubin 0.2 #, Direct Bilirubin 0.1, Total Protein 5.7 L, Albumin 2.1 L 07/15/17 05:15 Red Blood Count 3.12 L, Mean Corpuscular Volume 89.4, Mean Corpuscular Hemoglobin 27.2, Mean Corpuscular Hemoglobin Concent 30.5 L, Red Cell Distribution Width 17.9 H, Neutrophils (%) (Auto) 85.7 H, Lymphocytes (%) (Auto ) 5.3 L, Monocytes (%) (Auto) 5.9 H, Eosinophils (%) (Auto) 0.3, Basophils (%) ( Auto) 0.2, Neutrophils # (Auto) 16.7 H, Lymphocytes # (Auto) 1.0 L, Monocytes # (Auto) 1.2 H, Eosinophils # (Auto) 0.1, Basophils # (Auto) 0.0 Microbiology Microbiology 07/10/17 Blood Culture - Preliminary, Resulted No Growth after 72 hours. All specime... 07/10/17 Blood Culture - Preliminary, Resulted No Growth after 72 hours. All specime... 07/13/17 Stool Occult Blood ([place]) - Final, Complete 07/10/17 Urine Culture - Final, Complete Escherichia Coli Fernando Martinez Jul 15, 2017 07:45
[2017-07-15] MEDS: SYMBICORT 160/4.5MCG INHALER 6GM INH SCH ×2 (08:18→19:21)
[2017-07-15] MEDS: SODIUM CHLORIDE 0.9% INJ 10 ML SYR IV SCH (08:26)
[2017-07-15] MEDS: MULTIVITAMINS/MINERALS THERAP 1 TAB PO SCH (08:50)
[2017-07-15] MEDS: VITAMIN D 1,000 INTERNATIONAL UNITS TABLET PO SCH (08:50)
[2017-07-15] MEDS: LORazepam 2 MG/ML VIAL (J2060) IV PRN (08:53)
[2017-07-15] MEDS ORDERED: DIGOXIN 0.125 MG TAB PO SCH (09:00)
[2017-07-15] MEDS ORDERED: LORazepam 2 MG/ML VIAL (J2060) IV PRN (12:30)
[2017-07-15] MEDS ORDERED: PALONOSETRON 0.25MG/5ML VIAL (ALOXI)(J2469 PER 25MCG) (FOR ONCOLOGY) IV ONE (12:30)
[2017-07-15] MEDS ORDERED: diphenhydrAMINE INJ 50MG/ML VIAL (J1200) IV ONE (12:30)
[2017-07-15] MEDS ORDERED: ONDANSETRON 4MG/2ML VIAL (J2405) IV PRN (12:30)
[2017-07-15] MEDS ORDERED: FAMOTIDINE IV BAG 20 MG in APPROPRIATE DILUENT 1 EA IV ONE (12:30)
[2017-07-15] MEDS ORDERED: FOSAPREPITANT 150 MG in NS 250 ML IV ONE (12:30)
[2017-07-15] MEDS ORDERED: NS IV ONE ×2 (13:00→14:00)
[2017-07-15] MEDS ORDERED: PACLITAXEL IV ONE (13:00)
--- NOTE | 2017-07-15 13:09 | IPN ---
MEDICAL ONCOLOGY INPATIENT FOLLOWUP DATE OF SERVICE: 07/14/2017 Arlet continues palliative radiation. Tonight, at the bedside, she has some labored breathing. Says she does not feel too well. Vital signs have been mostly stable, but she required oxygen earlier in the day. The current plan is for her to complete a course of palliative radiation with addition of palliative chemotherapy dosed on weekly basis with carboplatin and Taxol to start tomorrow. I reviewed again with Arlet and her daughter, Sonia, the risks, benefits, and side effects of treatment, focusing on the purely palliative nature of chemotherapy. However, because of intrapericardial and possibly myocardial involvement with tumor, there is a very significant risk of decompensation as tumor response to chemotherapy. This would not necessarily occur in the immediate term but could occur within days and weeks following chemotherapy administration. On the other hand, systemic chemotherapy is the only way to try to address cancer growing outside the radiation field. Radiation is not encompassing the heart due to potential cardiac toxicity. In very plain terms, I explained to Arlet the high-risk nature of her situation with or without palliative treatment and the uncertainty of whether she will respond well and early to chemotherapy. I asked her about advanced directives again today, as I have on prior occasions, and she again insists that she does not want to be intubated and does not want cardiopulmonary resuscitation (CPR). This has not been formalized; and we, therefore, reviewed the medical orders for life-sustaining treatment (MOLST) form together and completed it. She is now DO NOT RESUSCITATE (DNR)/DO NOT INTUBATE (DNI). This is highly appropriate for Arlet and concordant with her verbally-stated wishes. She was awake, alert, and participating in the entire conversation and signed the MOLST form. IMPRESSION: Advanced squamous cell carcinoma refractory to immunotherapy with pericardial progression, SVC syndrome, possible myocardial involvement of a dominant right upper lobe mass. ECOG performance status 3-4 undergoing palliative radiation for SVC syndrome. PLAN: 1. Medical orders for life-sustaining treatment form completed. The patient is DNR/DNI. 2. Arlet will think overnight whether she wants to proceed with chemotherapy. It is the only way to address cancer growing in the nonradiated field. The purpose is palliative not curative, and it is dosed at a weekly dose, which is usually highly tolerable for almost all patients. There is a risk of Taxol infusion reaction, which is present with any patient receiving Taxol and for which premedications and as needed medications are part of orders in nursing training and for the oncology nurse. Arlet's tumor may respond, but her cardiac involvement may complicate her picture, and she is at risk of sudden , unfortunately, due to cardiac complications. We reviewed all these issues tonight. She would like to think over things but for now would like to plan to proceed with chemotherapy. 07/15/17 3:45 pm addendum: Earlier today I spoke with Sonia Green, the patient's daughter and HCP; the stock pitcher had visited Ms. Carrasco and found her sedated and not participating well in conversation regarding whether she wished to proceed. Sonia reports Meagan verbalized NOT wanting to go forward with chemotherapy, about the time she completed radiation this morning. Further radiation is now canceled due to cardiac risk. I clarified with Sonia waiting to proceed with chemotherapy increases the risk of further clinical decompensation and rendering palliative chemotherapy futile. She acknowledged understanding this. As HCP she states her mother's most recent expressed wish is to avoid chemotherapy today due to feeling poorly. We therefore canceled treatment today. MTDD
[2017-07-15] MEDS: NS 1,000 ML IV SCH ×2 (13:35→17:56)
[2017-07-15] MEDS ORDERED: CARBOPLATIN IV ONE (14:00)
[2017-07-15] MEDS: ALBUTEROL SULFATE 2.5 MG/0.5 ML INH NEB SOLN INH PRN ×2 (16:57→20:07)
--- NOTE | 2017-07-15 18:42 | IPN ---
DATE: 07/15/2017 At the bedside Arlet alonzo is eating ice cream, up, smiling, talking to family. Jugular venous distention (JVD) considerably lower now. She denies problems breathing, on room air, not breathing with accessory muscles. Oxygen saturation 92. Her heart rate, however, is in the 140s on the monitor. At the bedside, the nurse raised the question of whether the patient should have chemotherapy again, interpreting for the patient that she was unsure. Some confusion arose as to whether the patient was expressing a desire for chemotherapy or whether she was trying to answer a question about the chemotherapy, and, in essence, a long discussion was undertaken to clarify the patient's wishes and the wisdom of palliative, salvage chemotherapy in the current setting. Once again, I reviewed the risks of the tumor progressing, involving the pericardium and myocardium, with or without chemotherapy. Regardless of chemotherapy, there is a risk of sudden cardiac or tamponade based on the location of the tumor and its unchecked growth. The patient has an approximate 20% chance of responding to carboplatin and Taxol in this setting. I spelled this out quite clearly Arlet alonzo has decided she would like to go forward with chemotherapy now. This is reasonable in the very short term, but waiting much further is unreasonable, as it will give her cancer a chance to continue to grow. Her risk of a sudden cardiac event remains irrespective of the choice for chemotherapy. This has to do with the location of her tumor, which is already causing superior vena cava (SVC) syndrome as well as tachycardia, atrial flutter. Appears to densely involve the pericardium and possibly the myocardium. I clarified for the patient and her daughter, Sonia, and the nurse and the patient's son-in-law that the patient's life expectancy may be on the order of weeks, possibly months, that the goal of palliative chemotherapy is to offer quality of life with somewhat control of disease and possibly offer extension of life into the months' range rather than weeks. Overall, however, her prognosis in the 6-month term remains very poor. IMPRESSION: 1. Locally advanced squamous cell carcinoma, now involving pericardium, likely myocardium, with superior vena cava (SVC) syndrome, status post three radiation treatments. Radiation was completed today. There is some ambiguity about whether there is a plan to continue it tomorrow. I defer to Dr. Baptiste's discretion. 2. I have asked the patient not to request Ativan just before going for radiation or chemotherapy so that she is of clear mind, nonsedated at the time she needs to interact with the chemotherapy nurse and the radiation oncology physician and nurses. Her sedation from Ativan this morning, by report, has led to some confusion of the picture of her wishes, though I am not truly sure this is the case. As documented in my previous note, I extensively discussed this case with the patient's daughter in the patient's stead when she was not able to discuss it with me, have communicated through the day with our oncology nurse and the patient's daughter regarding her wishes. It is this evening at the bedside that her wishes appear to have changed, and she now would like to proceed with chemotherapy in the morning. This then will be our plan. I will activate our chemotherapy nurse. As of today, she said she would be available to treat the patient tomorrow.
[2017-07-16] VITALS: BP 123/89
[2017-07-16] MEDS: AZTREONAM 1 GM in D5W 50 ML IV SCH ×2 (00:36→09:00)
[2017-07-16] MEDS: NS 1,000 ML IV SCH (01:26)
[2017-07-16 04:00] VITALS: BP 130/78
[2017-07-16 04:03] VITALS: BP 156/95
[2017-07-16] MEDS: HEPARIN SOD (PORCINE) 5000 UNITS/ML VIAL SC SCH ×2 (05:09→11:35)
[2017-07-16 05:41] VITALS: BP 179/106
[2017-07-16 05:47] LABS: MEAN CORPUSCULAR HEMOGLOBIN 27.1 pg (27.0-33.0); MEAN CORPUSCULAR HGB CONC 29.6 g/dl (32.0-36.5); MEAN CORPUSCULAR VOLUME 91.5 fl (80.0-96.0); PLATELET COUNT, AUTOMATED 488 10^3/uL (150-450); RED CELL DISTRIBUTION WIDTH 18.5 % (11.5-14.5)
[2017-07-16] MEDS: ALBUTEROL SULFATE 2.5 MG/0.5 ML INH NEB SOLN INH PRN (05:49)
[2017-07-16 05:53] LABS: WHITE BLOOD COUNT 31.9 10^3/uL (4.0-10.0)
[2017-07-16] MEDS ORDERED: FUROSEMIDE 20 MG/2 ML VIAL (J1940) IV ONE (06:00)
[2017-07-16] MEDS: SODIUM CHLORIDE 0.9% INJ 10 ML SYR IV PRN (06:06)
[2017-07-16 06:11] LABS: ADD MANUAL DIFFER YES; DIFF SLIDE NUMBER 20
[2017-07-16 06:14] LABS: BANDS 1 % (< 11); EOSINOPHILS 1 % (0-5)
[2017-07-16 06:15] LABS: PLATELET CLUMPS SMALL AMT
[2017-07-16 06:16] LABS: ANISOCYTOSIS 2+; HYPOCHROMASIA 2+
[2017-07-16 06:25] LABS: ANION GAP 11 MEQ/L (8-16); BLOOD UREA NITROGEN 23 MG/DL (7-18); CALCIUM LEVEL 8.4 MG/DL (8.8-10.2); CARBON DIOXIDE LEVEL 17 MEQ/L (21-32); CHLORIDE LEVEL 114 MEQ/L (98-107); CREATININE FOR GFR 0.89 MG/DL (0.55-1.02); GLOMERULAR FILTRATION RATE > 60.0 (>45); GLUCOSE, FASTING 138 MG/DL (80-110); POTASSIUM SERUM 4.1 MEQ/L (3.5-5.1); SODIUM LEVEL 142 MEQ/L (136-145)
[2017-07-16] MEDS ORDERED: MORPHINE 2 MG/ML 1ML SYRINGE IV PRN ×2 (06:45→12:00)
[2017-07-16 07:49] VITALS: BP 142/89
[2017-07-16] MEDS: VITAMIN D 1,000 INTERNATIONAL UNITS TABLET PO SCH (07:49)
[2017-07-16] MEDS: MULTIVITAMINS/MINERALS THERAP 1 TAB PO SCH (07:49)
--- NOTE | 2017-07-16 07:50 | IPNPDOC ---
Subjective Date Seen The patient was seen on 07/16/17. Subjective Chief Complaint/HPI The patient is a 61-year-old female admitted with a reason for visit of Hypercalcemia,Uti. Events since last encounter Pt with some respiratory distress. Now on Non-rebreather. Opens eyes to voice but closes them and does not speak. General: Reports: ROS Unobtainable Objective Physical Examination General Exam: Positive: Moderate Distress, Negative: No Acute Distress Eye Exam: Positive: Conjunctiva & lids normal, Negative: Sclera icteric ENT Exam: Positive: Mucous membr. moist/pink Neck Exam: Positive: JVD, Negative: Lymphadenopathy Chest Exam: Positive: Diminished Heart Exam: Positive: Bradycardic, Irregular Rhythm Abdomen Exam: Positive: Normal bowel sounds, Soft, Negative: Tenderness Extremity Exam: Negative: Edema Assessment /Plan Problems (1) Superior vena cava syndrome Status: Acute Problem Specific Plan: Consult Specialist, Monitor Clinically, Repeat Labs Problem Text: 07/16 - Dr Barrientos and Dr Luna following. Pt started palliative radiation. Chemotherapy was planned but family thinks they will not go for the chemo as pt has deteriorated significantly since yesterday. Pt DNR. Comfort care discussed. 07/15 - Patient has started palliative radiation 07/[address] Luna.Chemotherapy has been planned to start today under Dr Barrientos, but pt is still trying to decide if she still wants to pursue chemotherapy/aggressive treatment. Dr Moore has been following pt as well, but has stated that there are no surgical options. 07/14 - Dr Moore, Dr Barrientos, Dr Luna following. CT of the chest with contrast demonstrates both an extrinsic compression, SVC process and intrinsic, luminal pericardial tumor progression process. Pt began palliative radiation yesterday under Dr. Luna. Dr Barrientos recommended carboplatin/paclitaxel ("Taxol") chemotherapy given on a weekly basis concurrent with palliative radiation and to continue following completion of radiation and would like to begin this on Thursday. (2) Pericardial mass Problem Specific Plan: Consult Specialist, Monitor Clinically, Repeat Labs Problem Text: 07/16 - Dr Barrientos and Dr Luna following. Pt started palliative radiation. Chemotherapy was planned but family thinks they will not go for the chemo as pt has deteriorated significantly since yesterday. Pt DNR. Comfort care discussed. 07/15 - Patient has started palliative radiation 07/[address] Luna.Chemotherapy has been planned to start today under Dr Barrientos, but pt is still trying to decide if she still wants to pursue chemotherapy/aggressive treatment. Dr Moore has been following pt as well, but has stated that there are no surgical options. 07/14 - Dr Moore, Dr Barrientos, Dr Luna following. CT of the chest with contrast demonstrates both an extrinsic compression, SVC process and intrinsic, luminal pericardial tumor progression process. Pt began palliative radiation yesterday under Dr. Luna. Dr Barrientos recommended carboplatin/paclitaxel ("Taxol") chemotherapy given on a weekly basis concurrent with palliative radiation and to continue following completion of radiation and would like to begin this on Thursday. (3) JVD (jugular venous distension) Status: Acute Problem Specific Plan: Consult Specialist, Monitor Clinically Problem Text: See above. (4) Atrial flutter Status: Acute Response to Treatment: Uncontrolled Problem Specific Plan: Consult Specialist Problem Text: 07/15 - Cardiology has been following. Pt is on Digoxin. Dr Chiang has been titrating her Digoxin dose. 07/13 - Cardiology following. On Digoxin. 07/12 - The digoxin seems to be working reasonably well to control her a flutter , unfortunately she had a 4 second pause today as well. Doctor Ezequiel was consulted and has changed her digoxin to every other day. I'll defer further management of this to him. (5) UTI (urinary tract infection) Status: Acute Problem Text: 07/16 - On IV aztreonam q 8 hours. WBC up to 31.9. 07/15 - On IV aztreonam q 8 hours. Currently afebrile but Tmax of 100.4 last night. WBC has increased to 19.5 (11.5 yesterday). Patient is on steroids. Discuss with attending. 07/14 - On IV aztreonam q 8 hours. Currently afebrile. WBC 11.5. 07/13 - On IV aztreonam q 8 hours. Fever during the night. Currently afebrile. 07/12 - Her renal function is improving. I will change her IV aztreonam to every 8 hours. This Escherichia coli is also sensitive to Bactrim, which may be a reasonable idea to change her to, but only after her renal function rebounds completely. (6) Acute renal failure superimposed on stage 3 chronic kidney disease Status: Acute Response to Treatment: Improving Problem Text: 10/ - Creatinine 0.89. 10/4 - Creatinine has been trending down. 0.87 today. On IVF. Monitor. 10/3 - Creatinine has been trending down. 0.96 today. On IVF. Monitor. 10/2 - Creatinine has been trending down. 1.10 today. On IVF. Monitor. 07/12 - Her creatinine continues to improve, but her pressures also continue to be softer today despite the change from metoprolol to digoxin yesterday. I changed her IV fluid rate from 100 to 150 mL an hour. She has no signs of fluid overload and a recent echocardiogram shows an LVEF of 60%. I'll continue her at this increased rate but will continue to monitor her carefully for signs of fluid overload. (7) Hypercalcemia Status: Acute Response to Treatment: Improving Problem Text: 07/16 - Calcium trending down and is 8.4 today. 10/ - Calcium trending down and is 8.7 today. 10 - Calcium trending down and is 8.9 today. 10/ - Calcium trending down and is 9.4 today. 07/12 - Her calcium is down again to 10.6 today. Her ionized calcium is unsurprisingly elevated at 6.3. As long as her calcium continues to trend in the right direction we will continue to monitor. I do strongly believe that the hypercalcemia is related to her cancer. 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 See above. JFW: It's now Stage 4 Plan/VTE VTE Prophylaxis Ordered?: Yes (subcutaneous heparin, SCDs + TEDS) VS, I&O, 24H, Fishbone Vital Signs/I&O Vital Signs Date Time Temp Pulse Resp B/P (MAP) Pulse Ox O2 Delivery O2 Flow Rate FiO2 07/16/17 05:49 32 07/16/17 05:41 131 179/106 (130) 82 Nasal Cannula 4.0 07/16/17 04:00 99.6 Laboratory Data 24H LABS Laboratory Tests 2 07/16/17 05:35: Immature Granulocyte % (Auto) , White Blood Count 31.9*H, Red Blood Count 3.51L , Hemoglobin 9.5L, Hematocrit 32.1L, Mean Corpuscular Volume 91.5, Mean Corpuscular Hemoglobin 27.1, Mean Corpuscular Hemoglobin Concent 29.6L, Red Cell Distribution Width 18.5H, Platelet Count 488H, Neutrophils # (Auto) , Monocytes # (Auto) , Nucleated Red Blood Cells % (auto) 0.5H, Neutrophils 87H, Band Neutrophils 1, Lymphocytes (Manual) 2L, Monocytes (Manual) 2, Eosinophils ( Manual) 1, Metamyelocytes 3H, Myelocytes 4H, Platelet Estimate NORMAL, Clumped Platelets SMALL AMT, Hypochromasia 2+, Anisocytosis 2+, Anion Gap 11, Glomerular Filtration Rate > 60.0, Blood Urea Nitrogen 23H, Creatinine 0.89, Sodium Level 142, Potassium Level 4.1, Chloride Level 114H, Carbon Dioxide Level 17L, Calcium Level 8.4L CBC/BMP Laboratory Tests 07/16/17 05:35 Red Blood Count 3.51 L, Mean Corpuscular Volume 91.5, Mean Corpuscular Hemoglobin 27.1, Mean Corpuscular Hemoglobin Concent 29.6 L, Red Cell Distribution Width 18.5 H, Neutrophils # (Auto) , Monocytes # (Auto) , Calcium Level 8.4 L Microbiology Microbiology 07/10/17 Blood Culture - Final, Complete NO GROWTH AFTER 5 DAYS 07/10/17 Blood Culture - Final, Complete NO GROWTH AFTER 5 DAYS 07/13/17 Stool Occult Blood ([place]) - Final, Complete 07/10/17 Urine Culture - Final, Complete Escherichia Coli Fernando Martinez Jul 16, 2017 07:50
[2017-07-16] MEDS: SODIUM CHLORIDE 0.9% INJ 10 ML SYR IV SCH (09:00)
[2017-07-16] MEDS: SYMBICORT 160/4.5MCG INHALER 6GM INH SCH (09:00)
--- NOTE | 2017-07-16 11:59 | IPN ---
DATE: 07/16/2017 I met with Arlet Scott's daughter. A decision has been made to transition to comfort measures status. Focus will now be on palliative care and relief of discomfort and suffering. I will transfer her to the floor, move her out of ICU so they do not having the restrictions on visiting. PROGRAM DIRECTOR/MUSIC DIRECTOR orders have been placed.
[2017-07-16] MEDS ORDERED: SCOPOLAMINE 1.5 MG TRANSDERMAL TD PRN (12:00)
[2017-07-16] MEDS: LORazepam 2 MG/ML VIAL (J2060) IV PRN (14:49)
[2017-07-16] MEDS ORDERED: NS 1,000 ML IV SCH (17:00)
[2017-07-16] MEDS ORDERED: MORPHINE SULF IN 0.9% NACL 100 MG in APPROPRIATE DILUENT 1 EA IV SCH ×2 (17:15)
[2017-07-16] MEDS ORDERED: LORazepam 2 MG/ML VIAL (J2060) IV PRN (17:15)
--- NOTE | 2017-07-17 15:31 | DSES ---
DATE OF ADMISSION: 07/10/2017 DATE OF DISCHARGE/DATE OF EXPIRATION: 07/16/2017 DIAGNOSIS: Squamous cell carcinoma of the lung with metastases. SECONDARY DIAGNOSES: 1. Superior vena cava syndrome. 2. 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 3. Acute respiratory failure with hypoxemia. 4. Atrial flutter. 5. Escherichia (E.) coli urinary tract infection. 6. Acute renal failure superimposed on stage III chronic kidney disease. 7. Hypercalcemia from malignancy. 8. Chronic obstructive pulmonary disease (COPD). 9. History of squamous cell carcinoma stage IV. 10. Postobstructive pneumonia. HISTORY: Arlet Carrasco was admitted on 07/10 for generalized weakness. She had been to her oncologist and was weak and sent to be admitted. Details as per history and physical from admission. HOSPITAL COURSE: Patient admitted to an intensive care unit (ICU) bed. She was hypercalcemic and showing postobstructive pneumonia. She was admitted to the ICU. She was found on exam the second day of hospitalization to have findings consistent with superior vena cava syndrome. CT scans were done and showed impingement in the superior vena cava from mass, pericardial metastases and postobstructive pneumonia. We had consultations from oncology, Dr. Barrientos, cardiology, Dr. Chiang, thoracic surgery, Dr. oMore, as well as radiation oncology, Dr. Baptiste. Prognosis was poor, and palliation was all that could be offered. She had acute radiation sessions but then became fatigued. There was a plan initially for inpatient chemotherapy which was abandoned when the patient's clinical condition deteriorated. She was placed on comfort measures and on 07/16/2017.
== END 2017-07-16 19:17 | disposition expired | DRG 136 ==
LOC: M ED 10:07 → M ED INP 15:07 → M ICU 07-11 06:15 → M MSPAV 07-16 13:30
PROVIDERS: ADMIT Hospitalist; ATTEND Family Medicine
DX: C34.2 Malignant neoplasm of middle lobe, bronchus or lung (principal); J96.01 Acute respiratory failure with hypoxia; J18.9 Pneumonia, unspecified organism; C79.89 Secondary malignant neoplasm of other specified sites; I95.9 Hypotension, unspecified; N17.9 Acute kidney failure, unspecified; I48.92 Unspecified atrial flutter; N18.3 Chronic kidney disease, stage 3 (moderate); E83.52 Hypercalcemia; N39.0 Urinary tract infection, site not specified; I87.1 Compression of vein; J44.9 Chronic obstructive pulmonary disease, unspecified; Z51.5 Encounter for palliative care; Z66 Do not resuscitate; B96.20 Unspecified Escherichia coli [E. coli] as the cause of diseases classified elsewhere; F32.9 Major depressive disorder, single episode, unspecified; F41.9 Anxiety disorder, unspecified; Z92.21 Personal history of antineoplastic chemotherapy; Z98.51 Tubal ligation status; Z87.891 Personal history of nicotine dependence; Z88.0 Allergy status to penicillin; Z88.6 Allergy status to analgesic agent; Z91.041 Radiographic dye allergy status; Z91.018 Allergy to other foods; Z95.828 Presence of other vascular implants and grafts; Z79.899 Other long term (current) drug therapy; Z92.3 Personal history of irradiation

== ENCOUNTER 2017-07-13 08:00 | Outpatient (RCR) | payer OTHER ==
[~2017-07-13 08:00] MED LIST changes: +KEYT1INJ IV; +LEVA750T7
--- NOTE | 2017-07-14 08:51 | RADONC ---
RADIATION ONCOLOGY CONSULTATION NOTE DATE: 07/13/2017 CHART NUMBER: [id number] DIAGNOSIS: Lung cancer. STAGE: IIIB. ECOG PERFORMANCE STATUS: 3. CONSULTATION NOTE: Ms. 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 HISTORY OF PRESENT ILLNESS: The patient is well-known in our department and was last seen by us on May 14, 2017. At that time we discussed the bilateral nature of her disease and her poor pulmonary functions. The patient at that time as an FEV1 of 1.0. Her diffusion capacity was 42%. I had presented her at multidisciplinary tumor conference and it was decided that in order to incorporate all the disease we would incorporate way too much lung for her to tolerate. In addition, the entire heart would be in the field. She was deemed not curable and this would destroy her remaining quality of life. Since that time the patient has developed swelling in her upper extremities and neck. CT scan was done on 07/13/2017 which showed SVC syndrome. We are now being contacted to see if we can deliver emergency radiation therapy to her superior vena cava. Clearly we still cannot treat her pericardial disease. We have been called for a focus beam of radiation. PAST MEDICAL HISTORY: The patient's past medical history is positive for a tubal ligation 30 years ago and carpal tunnel syndrome. SOCIAL HISTORY: The patient has smoked one pack of cigarettes per day for 50 years. She does not abuse alcohol. ALLERGIES: The patient is allergic to PENICILLIN and ASPIRIN. FAMILY HISTORY: The patient's family history is positive for a mother with breast cancer. REVIEW OF SYSTEMS: The patient's review of systems is positive for weakness in her arms and legs as well as swelling of her upper arms. She also notes swelling in her neck. She denies nausea, vomiting, fevers, chills, night sweats, diplopia, headaches, urinary or bowel difficulties. PHYSICAL EXAMINATION: I visited the patient in her hospital room. She is resting calmly in her bed. She is not using any nasal oxygen. HEENT: Exam is normocephalic, atraumatic. Extraocular movements are intact. She does appear to have bilateral venous distension. There is no palpable cervical, supraclavicular, infraclavicular lymphadenopathy present. Her lungs are generally clear to auscultation. Her abdomen is benign with no splenomegaly, masses or tenderness. ASSESSMENT: The patient is presenting to us today with SVC syndrome. I have personally reviewed the patient's CT scan. I had a very lengthy discussion with this patient and her daughter. I believe considering the emergent nature of this situation. She is a candidate for focused radiation to the SVC region. I am planning on treating her today and delivering a dose of 3000 cGy in 10 fractions of 300 cGy each. The patient is aware that she has limited lung function and the radiation most likely will result in the need for oxygen after 8 weeks or so if she is still with us. There is the possibility of full respiratory decompensation with his radiation in approximately two months' time. In light of the fact that we have a rapidly developing emergent situation, however, I think it is reasonable to offer her this therapy at this point. I have reviewed the CT scans with Dr. Moore who also notes marked increase in the pericardial disease. I have spoken with Dr. Barrientos who is planning on delivering urgent inpatient chemotherapy for that portion of her disease. Overall unfortunately this patient is not doing well. I have had a lengthy discussion with this patient and her daughter regarding the possibilities of hospice. I have given her a hospice brochure and asked that they [facility] consultant with hospice. It is not unreasonable to deliver the radiation, get her past this emergency and then consider hospice care. Thank you for allowing us to participate in the care of this very pleasant woman, I will keep you informed of any new developments as they occur. cc: MD Filiberto Gallagher MD Benjamin Rudd, MD Joseph Wetterhahn, MD
--- NOTE | 2017-07-21 06:47 | RADONC ---
RADIATION ONCOLOGY TREATMENT SUMMARY DATE: 07/20/2017 CHART NUMBER: [id number] DIAGNOSIS: Lung cancer. STAGE: III B. ECOG PERFORMANCE STATUS: . TREATMENT SUMMARY: Ms. Carrasco was a pleasant 61-year-old white female who presented to us with massive disease involving her pericardium as well as with SVC syndrome. Her diagnosis was a squamous cell carcinoma of the right lung. We treated the patient to the area of the SVC for a dose of 900 cGy delivered in three fractions of 300 cGy each over two elapsed days from 07/13/2017 through 07/15/2017. The patient was treated on the linear accelerator utilizing an 18 MV photon beam via anterior and posterior parallel opposed aranda. Unfortunately, the patient's condition continued to deteriorate and she discontinued therapy. I understand she has . I wish we could have been of more benefit to this very pleasant woman and her family. If I can provide you with any information, please free to contact me anytime. cc: MD Filiberto Gallagher MD Benjamin Rudd, MD Joseph Wetterhahn, MD
== END 2017-07-16 ==
LOC: M ONCR 08:00
PROVIDERS: ATTEND Radiology Radiation Oncology
DX: I87.1 Compression of vein (principal); C34.91 Malignant neoplasm of unspecified part of right bronchus or lung; C78.1 Secondary malignant neoplasm of mediastinum; C79.89 Secondary malignant neoplasm of other specified sites; F17.210 Nicotine dependence, cigarettes, uncomplicated; Z88.0 Allergy status to penicillin; Z88.8 Allergy status to other drugs, medicaments and biological substances; Z80.3 Family history of malignant neoplasm of breast